=== PATIENT | female | born 1940 | race Caucasian/White ===

== ENCOUNTER 2017-09-20 17:24 | Emergency (ER) | payer MEDICARE, BC ==
[2017-09-20] MEDS ORDERED: Lidocaine 1% with EPINEPHrine 1:100,000 20 ML MDV INFILT ONE (17:25)
--- NOTE | 2017-09-20 18:20 | EDM.PDOC ---
ED HPI GENERAL MEDICAL PROBLEM - General Chief Complaint: Laceration Stated Complaint: LAC Time Seen by Provider: 09/20/17 17:25 Source of Information: Reports: Patient, EMS, EMS Notes Reviewed History Limitations: Reports: No Limitations - History of Present Illness INITIAL COMMENTS - FREE TEXT/NARRATIVE: Eugenie Bledsoe comes into [facility] ED by EMS following a fall at home unwitnessed about 2 hours ago. There was no reported LOC. Spouse summoned EMS about an hour prior to arrival. There is some R periorbital swelling laterally with a minor laceration. She is alert, orientated and cooperative. Her tetanus status is unknown at this time. - Related Data Allergies Allergy/AdvReac Type Severity Reaction Status Date / Time ibuprofen [From Advil] Allergy Vomiting Verified 02/10/13 13:55 Penicillins Allergy Rash Verified 02/10/13 13:55 pregabalin [From Lyrica] Allergy Edema Verified 12/20/13 15:49 Home Meds: Home Meds Estrogens, Conjugated [Premarin Vaginal Crm] 2 gram VAG BEDTIME PRN 02/10/13 [ History] Hydrochlorothiazide 12.5 mg PO DAILY 02/10/13 [History] Losartan [Cozaar] 100 mg PO DAILY 02/10/13 [History] Lovastatin 20 mg PO BEDTIME 02/10/13 [History] Omeprazole 20 mg PO ACBREAKFAST 02/10/13 [History] Calcium Carbonate/Vitamin D2 [Oyster Shell Calcium-Vit D Tab] 1 ea PO BID [History] Exenatide Microspheres [Bydureon Pen] 2 mg SQ MO 12/20/13 [History] amLODIPine [Norvasc] 10 mg PO DAILY 12/20/13 [History] Acetaminophen 1,000 mg PO Q6H 11/02/15 [History] Cholecalciferol (Vitamin D3) [Vitamin D3] 1,000 unit PO DAILY 11/02/15 [History] Cyanocobalamin (Vitamin B-12) [Vitamin B-12] 500 mcg PO DAILY 11/02/15 [History] Folic Acid 2.4 mg PO DAILY 11/02/15 [History] Gabapentin [Neurontin] 300 mg PO BID 11/02/15 [History] Magnesium Oxide [Magnesium] 400 mg PO BEDTIME 11/02/15 [History] Multivitamin [Multi-Vitamin Daily] 1 tab PO DAILY 11/02/15 [History] Potassium 99 mg PO DAILY 11/02/15 [History] Ubidecarenone [Coenzyme Q10] 100 mg PO DAILY 11/02/15 [History] Warfarin [Coumadin] 5 mg PO 1600 #30 tablet 11/11/15 [Rx] traMADol [Ultram] 50 mg PO Q6H PRN #30 tablet 11/11/15 [Rx] Past Medical History - Past Health History Medical/Surgical History: Denies Medical/Surgical History Cardiovascular History: Reports: High Cholesterol, Hypertension Respiratory History: Reports: PE, Other (See Below) Other Respiratory History: PE and infarction Gastrointestinal History: Reports: Colon Polyp, GERD, Hemorrhoids, Other (See Below) Other Gastrointestinal History: internal hemorrohoids 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 Neurological History: Reports: Neuropathy, Diabetic Other Neuro History: Cold laser tx on bilateral feet: Nov 2016 to Jan 2017 Endocrine/Metabolic History: Reports: Diabetes, Type II - Past Surgical History Musculoskeletal Surgical History: Reports: Arthroscopic Knee, Other (See Below) Other Musculoskeletal Surgeries/Procedures:: Bilateral SI fusion: 06-18-16 and Social & Family History - Family History Cardiac: Reports: Bypass, Hypertension, Other (See Below) Other Cardiac Family History: Quad bypass Neurological: Reports: Dementia Endocrine/Metabolic: Reports: Diabetes, type II Hematologic: Reports: Anemia Oncologic: Reports: Colon, Other (See Below) Other Oncologic Family History: Mesothelioma ED ROS GENERAL - Review of Systems Review Of Systems: ROS reveals no pertinent complaints other than HPI. ED EXAM, SKIN/RASH Exam: See Below Exam Limited By: No Limitations General Appearance: Alert, WD/WN, No Apparent Distress Eye Exam: Bilateral Eye: EOMI, Normal Fundi, PERRL, Other (R lateral periorbital laceration of facial margin) Ears: Normal External Exam Nose: Normal Inspection Throat/Mouth: Normal Inspection, Normal Lips, Normal Teeth, Normal Oropharynx, Normal Voice Head: Other (facial laceration measuring 2.5 cm along R periorbital rim laterally) Neck: Normal Inspection, Supple Respiratory/Chest: Lungs Clear, Normal Breath Sounds, Chest Non-Tender Cardiovascular: Regular Rate, Rhythm, No Murmur Back Exam: Normal Inspection Extremities: Normal Inspection Neurological: Alert, Oriented, CN II-XII Intact, Normal Cognition, No Motor/ Sensory Deficits Psychiatric: Normal Affect, Normal Mood Skin: Warm, Dry, No Rash ED SKIN PROCEDURES - Laceration/Wound Repair Right Lateral Face Lac/Wound length In cm: 2.5 Appearance: Subcutaneous, Linear, Clean Distal NVT: Neuro & Vascular Intact Anesthetic Type: Local Local Anesthesia - Lidocaine (Xylocaine): 1% with EPI Local Anesthetic Volume: 3cc Skin Prep: Chlorhexidine (Hibiciens), Saline Exploration/Debridement/Repair: Wound Explored, No Foreign Material Found Closed with: Sutures Suture Size: other (5-0) # of Sutures: 7 Suture Type: Nylon, Interrupted Drain Placement: No Sterile Dressing Applied: Nurse Tetanus Status Addressed: Yes Complications: No Course - Vital Signs Text/Narrative:: Patient tolerated procedure well. She will check with Clinic tomorrow regarding tetanus vax status. Departure - Departure Time of Disposition: 18:20 Disposition: Home, Self-Care 01 Condition: Good Clinical Impression: Laceration of face Qualifiers: Encounter type: initial encounter Qualified Code(s): S01.81XA - Laceration without foreign body of other part of head, initial encounter - Discharge Information *PRESCRIPTION DRUG MONITORING PROGRAM REVIEWED*: Not Applicable *COPY OF PRESCRIPTION DRUG MONITORING REPORT IN PATIENT [place]: Not Applicable Referrals: Vasyl Cuevas MD [Primary Care Provider] - - Problem List & Annotations (1) Laceration of face SNOMED Code(s): 283473492 Code(s): S01.81XA - LACERATION W/O FOREIGN BODY OF OTH PART OF HEAD, INIT ENCNTR Status: Acute Current Visit: Yes Annotation/Comment:: Routine wound cares, and SR in 1 week. Qualifiers: Encounter type: initial encounter Qualified Code(s): S01.81XA - Laceration without foreign body of other part of head, initial encounter - Problem List Review Problem List Initiated/Reviewed/Updated: Yes - Assessment/Plan Plan: Follow up with PCP in 1 week for SR.
[2017-09-20 20:32] VITALS: BP 156/71
== END 2017-09-20 18:45 | disposition home or self-care (01) ==
LOC: FB.ED 17:24
DX: S01.81XA Laceration without foreign body of other part of head, initial encounter (principal); I10 Essential (primary) hypertension; E78.00 Pure hypercholesterolemia, unspecified; E11.40 Type 2 diabetes mellitus with diabetic neuropathy, unspecified; K21.9 Gastro-esophageal reflux disease without esophagitis; Z79.01 Long term (current) use of anticoagulants; Z79.899 Other long term (current) drug therapy; Z88.6 Allergy status to analgesic agent; Z88.0 Allergy status to penicillin; W19.XXXA Unspecified fall, initial encounter; Y92.009 Unspecified place in unspecified non-institutional (private) residence as the place of occurrence of the external cause
CPT/HCPCS: 12011; 99283

== ENCOUNTER 2018-04-16 13:53 | Inpatient (IN) | payer MEDICARE, BC ==
[2018-04-16] MEDS ORDERED: Acetaminophen/Diphenhydramine 500-25 MG Tab PO PRN (17:10)
--- NOTE | 2018-04-16 17:34 | PCM.HP ---
H&P History of Present Illness - General Date of Service: 04/16/18 Admit Problem/Dx: Admission Diagnosis/Problem Admission Diagnosis/Problem Cervical vertebral fusion Source of Information: Patient History Limitations: Reports: No Limitations - History of Present Illness Initial Comments - Free Text/Narative: This is a 77-year-old female patient is transferred from [place] after having spinal fusion and then a couple days later a low back fusion. Patient was on Coumadin and did bridging. Apparently a aorta filter was placed for the surgery because she has history of bilateral PEs. She has little pain in her neck and back but this bearable. She has not moved her bowels in 7 days but is passing gas. She says she does have some neuropathy that they think is coming from her low back and that's in her legs. She has no other issues today. - Related Data Allergies/Adverse Reactions: Allergies Allergy/AdvReac Type Severity Reaction Status Date / Time ibuprofen [From Advil] Allergy Vomiting Verified 09/20/17 20:36 Penicillins Allergy Rash Verified 09/20/17 20:36 pregabalin [From Lyrica] Allergy Edema Verified 09/20/17 20:36 Home Medications: Home Meds Hydrochlorothiazide 12.5 mg PO DAILY 02/10/13 [History] Losartan [Cozaar] 100 mg PO DAILY 02/10/13 [History] Omeprazole 20 mg PO Q48H 02/10/13 [History] Exenatide Microspheres [Bydureon Pen] 2 mg SQ TU@0900 12/20/13 [History] Cholecalciferol (Vitamin D3) [Vitamin D3] 1,000 unit PO DAILY 11/02/15 [History] Gabapentin [Neurontin] 300 mg PO BEDTIME 11/02/15 [History] Multivitamin [Multi-Vitamin Daily] 1 tab PO BID 11/02/15 [History] Potassium 99 mg PO BID 11/02/15 [History] Ubidecarenone [Coenzyme Q10] 100 mg PO DAILY 11/02/15 [History] traMADol [Ultram] 50 mg PO Q6H PRN #30 tablet 11/11/15 [Rx] Acetaminophen/Diphenhydramine [Tylenol Pm Ex-Strength Caplet] 1 - 2 each PO BEDTIME PRN 04/16/18 [History] Folic Acid 1.2 mg PO DAILY 04/16/18 [History] Gabapentin [Neurontin] 200 mg PO DAILY 04/16/18 [History] L.acidoph,Paracasei, B.lactis [Probiotic] 1 cap PO DAILY 04/16/18 [History] Lutein 20 mg PO DAILY 04/16/18 [History] Magnesium 200 mg PO BEDTIME 04/16/18 [History] Ranitidine HCl [Ranitidine] 150 mg PO Q48H 04/16/18 [History] Simvastatin 20 mg PO BEDTIME 04/16/18 [History] Past Medical History - Past Health History Medical/Surgical History: Denies Medical/Surgical History Cardiovascular History: Reports: High Cholesterol, Hypertension Respiratory History: Reports: PE, Other (See Below) Other Respiratory History: PE and infarction Gastrointestinal History: Reports: Colon Polyp, GERD, Hemorrhoids, Other (See Below) Other Gastrointestinal History: internal hemorrohoids 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 Neurological History: Reports: Neuropathy, Diabetic Other Neuro History: Cold laser tx on bilateral feet: Nov 2016 to Jan 2017 Endocrine/Metabolic History: Reports: Diabetes, Type II - Past Surgical History Musculoskeletal Surgical History: Reports: Arthroscopic Knee, Other (See Below) Other Musculoskeletal Surgeries/Procedures:: Bilateral SI fusion: 06-18-16 and Social & Family History - Family History Cardiac: Reports: Bypass, Hypertension, Other (See Below) Other Cardiac Family History: Quad bypass Neurological: Reports: Dementia Endocrine/Metabolic: Reports: Diabetes, type II Hematologic: Reports: Anemia Oncologic: Reports: Colon, Other (See Below) Other Oncologic Family History: Mesothelioma H&P Review of Systems - Review of Systems: Review Of Systems: See Below General: Reports: No Symptoms HEENT: Reports: No Symptoms Pulmonary: Reports: No Symptoms Cardiovascular: Reports: No Symptoms Gastrointestinal: Reports: No Symptoms Genitourinary: Reports: No Symptoms Skin: Reports: Other (See history of present illness) Psychiatric: Reports: No Symptoms Neurological: Reports: Numbness Hematologic/Lymphatic: Reports: No Symptoms Immunologic: Reports: No Symptoms Exam - Exam Exam: See Below - Vital Signs Vital Signs: Last Vital Signs Temp 97.6 F 02/04/19 16:00 Pulse 73 04/16/18 16:00 Resp 18 04/16/18 16:00 BP 162/71 H 04/16/18 16:00 Pulse Ox 97 04/16/18 16:00 Weight: 176 lb 4 oz - Exam General: Alert, Oriented, Cooperative HEENT: Hearing Intact, Mucosa Moist & [place], Posterior Pharynx Clear, TMs Clear Neck: Other (Cervical hard collar) Lungs: Clear to Auscultation Cardiovascular: Regular Rate, Regular Rhythm. No: Systolic Murmur GI/Abdominal Exam: Normal Bowel Sounds, Soft, Non-Tender, No Organomegaly, No Distention, No Abnormal Bruit, No Mass Back Exam: Other (Not able to examine because she is lying in bed) Extremities: Normal Inspection, Non-Tender, No Pedal Edema, Other (Weakness legs bilateral. Arms normal strength bilateral) Skin: Warm, Dry, Intact Neurological: Normal Speech, Normal Tone Neuro Extensive - Motor, Sensory, Reflexes: No: Normal Gait Psychiatric: Alert, Normal Affect, Normal Mood - Problem List (1) Cervical vertebral fusion SNOMED Code(s): 142856907 ICD Code: M43.22 - FUSION OF SPINE, CERVICAL REGION Status: Acute Current Visit: Yes (2) S/P lumbar spinal fusion SNOMED Code(s): 98738187338680, 33869774, 32561046772641 ICD Code: Z98.1 - ARTHRODESIS STATUS Status: Acute Current Visit: No (3) Chronic anticoagulation SNOMED Code(s): 661040715 ICD Code: Z79.01 - SPECIAL NEEDS NANNY (CURRENT) USE OF ANTICOAGULANTS Status: Chronic Current Visit: No (4) Hypertension SNOMED Code(s): 34412807 ICD Code: I10 - ESSENTIAL (PRIMARY) HYPERTENSION Status: Chronic Current Visit: No (5) Type 2 diabetes mellitus SNOMED Code(s): 40194606 ICD Code: E11.9 - TYPE 2 DIABETES MELLITUS WITHOUT COMPLICATIONS Status: Chronic Current Visit: No (6) Constipation SNOMED Code(s): 71885650 ICD Code: K59.00 - CONSTIPATION, UNSPECIFIED Status: Acute Current Visit : Yes Problem List Initiated/Reviewed/Updated: Yes Orders Last 24hrs: Active Orders 24 hr Category Date Time Status Patient Status [ADT] Routine ADT 04/16/18 17:07 Ordered Blood Glucose Check, Bedside [RC] [facility] Care 04/16/18 17:07 Ordered Height and Weight [RC] WEEKLY Care 04/16/18 17:07 Ordered Oxygen Therapy [RC] PRN Care 04/16/18 17:07 Ordered Up With Assistance [RC] ASDIRECTED Care 04/16/18 17:07 Ordered Vital Signs [RC] PER UNIT ROUTINE Care 04/16/18 17:07 Ordered OT Evaluation and Treatment [CONS] Routine Cons 04/16/18 17:07 Ordered PT Evaluation and Treatment [CONS] Routine Cons 04/16/18 17:07 Ordered Consistent Carbohydrate Diet [DIET] Diet 04/16/18 Dinner Ordered Acetaminophen/Diphenhydramine [Tylenol PM Extra Med 04/16/18 17:10 Ordered Strength] 1 each PO BEDTIME PRN Cholecalciferol (Vitamin D3) [Vitamin D3] Med 04/17/18 09:00 Ordered 1,000 units PO DAILY Exenatide Microspheres [Bydureon Pen] Med 04/17/18 09:00 Ordered 2 mg SQ TU@0900 Folic Acid [Folic Acid] Med 04/17/18 09:00 Ordered 1.2 mg PO DAILY Gabapentin [Neurontin] Med 04/17/18 09:00 Ordered 200 mg PO DAILY Gabapentin [Neurontin] Med 04/16/18 21:00 Ordered 300 mg PO BEDTIME L.acidoph,Paracasei, B.lactis [Probiotic] Med 04/17/18 09:00 Ordered 1 cap PO DAILY Losartan [Cozaar] Med 04/17/18 09:00 Ordered 100 mg PO DAILY Lutein [Lutein] Med 04/17/18 09:00 Ordered 20 mg PO DAILY Magnesium [Magnesium] Med 04/16/18 21:00 Ordered 200 mg PO BEDTIME Multivitamins [Tab-A-Champ] Med 04/16/18 21:00 Ordered 1 tab PO BID Omeprazole [Omeprazole] Med 04/16/18 17:15 Ordered 20 mg PO Q48H Polyethylene Glycol 3350 [MiraLAX] Med 04/17/18 09:00 Ordered 17 gm PO DAILY Potassium [Potassium] Med 04/16/18 21:00 Ordered 99 mg PO BID Ranitidine HCl [Ranitidine] Med 04/16/18 17:15 Ordered 150 mg PO Q48H Simvastatin [Zocor] Med 04/16/18 21:00 Ordered 20 mg PO BEDTIME Ubidecarenone [Coenzyme Q10] Med 04/17/18 09:00 Ordered 100 mg PO DAILY hydroCHLOROthiazide Med 04/17/18 09:00 Ordered 12.5 mg PO DAILY traMADol [Ultram] Med 04/16/18 17:10 Ordered 50 mg PO Q6H PRN Resuscitation Status Routine Resus Stat 04/16/18 17:07 Ordered Medication Orders Acetaminophen/Diphenhydramine HCl (Tylenol Pm Extra Strength) 1 tab PO BEDTIME PRN PRN Reason: Sleep Cholecalciferol (Vitamin D3) 1,000 units PO DAILY [facility] Coenzyme Q10 (Coenzyme Q10) 100 mg PO DAILY [facility] Folic Acid (Folic Acid) 1.2 mg PO DAILY [facility] Gabapentin (Neurontin) 200 mg PO DAILY [facility] Gabapentin (Neurontin) 300 mg PO BEDTIME [facility] Hydrochlorothiazide (Hydrochlorothiazide) 12.5 mg PO DAILY [facility] Losartan Potassium (Cozaar) 100 mg PO DAILY [facility] Lutein (Lutein) 20 mg PO DAILY [facility] Magnesium Oxide (Magnesium Oxide) 200 mg PO BEDTIME AMY Multivitamins/Minerals/Vitamin C (Tab-A-Champ) 1 tab PO BID AMY Non-Formulary Medication (Exenatide Microspheres [Bydureon Pen]) 2 mg SQ TU@ 0900 [facility] Non-Formulary Medication (L.Acidoph,Paracasei, B.Lactis [Probiotic]) 1 cap PO DAILY [facility]Y Non-Formulary Medication (Omeprazole [Omeprazole]) 20 mg PO Q48H AMY Non-Formulary Medication (Potassium [Potassium]) 99 mg PO BID AMY Non-Formulary Medication (Ranitidine Hcl [Ranitidine]) 150 mg PO Q48H AMY Polyethylene Glycol (Miralax) 17 gm PO DAILY AMY Simvastatin (Zocor) 20 mg PO BEDTIME AMY Tramadol HCl (Ultram) 50 mg PO Q6H PRN PRN Reason: Pain Assessment/Plan Comment:: 1. Admit to swing bed. 2. Discussed living fry. She wants to be resuscitated and it doesn't go well and her family's to make the call. Full resuscitation. 3. Restart home medications. 4. PT/OT. 5. Diabetic diet with Accu-Cheks twice a day. 6. MiraLAX daily for constipation. 7. Patient's normally and Coumadin and was on Lovenox. The Coumadin was stopped and were supposed to recheck recheck INR on April 20 and restart Coumadin on the . On the order it says hold Lovenox. She does have a vena cava filter in. I tried to call the surgeon to make sure these are accurate orders. I also talked to Dr. Cuevas in the referred me to the surgeon. I could not get a hold of him.
[2018-04-16] MEDS: traMADol 50 MG Tab PO PRN (19:41)
[2018-04-16] MEDS: Gabapentin 300 MG Cap PO SCH (20:29)
[2018-04-16] MEDS: Multivitamin Tab PO SCH (20:31)
[2018-04-16] MEDS: Simvastatin 20 MG Tab PO SCH (20:31)
[2018-04-16] MEDS: Magnesium Oxide 400 MG Tab PO SCH (20:31)
[2018-04-16] MEDS ORDERED: Non-Formulary Medication 1 Each (Potassium [Potassium] 99 MG) PO SCH (21:00)
[2018-04-16] MEDS: Magnesium Hydroxide 400 MG/5 ML Susp 30 ML Cup PO PRN (21:25)
[2018-04-17] MEDS: traMADol 50 MG Tab PO PRN ×3 (07:42→20:22)
[2018-04-17] MEDS: Gabapentin 100 MG Cap PO SCH (08:03)
[2018-04-17] MEDS: Saccharomyces Boulardii (Probiotic) 250 MG Cap PO SCH (08:28)
[2018-04-17] MEDS: Famotidine 20 MG Tab PO SCH (08:28)
[2018-04-17] MEDS: Polyethylene Glycol 3350 Powder 17 GM Packet PO SCH (08:28)
[2018-04-17] MEDS: Multivitamin Tab PO SCH ×2 (08:28→20:21)
[2018-04-17] MEDS: Losartan 100 MG Tab PO SCH (08:29)
[2018-04-17] MEDS: Folic Acid 0.4 MG Tab PO SCH (08:29)
[2018-04-17] MEDS: Cholecalciferol (Vitamin D3) 1,000 Unit Tab PO SCH (08:29)
[2018-04-17] MEDS: Hydrochlorothiazide 12.5 MG Cap PO SCH (08:29)
--- NOTE | 2018-04-17 11:06 | PCM.SN ---
<Ann Alejandro - Last Filed: 04/17/18 11:05> - Free Text/Narrative Note: Neurosurgeon was contacted regarding anticoagulation and per his recommendations , warfarin will be restarted this MondayApr 21 and there is no need for bridging. We can check INR on Monday. <Melo Brito - Last Filed: 04/18/18 17:50> - Free Text/Narrative Note: I saw this patient with the resident and agree with the above note.
[2018-04-17] MEDS: Acetaminophen 325 MG Tab PO PRN ×2 (13:28→18:13)
[2018-04-17] MEDS: Magnesium Oxide 400 MG Tab PO SCH (20:20)
[2018-04-17] MEDS: Simvastatin 20 MG Tab PO SCH (20:21)
[2018-04-17] MEDS: Gabapentin 300 MG Cap PO SCH (20:21)
[2018-04-18] MEDS: traMADol 50 MG Tab PO PRN ×3 (04:13→18:02)
[2018-04-18] MEDS: Magnesium Hydroxide 400 MG/5 ML Susp 30 ML Cup PO PRN (04:18)
[2018-04-18] MEDS: Pantoprazole 40 MG Tab.CR PO SCH (06:40)
[2018-04-18] MEDS ORDERED: oxyCODONE 5 MG Tab PO PRN (08:18)
--- NOTE | 2018-04-18 08:18 | PCM.PN ---
- General Info Date of Service: 04/18/18 Admission Dx/Problem (Free Text): Patient complaining of right upper arm and lower arm pain. She has a neck brace on and just had surgery. She can move her arm without any difficulty. Tramadol is not helping. They stated hydrocodone if her mental status changes. - Patient Data Vitals - Most Recent: Last Vital Signs Temp 97.3 F 04/17/18 08:37 Pulse 69 04/17/18 08:37 Resp 20 04/17/18 08:37 BP 170/78 H 04/17/18 08:37 Pulse Ox 95 04/17/18 08:37 Weight - Most Recent: 176 lb 4 oz Lab Results Last 24 Hours: Laboratory Results - last 24 hr 04/17/18 04/18/18 Range/Units 17:22 06:12 POC Glucose 114 98 (80-116) mg/dL Med Orders - Current: Current Medications Acetaminophen (Tylenol) 650 mg PO Q4H PRN PRN Reason: break through pain Last Admin: 04/17/18 18:13 Dose: 650 mg Acetaminophen/Diphenhydramine HCl (Tylenol Pm Extra Strength) 1 tab PO BEDTIME PRN PRN Reason: Sleep Last Admin: 04/17/18 22:44 Dose: 1 tab Cholecalciferol (Vitamin D3) 1,000 units PO DAILY [facility] Last Admin: 04/17/18 08:29 Dose: 1,000 units Coenzyme Q10 (Coenzyme Q10) 100 mg PO DAILY [facility] Last Admin: 04/17/18 08:28 Dose: 100 mg Famotidine (Pepcid) 20 mg PO Q48H [facility] Last Admin: 04/17/18 08:28 Dose: 20 mg Folic Acid (Folic Acid) 1.2 mg PO DAILY [facility] Last Admin: 04/17/18 08:29 Dose: 1.2 mg Gabapentin (Neurontin) 200 mg PO DAILY [facility] Last Admin: 04/17/18 08:03 Dose: 200 mg Gabapentin (Neurontin) 300 mg PO BEDTIME [facility] Last Admin: 04/17/18 20:21 Dose: 300 mg Hydrochlorothiazide (Hydrochlorothiazide) 12.5 mg PO DAILY [facility] Last Admin: 04/17/18 08:29 Dose: 12.5 mg Losartan Potassium (Cozaar) 100 mg PO DAILY [facility] Last Admin: 04/17/18 08:29 Dose: 100 mg Lutein (Lutein) 20 mg PO DAILY [facility] Last Admin: 04/17/18 08:28 Dose: 20 mg Magnesium Hydroxide (Milk Of Magnesia) 30 ml PO DAILY PRN PRN Reason: Constipation Last Admin: 04/18/18 04:18 Dose: 30 ml Magnesium Oxide (Magnesium Oxide) 200 mg PO BEDTIME [facility] Last Admin: 04/17/18 20:20 Dose: 200 mg Multivitamins/Minerals/Vitamin C (Tab-A-Champ) 1 tab PO BID [facility] Last Admin: 04/17/18 20:21 Dose: 1 tab Non-Formulary Medication (Exenatide Microspheres [Bydureon Pen]) 2 mg SQ TU@ 0900 [facility] Non-Formulary Medication (Potassium [Potassium]) 99 mg PO BID [facility] Pantoprazole Sodium (Protonix) 40 mg PO Q48H [facility] Last Admin: 04/18/18 06:40 Dose: 40 mg Polyethylene Glycol (Miralax) 17 gm PO DAILY [facility] Last Admin: 04/17/18 08:28 Dose: 17 gm Saccharomyces Boulardii (Florastor) 250 mg PO DAILY [facility] Last Admin: 04/17/18 08:28 Dose: 250 mg Simvastatin (Zocor) 20 mg PO BEDTIME [facility] Last Admin: 04/17/18 20:21 Dose: 20 mg Tramadol HCl (Ultram) 50 mg PO Q6H PRN PRN Reason: Pain Last Admin: 04/18/18 04:13 Dose: 50 mg Warfarin Sodium (Coumadin) 5 mg PO DAILY@1600 [facility] Warfarin Sodium (Coumadin Sliding Scale) 1 each PO ASDIRECTED [facility] - Exam General: Alert, Oriented HEENT: Other (Hard collar on. I did not remove it for exam.) Lungs: Normal Respiratory Effort Extremities: Other (Right arm has no pain on palpation. Normal range of motion without difficulty) - Problem List & Annotations (1) Cervical vertebral fusion SNOMED Code(s): 443709662 Code(s): M43.22 - FUSION OF SPINE, CERVICAL REGION Status: Acute Current Visit: Yes (2) S/P lumbar spinal fusion SNOMED Code(s): 37797113486029, 03535909, [id number] Code(s): Z98.1 - ARTHRODESIS STATUS Status: Acute Current Visit: No (3) Chronic anticoagulation SNOMED Code(s): 626932805 Code(s): Z79.01 - DETENTION (CURRENT) USE OF ANTICOAGULANTS Status: Chronic Current Visit: No (4) Hypertension SNOMED Code(s): 19553534 Code(s): I10 - ESSENTIAL (PRIMARY) HYPERTENSION Status: Chronic Current Visit: No (5) Type 2 diabetes mellitus SNOMED Code(s): 08749106 Code(s): E11.9 - TYPE 2 DIABETES MELLITUS WITHOUT COMPLICATIONS Status: Chronic Current Visit: No (6) Constipation SNOMED Code(s): 59998751 Code(s): K59.00 - CONSTIPATION, UNSPECIFIED Status: Acute Current Visit: Yes - Problem List Review Problem List Initiated/Reviewed/Updated: Yes - My Orders Last 24 Hours: My Active Orders 04/17/18 09:00 Cholecalciferol (Vitamin D3) [Vitamin D3] 1,000 units PO DAILY Exenatide Microspheres [Bydureon Pen] 2 mg SQ TU@0900 Famotidine [Pepcid] 20 mg PO Q48H Folic Acid 1.2 mg PO DAILY Gabapentin [Neurontin] 200 mg PO DAILY Losartan [Cozaar] 100 mg PO DAILY Lutein 20 mg PO DAILY Polyethylene Glycol 3350 [MiraLAX] 17 gm PO DAILY Saccharomyces Boulardii [Florastor] 250 mg PO DAILY Ubidecarenone [Coenzyme Q10] 100 mg PO DAILY hydroCHLOROthiazide 12.5 mg PO DAILY 04/17/18 13:20 Acetaminophen [Tylenol] 650 mg PO Q4H PRN 04/18/18 07:30 Pantoprazole [ProTONIX] 40 mg PO Q48H 04/20/18 06:00 INR,PT,PROTHROMBIN TIME [COAG] Routine 04/21/18 06:00 INR,PT,PROTHROMBIN TIME [COAG] DAILY 04/21/18 08:30 Warfarin Sliding Scale [Coumadin Sliding Scale] 1 each PO ASDIRECTED 04/21/18 16:00 Warfarin [Coumadin] 5 mg PO DAILY@1600 04/22/18 06:00 INR,PT,PROTHROMBIN TIME [COAG] DAILY 04/23/18 06:00 INR,PT,PROTHROMBIN TIME [COAG] DAILY 04/24/18 06:00 INR,PT,PROTHROMBIN TIME [COAG] DAILY 04/25/18 06:00 INR,PT,PROTHROMBIN TIME [COAG] DAILY - Plan Plan:: 1. Try some oxycodone if the tramadol does not help her pain. Use tramadol for mild pain oxycodone for severe pain. Watch for mental status changes.
[2018-04-18] MEDS ORDERED: Magnesium Citrate Solution 296 ML Bottle PO ONE (08:31)
[2018-04-18] MEDS ORDERED: Magnesium Hydroxide 400 MG/5 ML Susp 30 ML Cup PO ONE (08:40)
[2018-04-18] MEDS: Losartan 100 MG Tab PO SCH (08:45)
[2018-04-18] MEDS: Polyethylene Glycol 3350 Powder 17 GM Packet PO SCH (08:46)
[2018-04-18] MEDS: Saccharomyces Boulardii (Probiotic) 250 MG Cap PO SCH (08:46)
[2018-04-18] MEDS: Hydrochlorothiazide 12.5 MG Cap PO SCH (08:46)
[2018-04-18] MEDS: Folic Acid 0.4 MG Tab PO SCH (08:46)
[2018-04-18] MEDS: Cholecalciferol (Vitamin D3) 1,000 Unit Tab PO SCH (08:46)
[2018-04-18] MEDS: Multivitamin Tab PO SCH ×2 (08:47→21:39)
[2018-04-18] MEDS: Gabapentin 100 MG Cap PO SCH (08:59)
[2018-04-18] MEDS: EXENATIDE MICROSPHERES 2 MG SQ SCH (14:31)
[2018-04-18] MEDS: Acetaminophen 325 MG Tab PO PRN ×2 (17:17→22:10)
[2018-04-18] MEDS: Magnesium Oxide 400 MG Tab PO SCH (21:38)
[2018-04-18] MEDS: Simvastatin 20 MG Tab PO SCH (21:38)
[2018-04-18] MEDS: Gabapentin 300 MG Cap PO SCH (21:40)
[2018-04-19] MEDS: traMADol 50 MG Tab PO PRN ×3 (01:09→15:45)
[2018-04-19] MEDS: Acetaminophen 325 MG Tab PO PRN (04:14)
[2018-04-19] MEDS: Cholecalciferol (Vitamin D3) 1,000 Unit Tab PO SCH (08:41)
[2018-04-19] MEDS: Folic Acid 0.4 MG Tab PO SCH (08:41)
[2018-04-19] MEDS: Saccharomyces Boulardii (Probiotic) 250 MG Cap PO SCH (08:42)
[2018-04-19] MEDS: Famotidine 20 MG Tab PO SCH (08:42)
[2018-04-19] MEDS: Losartan 100 MG Tab PO SCH (08:42)
[2018-04-19] MEDS: Multivitamin Tab PO SCH ×2 (08:43→20:40)
[2018-04-19] MEDS: Polyethylene Glycol 3350 Powder 17 GM Packet PO SCH (08:43)
[2018-04-19] MEDS: Hydrochlorothiazide 12.5 MG Cap PO SCH (08:43)
[2018-04-19] MEDS: Gabapentin 100 MG Cap PO SCH (08:46)
[2018-04-19] MEDS: Celecoxib 200 MG Cap PO SCH ×2 (11:30→20:40)
[2018-04-19] MEDS: Magnesium Oxide 400 MG Tab PO SCH (20:40)
[2018-04-19] MEDS: Simvastatin 20 MG Tab PO SCH (20:40)
[2018-04-19] MEDS: Gabapentin 300 MG Cap PO SCH (20:41)
[2018-04-20] MEDS: traMADol 50 MG Tab PO PRN ×4 (00:04→18:00)
[2018-04-20] MEDS: Acetaminophen 325 MG Tab PO PRN (04:26)
[2018-04-20] MEDS: Pantoprazole 40 MG Tab.CR PO SCH (07:52)
[2018-04-20] MEDS ORDERED: Acetaminophen 500 MG Tab PO SCH (08:00)
[2018-04-20] MEDS: Celecoxib 200 MG Cap PO SCH (08:01)
[2018-04-20] MEDS: Losartan 100 MG Tab PO SCH (08:02)
[2018-04-20] MEDS: Folic Acid 0.4 MG Tab PO SCH (08:04)
[2018-04-20] MEDS: Hydrochlorothiazide 12.5 MG Cap PO SCH (08:05)
[2018-04-20] MEDS: Multivitamin Tab PO SCH ×2 (08:06→20:52)
[2018-04-20] MEDS: Cholecalciferol (Vitamin D3) 1,000 Unit Tab PO SCH (08:06)
[2018-04-20] MEDS: Polyethylene Glycol 3350 Powder 17 GM Packet PO SCH (08:07)
[2018-04-20] MEDS: Gabapentin 100 MG Cap PO SCH (08:20)
[2018-04-20] MEDS: Saccharomyces Boulardii (Probiotic) 250 MG Cap PO SCH (08:25)
[2018-04-20] MEDS: busPIRone 5 MG Tab PO SCH ×2 (08:26→20:49)
--- NOTE | 2018-04-20 11:06 | CT ---
INDICATION: Status of arthrodesis. CT CERVICAL SPINE WITHOUT CONTRAST: Spiral 2.5 mm axial sections were obtained through the cervical spine with sagittal and coronal reconstructions, 04/20/18 - no comparisons were available at the time of dictation. Total exam DLP = 538.86 mGy-cm. Vertebral body heights were fairly well-maintained, except for some mild loss anteriorly at C7. The C2-3, C3-4 disk spaces appeared relatively normal. Degenerative changes of moderate to moderately severe degree are noted at the atlantoodontoid joint. The atlas and the axis were intact. There is a fusion noted at the C4 through C7 level with a plate and screws in place, which appear to be intact. Position and alignment of the vertebral elements in this area appear to be satisfactory. Disk spacers are present. The screws at the C7 level are at the extreme caudal aspect of the vertebral body and are not fully advanced into the vertebral body. Comparison with previous examinations will be made when they become available. The appearance of the fusion was otherwise unremarkable. The prevertebral space appears to be normal, except for impingement on it by the plate and screws of the inferior portion of the fusion. No evidence of spinal stenosis is seen. The lungs included on the study showed no acute process with scarring at the left apex and to a minimal extent right apex. IMPRESSION: Overall stable appearance of fusion at the C4 through C7 level. Comparison with previous examination will be obtained when they become available. MTDD
--- NOTE | 2018-04-20 11:18 | CT ---
INDICATION: Status of arthrodesis. CT LUMBOSACRAL SPINE WITHOUT CONTRAST: Spiral 2.5 mm axial sections were obtained through the lumbosacral spine with sagittal and coronal reconstructions , 04/20/18. Comparisons were not available at the time of dictation. Total exam DLP = 1,268.50 mGy-cm. A mild dextroconvex rotoscoliosis of the lumbar spine is noted. Incidental note is made of an IVC umbrella. There also is noted what appears to be a 41 mm parapelvic cyst of the right kidney. There also appears to be a cyst at the left kidney lower pole, only partially visualized. Calcifications are also noted in the aorta, splenic, renal, and iliac arteries. There is noted fusion at the L3 through L5 vertebral bodies with a disk spacer at the L3-4 level and at the L4-5 level. There is evidence of laminectomy at the L4-5 level. Narrowing of the L5-S1 disk space is noted with hypertrophic degenerative changes at that level. Hypertrophic degenerative changes are noted at the posterior elements of L2-3 through L5-S1 to mild to moderate degree , most severe at the lower levels. There is also disk disease at L2-3 with vacuum disk phenomenon and hypertrophic degenerative changes off vertebral bodies at that level, as well as at the remainder of the thoracolumbar spine. There are also noted multiple pins extending transversely through the sacroiliac joints bilaterally. There are three of these triangular metallic pins bilaterally. The fusion appears to be grossly intact with satisfactory alignment of vertebral elements included. IMPRESSION: 1. Fusion L3 through L5 appears satisfactory, await previous images for comparison. 2. Satisfactory position and alignment of sacroiliac joints with three pins noted fixing the joints in place. 3. Degenerative changes and disk disease, as noted above. 4. Apparent cystic changes in the kidneys. [facility]
--- NOTE | 2018-04-20 13:31 | PCM.PN ---
- General Info Date of Service: 04/20/18 Subjective Update: Patient is a 77-year-old female who has a long-standing history of osteoarthritis with cervical degenerative joint disease and lumbar degenerative joint disease. She also has a history of DVT with PE and a previous surgery around 2010 on her lumbar spine. She made the decision to go ahead with Dr. Higuera from [place] (neurosurgeon) to have cervical spinal fusion done but because she would need to go off her anticoagulation for this an IVC filter was placed on 04/03/18 with the intent to remove this in 3 months after her surgery. She then proceeded to have C4-C7 decompression and fusion anteriorly in [place] on 04/10/18. The plan was to wait until a month out and then do lumbar spine fusion but unfortunately the patient had severe neurogenic claudication symptoms on 04/12/18 and was taken to the operating room emergently for L3-L4 fusion with screw placement. Pain control was a significant issue after the patient's surgeries and she was treated initially with tramadol and then put on hydrocodone which caused her to be encephalopathic and was stopped. She is also on gabapentin chronically for pain and has continued on her home dose of 200 mg every morning and 300 mg every evening. Past medical history significant for: Hypertension Hyperlipidemia Fibromyalgia Diabetes mellitus type 2 with peripheral neuropathy History of anemia History of DVT with PE bilaterally and on chronic anticoagulation. Patient had an IVC filter placed before her procedure since she was going to need to be off anticoagulation due to the spinal fusion. Osteoarthritis with a history of bursitis with bilateral shoulders Gastroesophageal reflux disease Status post total knee arthroplasty The patient has struggled with pain control here since she was admitted here on 04/16/18 for swing bed status. She was started on Celebrex yesterday but I recommended we discontinue that as neurosurgery had requested absolute no anticoagulation until at least 10 days out from her lumbar spine procedure with the plan to gradually drift up on her warfarin. The Celebrex did improve her pain dramatically. She continues to have left arm tingling and burning particularly in the shoulder and it greatly limits her therapy participation. At rest she is fairly comfortable. She has no chest pain, no shortness of breath , no nausea, no vomiting. She was struggling with constipation but now has been moving her bowels although it's been loose, and she's had no leg pain or swelling. - Patient Data Vitals - Most Recent: Last Vital Signs Temp 35.7 C 04/20/18 07:55 Pulse 84 04/20/18 07:55 Resp 18 04/20/18 07:55 BP 161/68 H 04/20/18 08:02 Pulse Ox 98 04/20/18 07:55 Weight - Most Recent: 75.863 kg Lab Results Last 24 Hours: Laboratory Results - last 24 hr 04/19/18 04/20/18 04/20/18 Range/Units 16:56 05:54 05:55 PT 10.2 (8.7-11.1) INR 1.05 (0.89-1.13) POC Glucose 152 H 139 H (80-116) mg/dL Med Orders - Current: Current Medications Acetaminophen (Tylenol Extra Strength) 1,000 mg PO Q8H [facility] Buspirone HCl (Buspar) 5 mg PO BID [facility] Last Admin: 04/20/18 08:26 Dose: 5 mg Cholecalciferol (Vitamin D3) 1,000 units PO DAILY [facility] Last Admin: 04/20/18 08:06 Dose: 1,000 units Coenzyme Q10 (Coenzyme Q10) 100 mg PO DAILY [facility] Last Admin: 04/20/18 08:01 Dose: 100 mg Famotidine (Pepcid) 20 mg PO Q48H [facility] Last Admin: 04/19/18 08:42 Dose: 20 mg Folic Acid (Folic Acid) 1.2 mg PO DAILY [facility] Last Admin: 04/20/18 08:04 Dose: 1.2 mg Gabapentin (Neurontin) 300 mg PO TID [facility] Hydrochlorothiazide (Hydrochlorothiazide) 12.5 mg PO DAILY [facility] Last Admin: 04/20/18 08:05 Dose: 12.5 mg Losartan Potassium (Cozaar) 100 mg PO DAILY [facility] Last Admin: 04/20/18 08:02 Dose: 100 mg Lutein (Lutein) 20 mg PO DAILY [facility] Last Admin: 04/20/18 08:05 Dose: 20 mg Magnesium Hydroxide (Milk Of Magnesia) 30 ml PO DAILY PRN PRN Reason: Constipation Last Admin: 04/18/18 04:18 Dose: 30 ml Magnesium Oxide (Magnesium Oxide) 200 mg PO BEDTIME [facility] Last Admin: 04/19/18 20:40 Dose: 200 mg Multivitamins/Minerals/Vitamin C (Tab-A-Champ) 1 tab PO BID [facility] Last Admin: 04/20/18 08:06 Dose: 1 tab Exenatide Microspheres [ Bydureon Pen] 2 Mg * Ptom 2 mg SQ We@0900 [facility] Last Admin: 04/18/18 14:31 Dose: 2 mg Non-Formulary Medication (Potassium [Potassium]) 99 mg PO BID [facility] Pantoprazole Sodium (Protonix) 40 mg PO Q48H [facility] Last Admin: 04/20/18 07:52 Dose: 40 mg Polyethylene Glycol (Miralax) 17 gm PO DAILY [facility] Last Admin: 04/20/18 08:07 Dose: Not Given Saccharomyces Boulardii (Florastor) 250 mg PO DAILY [facility] Last Admin: 04/20/18 08:25 Dose: 250 mg Simvastatin (Zocor) 20 mg PO BEDTIME [facility] Last Admin: 04/19/18 20:40 Dose: 20 mg Tramadol HCl (Ultram) 50 mg PO Q6H PRN PRN Reason: Pain Last Admin: 04/20/18 11:53 Dose: 50 mg Warfarin Sodium (Coumadin) 5 mg PO DAILY@1600 [facility] Warfarin Sodium (Coumadin Sliding Scale) 1 each PO ASDIRECTED [facility] Discontinued Medications Acetaminophen (Tylenol) 650 mg PO Q4H PRN PRN Reason: break through pain Last Admin: 04/20/18 04:26 Dose: 650 mg Acetaminophen (Tylenol Extra Strength) 1,000 mg PO Q8H [facility] Last Admin: 04/20/18 08:25 Dose: 1,000 mg Acetaminophen/Diphenhydramine HCl (Tylenol Pm Extra Strength) 1 tab PO BEDTIME PRN PRN Reason: Sleep Last Admin: 04/17/18 22:44 Dose: 1 tab Celecoxib (Celebrex) 200 mg PO BID [facility] Last Admin: 04/20/18 08:01 Dose: 200 mg Gabapentin (Neurontin) 200 mg PO DAILY [facility] Last Admin: 04/20/18 08:20 Dose: 200 mg Gabapentin (Neurontin) 300 mg PO BEDTIME [facility] Last Admin: 04/19/18 20:41 Dose: 300 mg Magnesium Citrate (Citrate Of Magnesia) 296 ml PO ONETIME ONE Stop: 04/18/18 08:32 Last Admin: 04/18/18 08:44 Dose: 296 ml Magnesium Hydroxide (Milk Of Magnesia) 30 ml PO ONETIME ONE Stop: 04/18/18 08:41 Last Admin: 04/18/18 08:40 Dose: 30 ml Oxycodone HCl (Oxycodone) 5 mg PO Q6H PRN PRN Reason: Pain Last Admin: 04/18/18 08:41 Dose: 5 mg - Exam General: Alert, Oriented, Cooperative, No Acute Distress HEENT: Pupils Equal, Pupils Reactive Neck: Supple Lungs: Clear to Auscultation, Normal Respiratory Effort Cardiovascular: Regular Rate, Regular Rhythm, No Murmurs GI/Abdominal Exam: Normal Bowel Sounds, Soft, Non-Tender, No Distention Extremities: No Pedal Edema Wound/Incisions: Healing Well, No Drainage Psy/Mental Status: Alert, Normal Affect, Normal Mood - Problem List & Annotations (1) Cervical vertebral fusion SNOMED Code(s): 941839214 Code(s): M43.22 - FUSION OF SPINE, CERVICAL REGION Status: Acute Current Visit: Yes Annotation/Comment:: We'll increase gabapentin to 300 mg 3 times a day to see if this gives improved pain management. Continue tramadol. PT and OT to continue to work with the patient for both her cervical spine and lumbar spine with postsurgical precautions. (2) S/P lumbar spinal fusion SNOMED Code(s): 45250594762714, 44729208, 61501305710702 Code(s): Z98.1 - ARTHRODESIS STATUS Status: Acute Current Visit: No Annotation/Comment:: See above. (3) Constipation SNOMED Code(s): 23134598 Code(s): K59.00 - CONSTIPATION, UNSPECIFIED Status: Acute Current Visit: Yes Annotation/Comment:: Now with loose stools. Scheduled MiraLAX each day and then added when necessary docusate sodium and patient can decline the MiraLAX if she feels she is becoming too loose. (4) Type 2 diabetes mellitus SNOMED Code(s): 20255667 Code(s): E11.9 - TYPE 2 DIABETES MELLITUS WITHOUT COMPLICATIONS Status: Chronic Current Visit: No Annotation/Comment:: Currently on exenatide once weekly and got a dose yesterday 04/19. Blood sugars have been under 150 and will continue to monitor. (5) Chronic anticoagulation SNOMED Code(s): 937948357 Code(s): Z79.01 - [facility] COORDIN[facility] (CURRENT) USE OF ANTICOAGULANTS Status: Chronic Current Visit: No Annotation/Comment:: Hold until 04/21/18 at which point warfarin can be restarted with the plan to drift up gradually so patient will be fully anticoagulated around postoperative day #10. (6) Hypertension SNOMED Code(s): 73503767 Code(s): I10 - ESSENTIAL (PRIMARY) HYPERTENSION Status: Chronic Current Visit: No Annotation/Comment:: Was running a little high this morning. We'll monitor. (7) Anxiety SNOMED Code(s): 26321791 Code(s): F41.9 - ANXIETY DISORDER, UNSPECIFIED Status: Acute Current Visit: Yes Annotation/Comment:: Patient has really struggled with anxiety since her surgery and needing to go back in for her second surgery. I started her on BuSpar this morning which has seemed to be fairly effective. Continue to monitor. (8) DVT prophylaxis SNOMED Code(s): 295339026, 768832823 Code(s): TOT6329 - Status: Acute Current Visit: Yes Annotation/Comment :: SCDs, NORAH tomlinson, restart warfarin 04/21/18. IVC filter is in place. - Problem List Review Problem List Initiated/Reviewed/Updated: Yes - My Orders Last 24 Hours: My Active Orders 04/20/18 09:00 busPIRone [Buspar] 5 mg PO BID 04/20/18 14:00 Acetaminophen [Tylenol Extra Strength] 1,000 mg PO Q8H Gabapentin [Neurontin] 300 mg PO TID 04/21/18 05:11 CBC WITH AUTO DIFF [HEME] AM COMPREHENSIVE METABOLIC PN,CMP [CHEM] AM MG [MAGNESIUM] [CHEM] AM
[2018-04-20] MEDS: Gabapentin 300 MG Cap PO SCH ×2 (14:54→20:51)
[2018-04-20] MEDS: Acetaminophen 500 MG Tab PO SCH ×2 (14:55→21:47)
[2018-04-20] MEDS: Magnesium Oxide 400 MG Tab PO SCH (20:50)
[2018-04-20] MEDS: Simvastatin 20 MG Tab PO SCH (20:53)
[2018-04-21] MEDS: traMADol 50 MG Tab PO PRN ×4 (00:09→18:39)
[2018-04-21] MEDS: Acetaminophen 500 MG Tab PO SCH ×3 (06:24→21:21)
[2018-04-21] MEDS: busPIRone 5 MG Tab PO SCH ×2 (08:12→20:32)
[2018-04-21] MEDS: Losartan 100 MG Tab PO SCH (08:13)
[2018-04-21] MEDS: Saccharomyces Boulardii (Probiotic) 250 MG Cap PO SCH (08:14)
[2018-04-21] MEDS: Folic Acid 0.4 MG Tab PO SCH (08:14)
[2018-04-21] MEDS: Famotidine 20 MG Tab PO SCH (08:16)
[2018-04-21] MEDS: Polyethylene Glycol 3350 Powder 17 GM Packet PO SCH (08:16)
[2018-04-21] MEDS: Gabapentin 300 MG Cap PO SCH ×3 (08:16→20:32)
[2018-04-21] MEDS: Multivitamin Tab PO SCH ×2 (08:17→20:32)
[2018-04-21] MEDS: Cholecalciferol (Vitamin D3) 1,000 Unit Tab PO SCH (08:17)
[2018-04-21] MEDS ORDERED: Warfarin Sliding Scale PO SCH (08:30)
[2018-04-21] MEDS: Warfarin 5 MG Tab PO SCH (16:39)
[2018-04-21] MEDS: Simvastatin 20 MG Tab PO SCH (20:31)
[2018-04-21] MEDS: Magnesium Oxide 400 MG Tab PO SCH (20:32)
[2018-04-22] MEDS: traMADol 50 MG Tab PO PRN ×4 (00:22→18:31)
[2018-04-22] MEDS: Acetaminophen 500 MG Tab PO SCH ×3 (06:16→22:10)
--- NOTE | 2018-04-22 08:01 | PCM.SN ---
- Free Text/Narrative Note: Patient's vital signs and labs reviewed. No concerns today other than a sodium of 125. The patient feels her mental status is better today and family agrees with this. We don't have a previous value. I discussed with the patient stopping her hydrochlorothiazide as this can cause low sodium. She is also on gabapentin and tramadol which can cause low sodium but at this point I don't think they should be stopped given the difficulty we're having with pain management. Patient wondering about a lidocaine patch for her arm pain which is neuropathic and I think that would be an excellent choice. Also could consider Voltaren gel as she got great relief with Celebrex (stopped due to bleeding risk ). Warfarin was restarted today and will be allowed to drift up. She has an appointment with her surgeon on the for follow-up. Spent about 20 minutes with the patient and her family reviewing her labs and current plan of care.
[2018-04-22] MEDS: busPIRone 5 MG Tab PO SCH ×2 (09:17→21:23)
[2018-04-22] MEDS: Pantoprazole 40 MG Tab.CR PO SCH (09:17)
[2018-04-22] MEDS: Losartan 100 MG Tab PO SCH (09:19)
[2018-04-22] MEDS: Saccharomyces Boulardii (Probiotic) 250 MG Cap PO SCH (09:19)
[2018-04-22] MEDS: Folic Acid 0.4 MG Tab PO SCH (09:20)
[2018-04-22] MEDS: Lidocaine 5% 700 MG Patch TOP SCH (09:21)
[2018-04-22] MEDS: Gabapentin 300 MG Cap PO SCH ×3 (09:23→21:23)
[2018-04-22] MEDS: Polyethylene Glycol 3350 Powder 17 GM Packet PO SCH (09:23)
[2018-04-22] MEDS: Multivitamin Tab PO SCH ×2 (09:23→21:22)
[2018-04-22] MEDS: Cholecalciferol (Vitamin D3) 1,000 Unit Tab PO SCH (09:24)
--- NOTE | 2018-04-22 10:38 | PCM.SN ---
- Free Text/Narrative Note: Patient is a 77-year-old female currently on swing bed day #7 post cervical spinal fusion and lumbar fusion. Pain in that right arm and shoulder continues to be a problem. She has not yet tried a lidocaine patch but will today. Sodium was 127 today so improving. Otherwise the patient is doing well, vital signs were stable, blood sugars have been all under 160. Labs this morning were otherwise unremarkable.
[2018-04-22] MEDS: Warfarin 5 MG Tab PO SCH (17:05)
[2018-04-22] MEDS: Magnesium Oxide 400 MG Tab PO SCH (21:05)
[2018-04-22] MEDS: Simvastatin 20 MG Tab PO SCH (21:23)
[2018-04-23] MEDS: traMADol 50 MG Tab PO PRN ×4 (00:25→21:53)
[2018-04-23] MEDS: Acetaminophen 500 MG Tab PO SCH ×3 (06:02→21:53)
[2018-04-23] MEDS ORDERED: Warfarin 2.5 MG Tab PO ONE (08:45)
[2018-04-23] MEDS: Folic Acid 0.4 MG Tab PO SCH (09:32)
[2018-04-23] MEDS: Saccharomyces Boulardii (Probiotic) 250 MG Cap PO SCH (09:32)
[2018-04-23] MEDS: Famotidine 20 MG Tab PO SCH (09:32)
[2018-04-23] MEDS: busPIRone 5 MG Tab PO SCH ×2 (09:32→21:54)
[2018-04-23] MEDS: Cholecalciferol (Vitamin D3) 1,000 Unit Tab PO SCH (09:33)
[2018-04-23] MEDS: Multivitamin Tab PO SCH ×2 (09:33→21:53)
[2018-04-23] MEDS: Polyethylene Glycol 3350 Powder 17 GM Packet PO SCH (09:34)
[2018-04-23] MEDS: Losartan 100 MG Tab PO SCH (09:34)
[2018-04-23] MEDS: Lidocaine 5% 700 MG Patch TOP SCH (09:34)
[2018-04-23] MEDS: Gabapentin 300 MG Cap PO SCH ×3 (09:36→21:53)
[2018-04-23] MEDS: Lidocaine 5% 700 MG Patch TRDERM SCH (11:38)
[2018-04-23] MEDS ORDERED: Warfarin 5 MG, Warfarin 2.5 MG PO ONE ×2 (16:00)
[2018-04-23] MEDS: Magnesium Oxide 400 MG Tab PO SCH (21:53)
[2018-04-23] MEDS: Simvastatin 20 MG Tab PO SCH (21:53)
[2018-04-24] MEDS: traMADol 50 MG Tab PO PRN ×3 (04:59→20:16)
[2018-04-24] MEDS: Acetaminophen 500 MG Tab PO SCH ×3 (06:30→22:11)
[2018-04-24] MEDS: Pantoprazole 40 MG Tab.CR PO SCH (06:30)
[2018-04-24] MEDS: Losartan 100 MG Tab PO SCH (08:22)
[2018-04-24] MEDS: busPIRone 5 MG Tab PO SCH ×2 (08:22→20:16)
[2018-04-24] MEDS: Folic Acid 0.4 MG Tab PO SCH (08:23)
[2018-04-24] MEDS: Saccharomyces Boulardii (Probiotic) 250 MG Cap PO SCH (08:23)
[2018-04-24] MEDS: Lidocaine 5% 700 MG Patch TOP SCH (08:24)
[2018-04-24] MEDS: Lidocaine 5% 700 MG Patch TRDERM SCH (08:24)
[2018-04-24] MEDS: Cholecalciferol (Vitamin D3) 1,000 Unit Tab PO SCH (08:25)
[2018-04-24] MEDS: Multivitamin Tab PO SCH ×2 (08:25→20:16)
[2018-04-24] MEDS: Polyethylene Glycol 3350 Powder 17 GM Packet PO SCH (08:25)
[2018-04-24] MEDS: Gabapentin 300 MG Cap PO SCH ×3 (08:29→20:16)
[2018-04-24] MEDS: Warfarin 5 MG Tab PO SCH (16:30)
[2018-04-24] MEDS: Magnesium Oxide 400 MG Tab PO SCH (20:16)
[2018-04-24] MEDS: Simvastatin 20 MG Tab PO SCH (20:16)
[2018-04-25] MEDS: traMADol 50 MG Tab PO PRN ×2 (01:01→20:13)
[2018-04-25] MEDS: Acetaminophen 500 MG Tab PO SCH ×3 (06:14→22:13)
[2018-04-25] MEDS: EXENATIDE MICROSPHERES 2 MG SQ SCH (08:16)
[2018-04-25] MEDS: busPIRone 5 MG Tab PO SCH ×2 (08:17→20:05)
[2018-04-25] MEDS: Losartan 100 MG Tab PO SCH (08:17)
[2018-04-25] MEDS: Saccharomyces Boulardii (Probiotic) 250 MG Cap PO SCH (08:20)
[2018-04-25] MEDS: Folic Acid 0.4 MG Tab PO SCH (08:21)
[2018-04-25] MEDS: Lidocaine 5% 700 MG Patch TOP SCH (08:22)
[2018-04-25] MEDS: Lidocaine 5% 700 MG Patch TRDERM SCH (08:23)
[2018-04-25] MEDS: Polyethylene Glycol 3350 Powder 17 GM Packet PO SCH (08:23)
[2018-04-25] MEDS: Famotidine 20 MG Tab PO SCH (08:24)
[2018-04-25] MEDS: amLODIPine 5 MG Tab PO SCH (08:24)
[2018-04-25] MEDS: Cholecalciferol (Vitamin D3) 1,000 Unit Tab PO SCH (08:25)
[2018-04-25] MEDS: Multivitamin Tab PO SCH ×2 (08:25→20:06)
[2018-04-25] MEDS: Gabapentin 300 MG Cap PO SCH ×3 (08:34→20:06)
[2018-04-25] MEDS: Warfarin 5 MG Tab PO SCH (15:33)
[2018-04-25] MEDS: Magnesium Oxide 400 MG Tab PO SCH (20:05)
[2018-04-25] MEDS: Simvastatin 20 MG Tab PO SCH (20:06)
[2018-04-26] MEDS: traMADol 50 MG Tab PO PRN ×3 (01:51→14:37)
[2018-04-26] MEDS: Acetaminophen 500 MG Tab PO SCH ×3 (06:15→21:07)
[2018-04-26] MEDS: Pantoprazole 40 MG Tab.CR PO SCH (06:58)
[2018-04-26] MEDS: Losartan 100 MG Tab PO SCH (08:24)
[2018-04-26] MEDS: Saccharomyces Boulardii (Probiotic) 250 MG Cap PO SCH (08:24)
[2018-04-26] MEDS: Folic Acid 0.4 MG Tab PO SCH (08:24)
[2018-04-26] MEDS: busPIRone 10 MG Tab PO SCH ×2 (08:27→21:07)
[2018-04-26] MEDS: Lidocaine 5% 700 MG Patch TRDERM SCH ×2 (08:28→21:07)
[2018-04-26] MEDS: Lidocaine 5% 700 MG Patch TOP SCH ×2 (08:28→21:07)
[2018-04-26] MEDS: amLODIPine 5 MG Tab PO SCH (08:29)
[2018-04-26] MEDS: Multivitamin Tab PO SCH ×2 (08:29→21:07)
[2018-04-26] MEDS: Polyethylene Glycol 3350 Powder 17 GM Packet PO SCH (08:29)
[2018-04-26] MEDS: Cholecalciferol (Vitamin D3) 1,000 Unit Tab PO SCH (08:29)
[2018-04-26] MEDS: Gabapentin 300 MG Cap PO SCH ×3 (08:35→21:07)
[2018-04-26] MEDS: Warfarin 5 MG Tab PO SCH (15:32)
[2018-04-26] MEDS: Magnesium Oxide 400 MG Tab PO SCH (21:07)
[2018-04-26] MEDS: Simvastatin 20 MG Tab PO SCH (21:07)
[2018-04-27] MEDS: traMADol 50 MG Tab PO PRN ×3 (01:45→21:16)
[2018-04-27] MEDS: Acetaminophen 500 MG Tab PO SCH ×3 (06:38→21:02)
[2018-04-27] MEDS: Losartan 100 MG Tab PO SCH (08:49)
[2018-04-27] MEDS: busPIRone 10 MG Tab PO SCH ×2 (08:49→21:02)
[2018-04-27] MEDS: Polyethylene Glycol 3350 Powder 17 GM Packet PO SCH (08:50)
[2018-04-27] MEDS: Folic Acid 0.4 MG Tab PO SCH (08:50)
[2018-04-27] MEDS: Saccharomyces Boulardii (Probiotic) 250 MG Cap PO SCH (08:50)
[2018-04-27] MEDS: Gabapentin 300 MG Cap PO SCH ×3 (08:51→21:03)
[2018-04-27] MEDS: amLODIPine 5 MG Tab PO SCH (08:51)
[2018-04-27] MEDS: Multivitamin Tab PO SCH ×2 (08:51→21:02)
[2018-04-27] MEDS: Famotidine 20 MG Tab PO SCH (08:51)
[2018-04-27] MEDS: Cholecalciferol (Vitamin D3) 1,000 Unit Tab PO SCH (08:52)
[2018-04-27] MEDS: Warfarin 5 MG Tab PO SCH (17:21)
[2018-04-27] MEDS: Lidocaine 5% 700 MG Patch TRDERM SCH (21:00)
[2018-04-27] MEDS: Lidocaine 5% 700 MG Patch TOP SCH (21:01)
[2018-04-27] MEDS: Simvastatin 20 MG Tab PO SCH (21:02)
[2018-04-27] MEDS: Magnesium Oxide 400 MG Tab PO SCH (21:03)
[2018-04-28] MEDS: Acetaminophen 500 MG Tab PO SCH ×3 (05:20→21:07)
[2018-04-28] MEDS: Pantoprazole 40 MG Tab.CR PO SCH ×2 (05:20→07:23)
[2018-04-28] MEDS: Folic Acid 0.4 MG Tab PO SCH (09:21)
[2018-04-28] MEDS: Cholecalciferol (Vitamin D3) 1,000 Unit Tab PO SCH (09:22)
[2018-04-28] MEDS: Losartan 100 MG Tab PO SCH (09:22)
[2018-04-28] MEDS: amLODIPine 5 MG Tab PO SCH (09:22)
[2018-04-28] MEDS: Multivitamin Tab PO SCH ×2 (09:22→21:06)
[2018-04-28] MEDS: busPIRone 10 MG Tab PO SCH ×2 (09:22→21:05)
[2018-04-28] MEDS: Saccharomyces Boulardii (Probiotic) 250 MG Cap PO SCH (09:22)
[2018-04-28] MEDS: Polyethylene Glycol 3350 Powder 17 GM Packet PO SCH (09:23)
[2018-04-28] MEDS: Gabapentin 300 MG Cap PO SCH ×3 (09:23→21:05)
[2018-04-28] MEDS: traMADol 50 MG Tab PO PRN ×2 (14:15→21:05)
[2018-04-28] MEDS: Warfarin 5 MG Tab PO SCH (16:06)
[2018-04-28] MEDS: Simvastatin 20 MG Tab PO SCH (21:06)
[2018-04-28] MEDS: Magnesium Oxide 400 MG Tab PO SCH (21:06)
[2018-04-28] MEDS: Lidocaine 5% 700 MG Patch TOP SCH (21:07)
[2018-04-28] MEDS: Lidocaine 5% 700 MG Patch TRDERM SCH (21:08)
[2018-04-29] MEDS: traMADol 50 MG Tab PO PRN ×2 (03:08→09:43)
[2018-04-29] MEDS: Acetaminophen 500 MG Tab PO SCH ×3 (06:01→21:57)
[2018-04-29] MEDS: Gabapentin 300 MG Cap PO SCH ×3 (08:12→20:10)
[2018-04-29] MEDS: Folic Acid 0.4 MG Tab PO SCH (08:13)
[2018-04-29] MEDS: busPIRone 10 MG Tab PO SCH ×2 (08:13→20:08)
[2018-04-29] MEDS: Multivitamin Tab PO SCH ×2 (08:14→20:11)
[2018-04-29] MEDS: amLODIPine 5 MG Tab PO SCH (08:16)
[2018-04-29] MEDS: Cholecalciferol (Vitamin D3) 1,000 Unit Tab PO SCH (08:17)
[2018-04-29] MEDS: Losartan 100 MG Tab PO SCH (08:17)
[2018-04-29] MEDS: Saccharomyces Boulardii (Probiotic) 250 MG Cap PO SCH (08:17)
[2018-04-29] MEDS: Famotidine 20 MG Tab PO SCH (08:18)
[2018-04-29] MEDS: Polyethylene Glycol 3350 Powder 17 GM Packet PO SCH (08:18)
[2018-04-29] MEDS: Warfarin 5 MG Tab PO SCH (16:33)
[2018-04-29] MEDS: Lidocaine 5% 700 MG Patch TOP SCH (20:08)
[2018-04-29] MEDS: Magnesium Oxide 400 MG Tab PO SCH (20:10)
[2018-04-29] MEDS: Simvastatin 20 MG Tab PO SCH (20:11)
[2018-04-29] MEDS: Lidocaine 5% 700 MG Patch TRDERM SCH (20:12)
[2018-04-30] MEDS: traMADol 50 MG Tab PO PRN ×2 (04:13→21:56)
[2018-04-30] MEDS: Pantoprazole 40 MG Tab.CR PO SCH (06:09)
[2018-04-30] MEDS: Acetaminophen 500 MG Tab PO SCH ×3 (06:09→21:30)
[2018-04-30] MEDS: Losartan 100 MG Tab PO SCH (08:35)
[2018-04-30] MEDS: busPIRone 10 MG Tab PO SCH ×2 (08:35→20:21)
[2018-04-30] MEDS: Saccharomyces Boulardii (Probiotic) 250 MG Cap PO SCH (08:36)
[2018-04-30] MEDS: amLODIPine 5 MG Tab PO SCH (08:36)
[2018-04-30] MEDS: Folic Acid 0.4 MG Tab PO SCH (08:36)
[2018-04-30] MEDS: Multivitamin Tab PO SCH ×2 (08:37→20:23)
[2018-04-30] MEDS: Cholecalciferol (Vitamin D3) 1,000 Unit Tab PO SCH (08:37)
[2018-04-30] MEDS: Polyethylene Glycol 3350 Powder 17 GM Packet PO SCH (08:39)
[2018-04-30] MEDS: Gabapentin 300 MG Cap PO SCH ×3 (08:43→20:27)
[2018-04-30] MEDS: Warfarin 5 MG Tab PO SCH (15:20)
[2018-04-30] MEDS: Lidocaine 5% 700 MG Patch TOP SCH (20:21)
[2018-04-30] MEDS: Lidocaine 5% 700 MG Patch TRDERM SCH (20:22)
[2018-04-30] MEDS: Magnesium Oxide 400 MG Tab PO SCH (20:23)
[2018-04-30] MEDS: Simvastatin 20 MG Tab PO SCH (20:24)
[2018-05-01] MEDS: traMADol 50 MG Tab PO PRN ×2 (04:13→18:52)
[2018-05-01] MEDS: Acetaminophen 500 MG Tab PO SCH ×3 (06:09→21:23)
[2018-05-01] MEDS: busPIRone 10 MG Tab PO SCH ×2 (08:21→20:21)
[2018-05-01] MEDS: Losartan 100 MG Tab PO SCH (08:22)
[2018-05-01] MEDS: Folic Acid 0.4 MG Tab PO SCH (08:22)
[2018-05-01] MEDS: Saccharomyces Boulardii (Probiotic) 250 MG Cap PO SCH (08:22)
[2018-05-01] MEDS: Polyethylene Glycol 3350 Powder 17 GM Packet PO SCH (08:23)
[2018-05-01] MEDS: Famotidine 20 MG Tab PO SCH (08:24)
[2018-05-01] MEDS: amLODIPine 5 MG Tab PO SCH (08:24)
[2018-05-01] MEDS: Multivitamin Tab PO SCH ×2 (08:24→20:21)
[2018-05-01] MEDS: Gabapentin 300 MG Cap PO SCH ×3 (08:24→20:23)
[2018-05-01] MEDS: Cholecalciferol (Vitamin D3) 1,000 Unit Tab PO SCH (08:24)
[2018-05-01] MEDS ORDERED: Naproxen 500 MG Tab PO SCH (17:15)
[2018-05-01] MEDS ORDERED: traMADol 50 MG Tab PO SCH ×3 (18:30→21:00)
[2018-05-01] MEDS: Magnesium Oxide 400 MG Tab PO SCH (20:20)
[2018-05-01] MEDS: Simvastatin 20 MG Tab PO SCH (20:21)
[2018-05-01] MEDS: Lidocaine 5% 700 MG Patch TOP SCH (20:23)
[2018-05-01] MEDS: Lidocaine 5% 700 MG Patch TRDERM SCH (20:24)
[2018-05-01] MEDS: Melatonin 3 MG Tab PO SCH (20:28)
[2018-05-02] MEDS: traMADol 50 MG Tab PO PRN ×3 (04:09→20:43)
[2018-05-02] MEDS: Acetaminophen 500 MG Tab PO SCH ×3 (05:11→22:00)
[2018-05-02] MEDS: Pantoprazole 40 MG Tab.CR PO SCH ×2 (05:14→06:53)
[2018-05-02] MEDS: Polyethylene Glycol 3350 Powder 17 GM Packet PO SCH (08:00)
[2018-05-02] MEDS: amLODIPine 5 MG Tab PO SCH (08:03)
[2018-05-02] MEDS: Folic Acid 0.4 MG Tab PO SCH (08:03)
[2018-05-02] MEDS: Saccharomyces Boulardii (Probiotic) 250 MG Cap PO SCH (08:03)
[2018-05-02] MEDS: Losartan 100 MG Tab PO SCH (08:03)
[2018-05-02] MEDS: Cholecalciferol (Vitamin D3) 1,000 Unit Tab PO SCH (08:04)
[2018-05-02] MEDS: Multivitamin Tab PO SCH ×2 (08:04→20:39)
[2018-05-02] MEDS: busPIRone 10 MG Tab PO SCH ×2 (08:04→20:39)
[2018-05-02] MEDS: Gabapentin 300 MG Cap PO SCH ×3 (08:27→21:19)
[2018-05-02] MEDS: EXENATIDE MICROSPHERES 2 MG SQ SCH (13:11)
[2018-05-02] MEDS: Warfarin 5 MG Tab PO SCH (17:30)
[2018-05-02] MEDS: Magnesium Oxide 400 MG Tab PO SCH (20:39)
[2018-05-02] MEDS: Melatonin 3 MG Tab PO SCH (20:40)
[2018-05-02] MEDS: Lidocaine 5% 700 MG Patch TRDERM SCH ×2 (20:41→20:43)
[2018-05-02] MEDS: Simvastatin 20 MG Tab PO SCH (20:45)
[2018-05-03] MEDS: Acetaminophen 500 MG Tab PO SCH ×3 (06:59→22:00)
[2018-05-03] MEDS: traMADol 50 MG Tab PO PRN ×2 (07:01→15:48)
[2018-05-03] MEDS: busPIRone 10 MG Tab PO SCH ×2 (08:21→21:14)
[2018-05-03] MEDS: Losartan 100 MG Tab PO SCH (08:22)
[2018-05-03] MEDS: Saccharomyces Boulardii (Probiotic) 250 MG Cap PO SCH (08:22)
[2018-05-03] MEDS: Folic Acid 0.4 MG Tab PO SCH (08:22)
[2018-05-03] MEDS: Famotidine 20 MG Tab PO SCH (08:23)
[2018-05-03] MEDS: Gabapentin 300 MG Cap PO SCH ×3 (08:23→21:16)
[2018-05-03] MEDS: Lidocaine 5% 700 MG Patch TOP SCH (08:23)
[2018-05-03] MEDS: Polyethylene Glycol 3350 Powder 17 GM Packet PO SCH (08:23)
[2018-05-03] MEDS: amLODIPine 5 MG Tab PO SCH (08:23)
[2018-05-03] MEDS: Cholecalciferol (Vitamin D3) 1,000 Unit Tab PO SCH (08:24)
[2018-05-03] MEDS: Multivitamin Tab PO SCH ×2 (08:24→21:16)
[2018-05-03] MEDS ORDERED: Warfarin 2.5 MG Tab PO SCH (16:00)
[2018-05-03] MEDS ORDERED: traMADol 50 MG Tab PO PRN (20:09)
[2018-05-03] MEDS: Magnesium Oxide 400 MG Tab PO SCH (21:14)
[2018-05-03] MEDS: Melatonin 3 MG Tab PO SCH (21:15)
[2018-05-03] MEDS: traMADol 50 MG Tab PO SCH (21:16)
[2018-05-03] MEDS: Simvastatin 20 MG Tab PO SCH (21:18)
[2018-05-03] MEDS: Lidocaine 5% 700 MG Patch TRDERM SCH (21:21)
[2018-05-04] MEDS: Acetaminophen 500 MG Tab PO SCH ×3 (06:30→21:30)
[2018-05-04] MEDS: Pantoprazole 40 MG Tab.CR PO SCH (06:30)
[2018-05-04] MEDS: Polyethylene Glycol 3350 Powder 17 GM Packet PO SCH (08:56)
[2018-05-04] MEDS: busPIRone 10 MG Tab PO SCH ×2 (08:57→21:30)
[2018-05-04] MEDS: Saccharomyces Boulardii (Probiotic) 250 MG Cap PO SCH (08:58)
[2018-05-04] MEDS: Folic Acid 0.4 MG Tab PO SCH (08:58)
[2018-05-04] MEDS: Losartan 100 MG Tab PO SCH (08:58)
[2018-05-04] MEDS: Multivitamin Tab PO SCH ×2 (09:02→21:30)
[2018-05-04] MEDS: Cholecalciferol (Vitamin D3) 1,000 Unit Tab PO SCH (09:02)
[2018-05-04] MEDS: amLODIPine 5 MG Tab PO SCH (09:02)
[2018-05-04] MEDS: Gabapentin 300 MG Cap PO SCH ×3 (09:02→21:30)
[2018-05-04] MEDS: traMADol 50 MG Tab PO PRN (09:03)
[2018-05-04] MEDS: Lidocaine 5% 700 MG Patch TOP SCH (09:07)
--- NOTE | 2018-05-04 13:07 | PN ---
DATE SEEN: 05/04/2018 SUBJECTIVE: Eugenie Chase is a delightful 77-year-old, female, in swing bed. She had a complicated first cervical and then lumbar back surgery. Has been at [facility] since 04/16/17. Lengthy stay suspected. Pain appears to be well controlled. Stooling with good success. Sugars have been satisfactory and within good goals. INR has been therapeutic. Sleep has been a bit impaired, but much better last evening due to 2 Ultram at bedtime. MEDICATIONS: On board include maintenance medications of: 1. Amlodipine. 2. BuSpar. 3. Pepcid. 4. Folic acid. 5. Neurontin. 6. Lidoderm patch. 7. Losartan. 8. Lutein. 9. Magnesium hydroxide. 10.Melatonin. 11.Bydureon. 12.Protonix. 13.MiraLAX. 14.Simvastatin. 15.Ultram primarily given at bedtime, and p.r.n. during the day. 16.Coumadin on board as directed. OBJECTIVE: VITAL SIGNS: 36.3, 72, 137/67, 18, 98 on room air. GENERAL: Appears comfortable. Trach collar in place. NECK: Benign as palpated. CHEST: Clear all lung boyd. HEART: No ectopy or murmur. ABDOMEN: Benign. ASSESSMENT: Postoperative care cervical lumbar surgery. PLAN: Medications, care and treatment appropriate, diabetes well controlled. Pain control and intervention. Lengthy stay expected. /[id number] 1221 GRICELDA/GINA
[2018-05-04] MEDS: Warfarin 5 MG Tab PO SCH (15:29)
[2018-05-04] MEDS: Lidocaine 5% 700 MG Patch TRDERM SCH (21:30)
[2018-05-04] MEDS: Simvastatin 20 MG Tab PO SCH (21:30)
[2018-05-04] MEDS: traMADol 50 MG Tab PO SCH (21:30)
[2018-05-04] MEDS: Magnesium Oxide 400 MG Tab PO SCH (21:30)
[2018-05-04] MEDS: Melatonin 3 MG Tab PO SCH (21:30)
[2018-05-05] MEDS: Acetaminophen 500 MG Tab PO SCH ×3 (06:36→21:43)
[2018-05-05] MEDS: busPIRone 10 MG Tab PO SCH ×2 (09:24→21:41)
[2018-05-05] MEDS: Losartan 100 MG Tab PO SCH (09:24)
[2018-05-05] MEDS: Saccharomyces Boulardii (Probiotic) 250 MG Cap PO SCH (09:25)
[2018-05-05] MEDS: Folic Acid 0.4 MG Tab PO SCH (09:26)
[2018-05-05] MEDS: Polyethylene Glycol 3350 Powder 17 GM Packet PO SCH (09:27)
[2018-05-05] MEDS: amLODIPine 5 MG Tab PO SCH (09:27)
[2018-05-05] MEDS: Gabapentin 300 MG Cap PO SCH ×3 (09:27→21:39)
[2018-05-05] MEDS: Multivitamin Tab PO SCH ×2 (09:28→21:43)
[2018-05-05] MEDS: Famotidine 20 MG Tab PO SCH (09:28)
[2018-05-05] MEDS: Cholecalciferol (Vitamin D3) 1,000 Unit Tab PO SCH (09:28)
[2018-05-05] MEDS: traMADol 50 MG Tab PO PRN (09:29)
[2018-05-05] MEDS: Lidocaine 5% 700 MG Patch TOP SCH (09:32)
--- NOTE | 2018-05-05 10:14 | PN ---
DATE SEEN: 05/05/2018 SUBJECTIVE: Eugenie Chase is a delightful 77-year-old female, seen today for review. Swing bed since 04/16, complicated cervical and lumbar back surgery. Making good progress. INR satisfactory. Sugars have been satisfactory. Two Ultram at bedtime complementary. PHYSICAL EXAMINATION: VITAL SIGNS: 166/63, 18, 98 O2 saturation, pulse 72, 36.3. GENERAL: Surgical wound, neck was reviewed as best, could see with collar in place. Healing well. CHEST: Clear in all lung boyd. HEART: No ectopy or significant murmur. ABDOMEN: Benign. SCARS: Surgical scars, back intact. ASSESSMENT: Postoperative cervical and lumbar surgery. PLAN: Medications, care and treatment appropriate, all complementary. Proceed accordingly. /[id number] 1007 GRICELDA/GINA
[2018-05-05] MEDS: Warfarin 5 MG Tab PO SCH (15:45)
[2018-05-05] MEDS: traMADol 50 MG Tab PO SCH (21:39)
[2018-05-05] MEDS: Lidocaine 5% 700 MG Patch TRDERM SCH (21:41)
[2018-05-05] MEDS: Magnesium Oxide 400 MG Tab PO SCH (21:42)
[2018-05-05] MEDS: Melatonin 3 MG Tab PO SCH (21:42)
[2018-05-05] MEDS: Simvastatin 20 MG Tab PO SCH (21:43)
[2018-05-06] MEDS: Acetaminophen 500 MG Tab PO SCH ×3 (06:16→21:28)
[2018-05-06] MEDS: Pantoprazole 40 MG Tab.CR PO SCH (07:41)
[2018-05-06] MEDS: busPIRone 10 MG Tab PO SCH ×2 (09:26→21:26)
[2018-05-06] MEDS: Losartan 100 MG Tab PO SCH (09:27)
[2018-05-06] MEDS: Saccharomyces Boulardii (Probiotic) 250 MG Cap PO SCH (09:28)
[2018-05-06] MEDS: Folic Acid 0.4 MG Tab PO SCH (09:29)
[2018-05-06] MEDS: Polyethylene Glycol 3350 Powder 17 GM Packet PO SCH (09:29)
[2018-05-06] MEDS: amLODIPine 5 MG Tab PO SCH (09:30)
[2018-05-06] MEDS: Gabapentin 300 MG Cap PO SCH ×3 (09:30→21:25)
[2018-05-06] MEDS: Multivitamin Tab PO SCH ×2 (09:31→21:26)
[2018-05-06] MEDS: Cholecalciferol (Vitamin D3) 1,000 Unit Tab PO SCH (09:31)
[2018-05-06] MEDS: traMADol 50 MG Tab PO PRN (09:32)
[2018-05-06] MEDS: Lidocaine 5% 700 MG Patch TOP SCH (09:34)
--- NOTE | 2018-05-06 10:10 | PN ---
DATE SEEN: 05/06/2018 SUBJECTIVE: Eugenie Chase is a 77-year-old, female, in swing bed. Long-term course rehab, previous lumbar back surgery, cervical disk surgery. Making good progress. Ambulation skills are improving. Analgesics, comfortable, and without conflict. LABORATORY STUDIES: Glucose of 100. INR on 05/05/2018, 2.45; on 05/03/2018, 2.0. PHYSICAL EXAMINATION: VITAL SIGNS: Stable. 143/62, 16, 98, 36.3. GENERAL: Appears comfortable. NECK: Surgical wound right side. Left side intact. Neck otherwise benign. CHEST: Clear in all lung boyd. HEART: No ectopy or murmur. ABDOMEN: Benign. Surgical scar back healed. ASSESSMENT: Postoperative care, cervical disk surgery, lumbar surgery. PLAN: Medications, care and treatment appropriate, pain controlled, Coumadin on board. /[id number] 0950 1002 GRICELDA/GINA
[2018-05-06] MEDS: Warfarin 5 MG Tab PO SCH (15:33)
[2018-05-06] MEDS: traMADol 50 MG Tab PO SCH (21:24)
[2018-05-06] MEDS: Magnesium Oxide 400 MG Tab PO SCH (21:25)
[2018-05-06] MEDS: Melatonin 3 MG Tab PO SCH (21:26)
[2018-05-06] MEDS: Lidocaine 5% 700 MG Patch TRDERM SCH (21:27)
[2018-05-06] MEDS: Simvastatin 20 MG Tab PO SCH (21:27)
[2018-05-07] MEDS: Acetaminophen 500 MG Tab PO SCH ×3 (06:09→21:07)
[2018-05-07] MEDS: busPIRone 10 MG Tab PO SCH ×2 (08:44→21:04)
[2018-05-07] MEDS: Losartan 100 MG Tab PO SCH (08:44)
[2018-05-07] MEDS: Saccharomyces Boulardii (Probiotic) 250 MG Cap PO SCH (08:44)
[2018-05-07] MEDS: Lidocaine 5% 700 MG Patch TOP SCH (08:45)
[2018-05-07] MEDS: Folic Acid 0.4 MG Tab PO SCH (08:45)
[2018-05-07] MEDS: Famotidine 20 MG Tab PO SCH (08:46)
[2018-05-07] MEDS: Gabapentin 300 MG Cap PO SCH ×3 (08:46→21:05)
[2018-05-07] MEDS: Polyethylene Glycol 3350 Powder 17 GM Packet PO SCH (08:46)
[2018-05-07] MEDS: amLODIPine 5 MG Tab PO SCH (08:46)
[2018-05-07] MEDS: Multivitamin Tab PO SCH ×2 (08:47→21:06)
[2018-05-07] MEDS: Cholecalciferol (Vitamin D3) 1,000 Unit Tab PO SCH (08:47)
--- NOTE | 2018-05-07 10:50 | PN ---
DATE SEEN: 05/07/2018 SUBJECTIVE: Eugenie Chase is a 77-year-old female, in rehab. Complicated cervical and lumbar back surgery. Progress has been predictable. There have been no complicating issue. Meeting for duration of care under review. LABORATORY STUDIES: INR 3.69. Coumadin will be held. OBJECTIVE: VITAL SIGNS: Stable. GENERAL: Appears comfortable. Speech was fluent. NECK: Surgical wound, left neck and lower back, intact. CHEST: Clear. HEART: Regular. ASSESSMENT: Postoperative care, cervical lumbar surgery. PLAN: Medications on board, treatment in place, doing well. Pain controlled. /[id number] 1045 /GINA
[2018-05-07] MEDS: Lidocaine 5% 700 MG Patch TRDERM SCH (21:04)
[2018-05-07] MEDS: Melatonin 3 MG Tab PO SCH (21:05)
[2018-05-07] MEDS: Magnesium Oxide 400 MG Tab PO SCH (21:05)
[2018-05-07] MEDS: Simvastatin 20 MG Tab PO SCH (21:06)
[2018-05-07] MEDS: traMADol 50 MG Tab PO SCH (21:06)
[2018-05-08] MEDS: Pantoprazole 40 MG Tab.CR PO SCH (05:54)
[2018-05-08] MEDS: Acetaminophen 500 MG Tab PO SCH ×3 (05:54→21:33)
[2018-05-08] MEDS: busPIRone 10 MG Tab PO SCH ×2 (09:20→21:32)
[2018-05-08] MEDS: Losartan 100 MG Tab PO SCH (09:20)
[2018-05-08] MEDS: Saccharomyces Boulardii (Probiotic) 250 MG Cap PO SCH (09:21)
[2018-05-08] MEDS: Folic Acid 0.4 MG Tab PO SCH (09:21)
[2018-05-08] MEDS: Lidocaine 5% 700 MG Patch TOP SCH (09:22)
[2018-05-08] MEDS: amLODIPine 5 MG Tab PO SCH (09:23)
[2018-05-08] MEDS: Polyethylene Glycol 3350 Powder 17 GM Packet PO SCH (09:23)
[2018-05-08] MEDS: Cholecalciferol (Vitamin D3) 1,000 Unit Tab PO SCH (09:24)
[2018-05-08] MEDS: Multivitamin Tab PO SCH ×2 (09:24→21:33)
[2018-05-08] MEDS: Gabapentin 300 MG Cap PO SCH ×3 (09:27→21:35)
--- NOTE | 2018-05-08 10:55 | PN ---
DATE SEEN: 05/08/2018 SUBJECTIVE: Eugenie Chase is a 77-year-old female presently in swing bed. Underwent complicated lumbar and cervical disk surgery. Improvements continue. Walking better with success. Strength is improving. She has an appointment in [place] with her neurosurgeon. Son and are traveling; weather should be good. We will send some notes along for their observations. LABORATORY DATA: Outstanding laboratory: Glucose 99, 93. INR pending. OBJECTIVE: VITAL SIGNS: 36.4, 135/61, mean of 85, 18 respirations, 98% sat. GENERAL: Always in good spirits. NECK: Benign. Surgical site viewed and intact. CHEST: Clear in all lung boyd. No adventitious sounds. HEART: Distant heart sounds. Occasional ectopy. EXTREMITIES: Minimal edema. ASSESSMENT: Status post cervical and lumbar disk surgery. PLAN: Rehab intervention upcoming plan. /[id number] 0950 /GINA
[2018-05-08] MEDS ORDERED: Warfarin 2.5 MG Tab PO ONE (16:00)
[2018-05-08] MEDS: Lidocaine 5% 700 MG Patch TRDERM SCH (21:32)
[2018-05-08] MEDS: Magnesium Oxide 400 MG Tab PO SCH (21:32)
[2018-05-08] MEDS: Simvastatin 20 MG Tab PO SCH (21:33)
[2018-05-08] MEDS: Melatonin 3 MG Tab PO SCH (21:33)
[2018-05-08] MEDS: traMADol 50 MG Tab PO SCH (21:36)
[2018-05-09] MEDS: Acetaminophen 500 MG Tab PO SCH ×4 (05:40→21:10)
[2018-05-09] MEDS: Polyethylene Glycol 3350 Powder 17 GM Packet PO SCH (08:55)
[2018-05-09] MEDS: busPIRone 10 MG Tab PO SCH ×2 (08:57→20:34)
[2018-05-09] MEDS: Losartan 100 MG Tab PO SCH (08:59)
[2018-05-09] MEDS: Saccharomyces Boulardii (Probiotic) 250 MG Cap PO SCH (08:59)
[2018-05-09] MEDS: Folic Acid 0.4 MG Tab PO SCH (08:59)
[2018-05-09] MEDS: Lidocaine 5% 700 MG Patch TOP SCH (09:01)
[2018-05-09] MEDS: amLODIPine 5 MG Tab PO SCH (09:04)
[2018-05-09] MEDS: Gabapentin 300 MG Cap PO SCH ×3 (09:04→20:40)
[2018-05-09] MEDS: Famotidine 20 MG Tab PO SCH (09:05)
[2018-05-09] MEDS: Cholecalciferol (Vitamin D3) 1,000 Unit Tab PO SCH (09:06)
[2018-05-09] MEDS: Multivitamin Tab PO SCH ×2 (09:06→20:41)
--- NOTE | 2018-05-09 12:49 | PN ---
DATE SEEN: 05/09/2018 SUBJECTIVE: Eugenie Chase is a delightful 77-year-old female in swing bed. Saw her neurosurgeon, Guanaco Higuera, in [place] yesterday. Apparently, has a screw loose in one of her cervical plate devices. Encouraged not to do any upper extremity exercises other than routine daily cares. Otherwise good. PT actively involved, no intervention of consequence. OBJECTIVE: VITAL SIGNS: Have been stable. LUNGS: Clear. HEART: Regular. GASTROINTESTINAL: Stooling comfortably. ASSESSMENT: Swing bed stay. PLAN: Medications, care, and treatment appropriate. /[id number] 1236 GRICELDA/GINA
[2018-05-09] MEDS: EXENATIDE MICROSPHERES 2 MG SQ SCH (14:45)
[2018-05-09] MEDS ORDERED: Warfarin 5 MG Tab PO SCH (16:00)
[2018-05-09] MEDS: Lidocaine 5% 700 MG Patch TRDERM SCH (20:38)
[2018-05-09] MEDS: Magnesium Oxide 400 MG Tab PO SCH (20:40)
[2018-05-09] MEDS: Melatonin 3 MG Tab PO SCH (20:40)
[2018-05-09] MEDS: traMADol 50 MG Tab PO SCH (20:41)
[2018-05-09] MEDS: Simvastatin 20 MG Tab PO SCH (20:41)
[2018-05-10] MEDS: traMADol 50 MG Tab PO PRN (02:10)
[2018-05-10] MEDS: Acetaminophen 500 MG Tab PO SCH ×3 (05:55→21:01)
[2018-05-10] MEDS: Pantoprazole 40 MG Tab.CR PO SCH (05:55)
[2018-05-10] MEDS: busPIRone 10 MG Tab PO SCH ×2 (09:28→20:56)
[2018-05-10] MEDS: Saccharomyces Boulardii (Probiotic) 250 MG Cap PO SCH (09:28)
[2018-05-10] MEDS: Losartan 100 MG Tab PO SCH (09:28)
[2018-05-10] MEDS: Folic Acid 0.4 MG Tab PO SCH (09:29)
[2018-05-10] MEDS: Polyethylene Glycol 3350 Powder 17 GM Packet PO SCH (09:30)
[2018-05-10] MEDS: amLODIPine 5 MG Tab PO SCH (09:30)
[2018-05-10] MEDS: Multivitamin Tab PO SCH ×2 (09:31→20:57)
[2018-05-10] MEDS: Cholecalciferol (Vitamin D3) 1,000 Unit Tab PO SCH (09:31)
[2018-05-10] MEDS: Gabapentin 300 MG Cap PO SCH ×3 (09:33→21:01)
[2018-05-10] MEDS: Lidocaine 5% 700 MG Patch TOP SCH (09:35)
--- NOTE | 2018-05-10 11:31 | PN ---
DATE SEEN: 05/10/2018 SUBJECTIVE: Eugenie Chase is a 77-year-old female seen today for review. In swing bed for post cervical and lumbar surgery. Recent visit with Neurosurgery in [place]. Was encouraged to limit use of overhead as a tiny screw which is not well fixated in the left neck. Otherwise doing well. Ambulation skills are better. Anxious to continue treatment. Outstanding laboratory studies, none. Medications reviewed. OBJECTIVE: VITAL SIGNS: 36.8, 142/65, 95 mean blood pressure, respirations 16, and O2 saturation 100%. GENERAL: Comfortable and conversant. NECK: Collar in place. CHEST: Clear in all lung boyd. HEART: No ectopy or murmur. ABDOMEN: Benign. ASSESSMENT: Postoperative care, cervical-lumbar surgery. PLAN: On board with treatment. /[id number] 1107 /GINA
[2018-05-10] MEDS ORDERED: Warfarin 5 MG Tab PO SCH (16:00)
[2018-05-10] MEDS: Lidocaine 5% 700 MG Patch TRDERM SCH (20:56)
[2018-05-10] MEDS: Magnesium Oxide 400 MG Tab PO SCH (20:57)
[2018-05-10] MEDS: Simvastatin 20 MG Tab PO SCH (20:57)
[2018-05-10] MEDS: Melatonin 3 MG Tab PO SCH (20:57)
[2018-05-10] MEDS: traMADol 50 MG Tab PO SCH (21:01)
[2018-05-11] MEDS: Acetaminophen 500 MG Tab PO SCH ×3 (06:47→21:21)
[2018-05-11] MEDS: busPIRone 10 MG Tab PO SCH ×2 (08:27→20:03)
[2018-05-11] MEDS: Saccharomyces Boulardii (Probiotic) 250 MG Cap PO SCH (08:28)
[2018-05-11] MEDS: Losartan 100 MG Tab PO SCH (08:28)
[2018-05-11] MEDS: Folic Acid 0.4 MG Tab PO SCH (08:28)
[2018-05-11] MEDS: Lidocaine 5% 700 MG Patch TOP SCH (08:29)
[2018-05-11] MEDS: Gabapentin 300 MG Cap PO SCH ×3 (08:30→20:05)
[2018-05-11] MEDS: Polyethylene Glycol 3350 Powder 17 GM Packet PO SCH (08:30)
[2018-05-11] MEDS: amLODIPine 5 MG Tab PO SCH (08:30)
[2018-05-11] MEDS: Famotidine 20 MG Tab PO SCH (08:31)
[2018-05-11] MEDS: Multivitamin Tab PO SCH ×2 (08:31→20:06)
[2018-05-11] MEDS: traMADol 50 MG Tab PO PRN ×2 (08:32→14:50)
[2018-05-11] MEDS: Cholecalciferol (Vitamin D3) 1,000 Unit Tab PO SCH (08:32)
[2018-05-11] MEDS: Warfarin 5 MG Tab PO SCH (17:14)
[2018-05-11] MEDS: Magnesium Oxide 400 MG Tab PO SCH (20:04)
[2018-05-11] MEDS: Lidocaine 5% 700 MG Patch TRDERM SCH (20:04)
[2018-05-11] MEDS: Melatonin 3 MG Tab PO SCH (20:05)
[2018-05-11] MEDS: traMADol 50 MG Tab PO SCH (20:06)
[2018-05-11] MEDS: Simvastatin 20 MG Tab PO SCH (20:08)
[2018-05-12] MEDS: Pantoprazole 40 MG Tab.CR PO SCH (06:48)
[2018-05-12] MEDS: Acetaminophen 500 MG Tab PO SCH ×3 (06:48→22:22)
[2018-05-12] MEDS: busPIRone 10 MG Tab PO SCH ×2 (08:01→20:17)
[2018-05-12] MEDS: Saccharomyces Boulardii (Probiotic) 250 MG Cap PO SCH (08:01)
[2018-05-12] MEDS: Losartan 100 MG Tab PO SCH (08:01)
[2018-05-12] MEDS: Folic Acid 0.4 MG Tab PO SCH (08:02)
[2018-05-12] MEDS: Cholecalciferol (Vitamin D3) 1,000 Unit Tab PO SCH (08:02)
[2018-05-12] MEDS: Multivitamin Tab PO SCH ×2 (08:02→20:19)
[2018-05-12] MEDS: amLODIPine 5 MG Tab PO SCH (08:02)
[2018-05-12] MEDS: Polyethylene Glycol 3350 Powder 17 GM Packet PO SCH (08:08)
[2018-05-12] MEDS: Lidocaine 5% 700 MG Patch TOP SCH (08:08)
[2018-05-12] MEDS: Gabapentin 300 MG Cap PO SCH ×3 (08:14→20:19)
[2018-05-12] MEDS: traMADol 50 MG Tab PO PRN (10:08)
[2018-05-12] MEDS: Warfarin 5 MG Tab PO SCH (15:55)
[2018-05-12] MEDS: Melatonin 3 MG Tab PO SCH (20:18)
[2018-05-12] MEDS: Lidocaine 5% 700 MG Patch TRDERM SCH (20:18)
[2018-05-12] MEDS: Magnesium Oxide 400 MG Tab PO SCH (20:18)
[2018-05-12] MEDS: traMADol 50 MG Tab PO SCH (20:20)
[2018-05-12] MEDS: Simvastatin 20 MG Tab PO SCH (20:20)
[2018-05-13] MEDS: busPIRone 10 MG Tab PO SCH ×2 (09:00→20:43)
[2018-05-13] MEDS: Multivitamin Tab PO SCH ×2 (09:15→20:46)
[2018-05-13] MEDS: Acetaminophen 500 MG Tab PO SCH ×3 (12:26→21:53)
[2018-05-13] MEDS: Saccharomyces Boulardii (Probiotic) 250 MG Cap PO SCH (12:26)
[2018-05-13] MEDS: Losartan 100 MG Tab PO SCH (12:26)
[2018-05-13] MEDS: Folic Acid 0.4 MG Tab PO SCH (12:27)
[2018-05-13] MEDS: Lidocaine 5% 700 MG Patch TOP SCH (12:27)
[2018-05-13] MEDS: Polyethylene Glycol 3350 Powder 17 GM Packet PO SCH (12:28)
[2018-05-13] MEDS: amLODIPine 5 MG Tab PO SCH (12:29)
[2018-05-13] MEDS: Gabapentin 300 MG Cap PO SCH ×3 (12:29→20:45)
[2018-05-13] MEDS: Famotidine 20 MG Tab PO SCH (12:30)
[2018-05-13] MEDS: Cholecalciferol (Vitamin D3) 1,000 Unit Tab PO SCH (12:32)
[2018-05-13] MEDS ORDERED: Warfarin 2.5 MG Tab PO ONE (16:00)
[2018-05-13] MEDS: traMADol 50 MG Tab PO PRN (17:14)
[2018-05-13] MEDS: Magnesium Oxide 400 MG Tab PO SCH (20:44)
[2018-05-13] MEDS: Lidocaine 5% 700 MG Patch TRDERM SCH (20:44)
[2018-05-13] MEDS: Melatonin 3 MG Tab PO SCH (20:45)
[2018-05-13] MEDS: traMADol 50 MG Tab PO SCH (20:46)
[2018-05-13] MEDS: Simvastatin 20 MG Tab PO SCH (20:47)
[2018-05-14] MEDS: Acetaminophen 500 MG Tab PO SCH ×3 (05:52→21:28)
[2018-05-14] MEDS: Pantoprazole 40 MG Tab.CR PO SCH (05:53)
[2018-05-14] MEDS: Polyethylene Glycol 3350 Powder 17 GM Packet PO SCH (09:08)
[2018-05-14] MEDS: amLODIPine 5 MG Tab PO SCH (09:09)
[2018-05-14] MEDS: Losartan 100 MG Tab PO SCH (09:09)
[2018-05-14] MEDS: Saccharomyces Boulardii (Probiotic) 250 MG Cap PO SCH (09:10)
[2018-05-14] MEDS: Folic Acid 0.4 MG Tab PO SCH (09:10)
[2018-05-14] MEDS: Multivitamin Tab PO SCH ×2 (09:10→21:28)
[2018-05-14] MEDS: busPIRone 10 MG Tab PO SCH ×2 (09:10→21:28)
[2018-05-14] MEDS: Cholecalciferol (Vitamin D3) 1,000 Unit Tab PO SCH (09:10)
[2018-05-14] MEDS: Gabapentin 300 MG Cap PO SCH ×3 (09:17→21:28)
[2018-05-14] MEDS: Lidocaine 5% 700 MG Patch TOP SCH (09:18)
[2018-05-14] MEDS: traMADol 50 MG Tab PO PRN ×2 (12:57→18:17)
[2018-05-14] MEDS ORDERED: Warfarin 2.5 MG Tab PO ONE (16:00)
[2018-05-14] MEDS: Simvastatin 20 MG Tab PO SCH (21:28)
[2018-05-14] MEDS: Melatonin 3 MG Tab PO SCH (21:28)
[2018-05-14] MEDS: Magnesium Oxide 400 MG Tab PO SCH (21:28)
[2018-05-14] MEDS: Lidocaine 5% 700 MG Patch TRDERM SCH (21:29)
[2018-05-14] MEDS: traMADol 50 MG Tab PO SCH (22:12)
[2018-05-15] MEDS: Acetaminophen 500 MG Tab PO SCH ×3 (06:35→21:39)
[2018-05-15] MEDS: traMADol 50 MG Tab PO PRN ×2 (06:41→14:34)
[2018-05-15] MEDS: Losartan 100 MG Tab PO SCH (08:59)
[2018-05-15] MEDS: busPIRone 10 MG Tab PO SCH ×2 (08:59→21:35)
[2018-05-15] MEDS: amLODIPine 5 MG Tab PO SCH (09:00)
[2018-05-15] MEDS: Multivitamin Tab PO SCH ×2 (09:00→21:38)
[2018-05-15] MEDS: Famotidine 20 MG Tab PO SCH (09:00)
[2018-05-15] MEDS: Cholecalciferol (Vitamin D3) 1,000 Unit Tab PO SCH (09:01)
[2018-05-15] MEDS: Folic Acid 0.4 MG Tab PO SCH (09:01)
[2018-05-15] MEDS: Gabapentin 300 MG Cap PO SCH ×3 (09:01→21:45)
[2018-05-15] MEDS: Saccharomyces Boulardii (Probiotic) 250 MG Cap PO SCH (09:01)
[2018-05-15] MEDS: Polyethylene Glycol 3350 Powder 17 GM Packet PO SCH (09:01)
[2018-05-15] MEDS: Lidocaine 5% 700 MG Patch TOP SCH (09:02)
[2018-05-15] MEDS ORDERED: Warfarin 5 MG Tab PO ONE (16:00)
[2018-05-15] MEDS: traMADol 50 MG Tab PO SCH (21:29)
[2018-05-15] MEDS: Lidocaine 5% 700 MG Patch TRDERM SCH (21:36)
[2018-05-15] MEDS: Melatonin 3 MG Tab PO SCH (21:37)
[2018-05-15] MEDS: Magnesium Oxide 400 MG Tab PO SCH (21:37)
[2018-05-15] MEDS: Simvastatin 20 MG Tab PO SCH (21:39)
[2018-05-16] MEDS: Acetaminophen 500 MG Tab PO SCH ×3 (05:57→22:15)
[2018-05-16] MEDS: Pantoprazole 40 MG Tab.CR PO SCH (07:26)
[2018-05-16] MEDS: busPIRone 10 MG Tab PO SCH ×2 (08:10→20:35)
[2018-05-16] MEDS: Losartan 100 MG Tab PO SCH (08:11)
[2018-05-16] MEDS: Saccharomyces Boulardii (Probiotic) 250 MG Cap PO SCH (08:13)
[2018-05-16] MEDS: Folic Acid 0.4 MG Tab PO SCH (08:13)
[2018-05-16] MEDS: Polyethylene Glycol 3350 Powder 17 GM Packet PO SCH (08:13)
[2018-05-16] MEDS: amLODIPine 5 MG Tab PO SCH (08:14)
[2018-05-16] MEDS: Multivitamin Tab PO SCH ×2 (08:14→20:37)
[2018-05-16] MEDS: Cholecalciferol (Vitamin D3) 1,000 Unit Tab PO SCH (08:14)
[2018-05-16] MEDS: Gabapentin 300 MG Cap PO SCH ×3 (08:17→21:00)
[2018-05-16] MEDS: Lidocaine 5% 700 MG Patch TOP SCH (08:52)
[2018-05-16] MEDS: traMADol 50 MG Tab PO PRN (11:40)
[2018-05-16] MEDS: EXENATIDE MICROSPHERES 2 MG SQ SCH (14:18)
[2018-05-16] MEDS: Warfarin 5 MG Tab PO SCH (16:09)
[2018-05-16] MEDS: Magnesium Oxide 400 MG Tab PO SCH (20:35)
[2018-05-16] MEDS: Lidocaine 5% 700 MG Patch TRDERM SCH (20:36)
[2018-05-16] MEDS: Melatonin 3 MG Tab PO SCH (20:36)
[2018-05-16] MEDS: Simvastatin 20 MG Tab PO SCH (20:42)
[2018-05-16] MEDS: traMADol 50 MG Tab PO SCH (20:43)
[2018-05-17] MEDS: Acetaminophen 500 MG Tab PO SCH ×3 (06:02→22:05)
[2018-05-17] MEDS: traMADol 50 MG Tab PO PRN ×2 (08:34→14:32)
[2018-05-17] MEDS: Losartan 100 MG Tab PO SCH (08:35)
[2018-05-17] MEDS: Cholecalciferol (Vitamin D3) 1,000 Unit Tab PO SCH (08:35)
[2018-05-17] MEDS: Saccharomyces Boulardii (Probiotic) 250 MG Cap PO SCH (08:35)
[2018-05-17] MEDS: Gabapentin 300 MG Cap PO SCH ×3 (08:35→21:09)
[2018-05-17] MEDS: Folic Acid 0.4 MG Tab PO SCH (08:37)
[2018-05-17] MEDS: busPIRone 10 MG Tab PO SCH ×2 (08:37→21:10)
[2018-05-17] MEDS: Multivitamin Tab PO SCH ×2 (08:37→21:09)
[2018-05-17] MEDS: amLODIPine 5 MG Tab PO SCH (08:37)
[2018-05-17] MEDS: Famotidine 20 MG Tab PO SCH (08:38)
[2018-05-17] MEDS: Lidocaine 5% 700 MG Patch TOP SCH (08:38)
[2018-05-17] MEDS: Polyethylene Glycol 3350 Powder 17 GM Packet PO SCH (08:38)
[2018-05-17] MEDS: Warfarin 2.5 MG Tab PO SCH (17:14)
[2018-05-17] MEDS: Simvastatin 20 MG Tab PO SCH (21:09)
[2018-05-17] MEDS: Magnesium Oxide 400 MG Tab PO SCH (21:09)
[2018-05-17] MEDS: traMADol 50 MG Tab PO SCH (21:10)
[2018-05-17] MEDS: Melatonin 3 MG Tab PO SCH (21:10)
[2018-05-17] MEDS: Lidocaine 5% 700 MG Patch TRDERM SCH (21:15)
[2018-05-18] MEDS: Pantoprazole 40 MG Tab.CR PO SCH (05:56)
[2018-05-18] MEDS: Acetaminophen 500 MG Tab PO SCH ×3 (05:56→21:58)
[2018-05-18] MEDS: Folic Acid 0.4 MG Tab PO SCH (08:12)
[2018-05-18] MEDS: busPIRone 10 MG Tab PO SCH ×2 (08:13→20:18)
[2018-05-18] MEDS: Losartan 100 MG Tab PO SCH (08:13)
[2018-05-18] MEDS: Saccharomyces Boulardii (Probiotic) 250 MG Cap PO SCH (08:13)
[2018-05-18] MEDS: Multivitamin Tab PO SCH ×2 (08:13→20:19)
[2018-05-18] MEDS: Cholecalciferol (Vitamin D3) 1,000 Unit Tab PO SCH (08:14)
[2018-05-18] MEDS: amLODIPine 5 MG Tab PO SCH (08:14)
[2018-05-18] MEDS: Lidocaine 5% 700 MG Patch TOP SCH (08:15)
[2018-05-18] MEDS: traMADol 50 MG Tab PO PRN ×2 (08:17→14:35)
[2018-05-18] MEDS: Polyethylene Glycol 3350 Powder 17 GM Packet PO SCH (08:18)
[2018-05-18] MEDS: Gabapentin 300 MG Cap PO SCH ×3 (08:18→20:34)
--- NOTE | 2018-05-18 13:43 | PN ---
DATE SEEN: 05/18/2018 HISTORY: Ms. Chase is a 77-year-old woman, who underwent a cervical spine fusion by Dr. Guanaco Higuera in [place] on the March,. Four days later, she had a multilevel lumbar spine fusion by Dr. Guanaco Higuera in [place] for relatively sudden worsening of low back pain and leg weakness. Subsequent to that, she has been in a cervical brace. She was discharged to swing bed at [facility] on April 16, 2018, and she has been progressing satisfactorily through therapy. She saw Dr. Higuera in his office approximately 2 days ago. Repeat cervical spine x-rays were done, and she was told there is a loose screw, so she needs to stay in the cervical collar for an additional 6 weeks. She judges her pain level in the back as still moderate. She is trying to minimize her pain medications. Ms. Chase also has a history of recurrent pulmonary emboli and is on lifelong anticoagulation. PAST MEDICAL HISTORY: She has type 2 diabetes. REVIEW OF SYSTEMS: She is not having fever, chills, sweats, or symptoms of infection. No cough, dyspnea, or chest pain. No shortness of breath, palpitations, abdominal pain, swelling, or skin rash. PHYSICAL EXAMINATION: GENERAL: She is alert, comfortable, and a good historian. VITAL SIGNS: Blood pressure 138/40, pulse 78 and regular, respirations 14, temperature 98.1, O2 saturation 99% on room air. Weight on May 02, 168 pounds 8 ounces. SKIN: Shows nicely healed left lumbar paramedian surgical incision. Right paramedian lumbar surgical incision is healing nicely with the exception of a 1 cm scabbed area with no sign of infection in the upper end of her right-sided incision. She has an anterior cervical incision that is healing nicely as well. Cervical brace was not removed for exam. She also has a gauze pad over her coccyx that was not removed. HEENT: Show her mouth to be dry. LUNGS: Clear to the bases. HEART: Regular without murmur or gallop. ABDOMEN: Soft, nontender. EXTREMITIES: Show no ankle edema. LABORATORY: INR 2.81. Glucose 173. Hemoglobin done last on April 25 was 10.6. Electrolytes normal. ASSESSMENT: 1. Six weeks postop multilevel cervical fusion, in brace for at least 6 more weeks. 2. Six-week postop multilevel lumbar fusion, apparently healing satisfactorily. 3. Chronic essential hypertension, controlled. 4. Hyperlipidemia. 5. Type 2 diabetes. 6. Recurrent pulmonary embolism, on lifelong warfarin. PLAN: Medications are reviewed today. We will recheck laboratory tomorrow morning. We will plan to discontinue her Protonix, Mag-Ox, and she may be able to get off additional medications in the near future. We will provide palliative care measures for her underlying arthritis and loss of mobility. She will continue her regularly scheduled followup with Dr. Higuera in [place]. /[id number] [id number] JACK/GINA
[2018-05-18] MEDS: Warfarin 5 MG Tab PO SCH (17:06)
[2018-05-18] MEDS: Melatonin 3 MG Tab PO SCH (20:18)
[2018-05-18] MEDS: Magnesium Oxide 400 MG Tab PO SCH (20:18)
[2018-05-18] MEDS: Simvastatin 20 MG Tab PO SCH (20:19)
[2018-05-18] MEDS: Lidocaine 5% 700 MG Patch TRDERM SCH (20:21)
[2018-05-18] MEDS: traMADol 50 MG Tab PO SCH (20:28)
[2018-05-19] MEDS: Acetaminophen 500 MG Tab PO SCH ×3 (06:09→21:01)
[2018-05-19 07:07] LABS: HEMOGLOBIN A1C 5.5 % (4.5-6.2)
[2018-05-19] MEDS: traMADol 50 MG Tab PO PRN ×2 (08:08→16:01)
[2018-05-19] MEDS: Gabapentin 300 MG Cap PO SCH ×3 (08:08→21:08)
[2018-05-19] MEDS: Folic Acid 0.4 MG Tab PO SCH (08:11)
[2018-05-19] MEDS: Losartan 100 MG Tab PO SCH (08:11)
[2018-05-19] MEDS: Saccharomyces Boulardii (Probiotic) 250 MG Cap PO SCH (08:12)
[2018-05-19] MEDS: amLODIPine 5 MG Tab PO SCH (08:12)
[2018-05-19] MEDS: Multivitamin Tab PO SCH ×2 (08:12→21:01)
[2018-05-19] MEDS: busPIRone 10 MG Tab PO SCH ×2 (08:13→20:56)
[2018-05-19] MEDS: Lidocaine 5% 700 MG Patch TOP SCH (08:15)
[2018-05-19] MEDS: Polyethylene Glycol 3350 Powder 17 GM Packet PO SCH (08:18)
[2018-05-19] MEDS: Famotidine 20 MG Tab PO SCH (08:18)
[2018-05-19] MEDS: Cholecalciferol (Vitamin D3) 1,000 Unit Tab PO SCH (08:19)
[2018-05-19] MEDS: Warfarin 5 MG Tab PO SCH (16:03)
[2018-05-19] MEDS: Magnesium Oxide 400 MG Tab PO SCH (20:57)
[2018-05-19] MEDS: Lidocaine 5% 700 MG Patch TRDERM SCH (20:57)
[2018-05-19] MEDS: Melatonin 3 MG Tab PO SCH (20:59)
[2018-05-19] MEDS: Simvastatin 20 MG Tab PO SCH (21:00)
[2018-05-19] MEDS: traMADol 50 MG Tab PO SCH (21:18)
[2018-05-20] MEDS: Acetaminophen 500 MG Tab PO SCH ×3 (06:04→21:11)
[2018-05-20] MEDS: traMADol 50 MG Tab PO PRN (06:29)
[2018-05-20] MEDS: Gabapentin 300 MG Cap PO SCH ×3 (08:33→21:08)
[2018-05-20] MEDS: Lidocaine 5% 700 MG Patch TOP SCH (08:34)
[2018-05-20] MEDS: Saccharomyces Boulardii (Probiotic) 250 MG Cap PO SCH (08:35)
[2018-05-20] MEDS: Cholecalciferol (Vitamin D3) 1,000 Unit Tab PO SCH (08:35)
[2018-05-20] MEDS: Multivitamin Tab PO SCH ×2 (08:35→21:09)
[2018-05-20] MEDS: Losartan 100 MG Tab PO SCH (08:36)
[2018-05-20] MEDS: Folic Acid 0.4 MG Tab PO SCH (08:36)
[2018-05-20] MEDS: busPIRone 10 MG Tab PO SCH ×2 (08:36→21:06)
[2018-05-20] MEDS: amLODIPine 5 MG Tab PO SCH (08:36)
[2018-05-20] MEDS: Polyethylene Glycol 3350 Powder 17 GM Packet PO SCH (08:37)
[2018-05-20] MEDS: Warfarin 5 MG Tab PO SCH (17:42)
[2018-05-20] MEDS: Simvastatin 20 MG Tab PO SCH (21:06)
[2018-05-20] MEDS: Lidocaine 5% 700 MG Patch TRDERM SCH (21:07)
[2018-05-20] MEDS: Melatonin 3 MG Tab PO SCH (21:08)
[2018-05-20] MEDS: Magnesium Oxide 400 MG Tab PO SCH (21:08)
[2018-05-20] MEDS: traMADol 50 MG Tab PO SCH (21:10)
[2018-05-21] MEDS: Acetaminophen 500 MG Tab PO SCH ×3 (06:50→21:23)
[2018-05-21] MEDS: Lidocaine 5% 700 MG Patch TOP SCH (08:51)
[2018-05-21] MEDS: busPIRone 10 MG Tab PO SCH ×2 (08:53→21:24)
[2018-05-21] MEDS: Saccharomyces Boulardii (Probiotic) 250 MG Cap PO SCH (08:54)
[2018-05-21] MEDS: Cholecalciferol (Vitamin D3) 1,000 Unit Tab PO SCH (08:55)
[2018-05-21] MEDS: Multivitamin Tab PO SCH ×2 (08:55→21:27)
[2018-05-21] MEDS: Polyethylene Glycol 3350 Powder 17 GM Packet PO SCH (08:57)
[2018-05-21] MEDS: Famotidine 20 MG Tab PO SCH (08:57)
[2018-05-21] MEDS: Folic Acid 0.4 MG Tab PO SCH (08:59)
[2018-05-21] MEDS: traMADol 50 MG Tab PO PRN ×2 (09:02→14:52)
[2018-05-21] MEDS: Losartan 100 MG Tab PO SCH (09:04)
[2018-05-21] MEDS: amLODIPine 5 MG Tab PO SCH (09:09)
[2018-05-21] MEDS: Gabapentin 300 MG Cap PO SCH ×3 (09:24→21:26)
[2018-05-21] MEDS: Warfarin 2.5 MG Tab PO SCH (17:02)
[2018-05-21] MEDS: Lidocaine 5% 700 MG Patch TRDERM SCH (21:24)
[2018-05-21] MEDS: Melatonin 3 MG Tab PO SCH (21:25)
[2018-05-21] MEDS: traMADol 50 MG Tab PO SCH (21:27)
[2018-05-21] MEDS: Magnesium Oxide 400 MG Tab PO SCH (21:28)
[2018-05-21] MEDS: Simvastatin 20 MG Tab PO SCH (21:28)
[2018-05-22] MEDS: Acetaminophen 500 MG Tab PO SCH ×3 (05:30→23:17)
[2018-05-22] MEDS: traMADol 50 MG Tab PO PRN ×2 (08:05→14:05)
[2018-05-22] MEDS: Gabapentin 300 MG Cap PO SCH ×3 (08:05→21:16)
[2018-05-22] MEDS: amLODIPine 5 MG Tab PO SCH (08:07)
[2018-05-22] MEDS: Multivitamin Tab PO SCH ×2 (08:07→21:16)
[2018-05-22] MEDS: Saccharomyces Boulardii (Probiotic) 250 MG Cap PO SCH (08:07)
[2018-05-22] MEDS: busPIRone 10 MG Tab PO SCH ×2 (08:08→21:14)
[2018-05-22] MEDS: Cholecalciferol (Vitamin D3) 1,000 Unit Tab PO SCH (08:08)
[2018-05-22] MEDS: Losartan 100 MG Tab PO SCH (08:08)
[2018-05-22] MEDS: Polyethylene Glycol 3350 Powder 17 GM Packet PO SCH (08:09)
[2018-05-22] MEDS: Lidocaine 5% 700 MG Patch TOP SCH (08:13)
[2018-05-22] MEDS: Folic Acid 0.4 MG Tab PO SCH (08:27)
[2018-05-22] MEDS: Warfarin 5 MG Tab PO SCH (17:44)
[2018-05-22] MEDS: Magnesium Oxide 400 MG Tab PO SCH (21:15)
[2018-05-22] MEDS: Melatonin 3 MG Tab PO SCH (21:15)
[2018-05-22] MEDS: traMADol 50 MG Tab PO SCH (21:17)
[2018-05-22] MEDS: Simvastatin 20 MG Tab PO SCH (21:19)
[2018-05-23] MEDS: Acetaminophen 500 MG Tab PO SCH ×3 (07:18→21:03)
[2018-05-23] MEDS: traMADol 50 MG Tab PO PRN ×2 (08:39→13:57)
[2018-05-23] MEDS: busPIRone 10 MG Tab PO SCH ×2 (08:40→20:30)
[2018-05-23] MEDS: Gabapentin 300 MG Cap PO SCH ×3 (08:40→20:34)
[2018-05-23] MEDS: amLODIPine 5 MG Tab PO SCH (08:42)
[2018-05-23] MEDS: Famotidine 20 MG Tab PO SCH (08:42)
[2018-05-23] MEDS: Multivitamin Tab PO SCH ×2 (08:43→20:32)
[2018-05-23] MEDS: Cholecalciferol (Vitamin D3) 1,000 Unit Tab PO SCH (08:43)
[2018-05-23] MEDS: Losartan 100 MG Tab PO SCH (08:44)
[2018-05-23] MEDS: Polyethylene Glycol 3350 Powder 17 GM Packet PO SCH (08:45)
[2018-05-23] MEDS: Folic Acid 0.4 MG Tab PO SCH (08:45)
[2018-05-23] MEDS: Saccharomyces Boulardii (Probiotic) 250 MG Cap PO SCH (08:50)
[2018-05-23] MEDS: EXENATIDE MICROSPHERES 2 MG SQ SCH (13:15)
[2018-05-23] MEDS: Warfarin 5 MG Tab PO SCH (16:55)
[2018-05-23] MEDS: Magnesium Oxide 400 MG Tab PO SCH (20:31)
[2018-05-23] MEDS: Melatonin 3 MG Tab PO SCH (20:31)
[2018-05-23] MEDS: traMADol 50 MG Tab PO SCH (20:34)
[2018-05-23] MEDS: Simvastatin 20 MG Tab PO SCH (20:34)
[2018-05-24] MEDS: Acetaminophen 500 MG Tab PO SCH ×3 (05:55→21:21)
[2018-05-24] MEDS: Gabapentin 300 MG Cap PO SCH ×3 (08:01→20:24)
[2018-05-24] MEDS: traMADol 50 MG Tab PO PRN ×2 (08:01→13:32)
[2018-05-24] MEDS: Multivitamin Tab PO SCH ×2 (08:03→22:47)
[2018-05-24] MEDS: amLODIPine 5 MG Tab PO SCH (08:03)
[2018-05-24] MEDS: Folic Acid 0.4 MG Tab PO SCH (08:04)
[2018-05-24] MEDS: busPIRone 10 MG Tab PO SCH ×2 (08:04→20:14)
[2018-05-24] MEDS: Losartan 100 MG Tab PO SCH (08:05)
[2018-05-24] MEDS: Saccharomyces Boulardii (Probiotic) 250 MG Cap PO SCH (08:05)
[2018-05-24] MEDS: Cholecalciferol (Vitamin D3) 1,000 Unit Tab PO SCH (08:06)
[2018-05-24] MEDS: Polyethylene Glycol 3350 Powder 17 GM Packet PO SCH (08:06)
[2018-05-24] MEDS: Warfarin 2.5 MG Tab PO SCH (16:25)
[2018-05-24] MEDS: Magnesium Oxide 400 MG Tab PO SCH (20:14)
[2018-05-24] MEDS: Simvastatin 20 MG Tab PO SCH (20:14)
[2018-05-24] MEDS: Melatonin 3 MG Tab PO SCH (20:15)
[2018-05-24] MEDS: traMADol 50 MG Tab PO SCH (21:21)
[2018-05-25] MEDS: Acetaminophen 500 MG Tab PO SCH ×3 (05:00→22:08)
[2018-05-25] MEDS: Polyethylene Glycol 3350 Powder 17 GM Packet PO SCH (08:35)
[2018-05-25] MEDS: busPIRone 10 MG Tab PO SCH ×2 (08:36→22:13)
[2018-05-25] MEDS: amLODIPine 5 MG Tab PO SCH (08:36)
[2018-05-25] MEDS: Famotidine 20 MG Tab PO SCH (08:36)
[2018-05-25] MEDS: Cholecalciferol (Vitamin D3) 1,000 Unit Tab PO SCH (08:36)
[2018-05-25] MEDS: Folic Acid 0.4 MG Tab PO SCH (08:36)
[2018-05-25] MEDS: Saccharomyces Boulardii (Probiotic) 250 MG Cap PO SCH (08:38)
[2018-05-25] MEDS: Multivitamin Tab PO SCH ×2 (08:38→20:45)
[2018-05-25] MEDS: Gabapentin 300 MG Cap PO SCH ×3 (08:38→20:45)
[2018-05-25] MEDS: Losartan 100 MG Tab PO SCH (08:38)
[2018-05-25] MEDS: Warfarin 5 MG Tab PO SCH (15:24)
[2018-05-25] MEDS: traMADol 50 MG Tab PO PRN (16:18)
[2018-05-25] MEDS: traMADol 50 MG Tab PO SCH (20:44)
[2018-05-25] MEDS: Melatonin 3 MG Tab PO SCH (20:45)
[2018-05-25] MEDS: Simvastatin 20 MG Tab PO SCH (20:45)
[2018-05-25] MEDS: Magnesium Oxide 400 MG Tab PO SCH (21:00)
[2018-05-26] MEDS: Acetaminophen 500 MG Tab PO SCH ×3 (05:55→22:21)
[2018-05-26] MEDS: Gabapentin 300 MG Cap PO SCH ×3 (08:28→20:27)
[2018-05-26] MEDS: amLODIPine 5 MG Tab PO SCH (08:29)
[2018-05-26] MEDS: traMADol 50 MG Tab PO PRN (08:29)
[2018-05-26] MEDS: busPIRone 10 MG Tab PO SCH ×2 (08:30→20:30)
[2018-05-26] MEDS: Saccharomyces Boulardii (Probiotic) 250 MG Cap PO SCH (08:30)
[2018-05-26] MEDS: Folic Acid 0.4 MG Tab PO SCH (08:30)
[2018-05-26] MEDS: Cholecalciferol (Vitamin D3) 1,000 Unit Tab PO SCH (08:31)
[2018-05-26] MEDS: Losartan 100 MG Tab PO SCH (08:31)
[2018-05-26] MEDS: Multivitamin Tab PO SCH ×2 (08:31→20:31)
[2018-05-26] MEDS: Polyethylene Glycol 3350 Powder 17 GM Packet PO SCH (08:35)
[2018-05-26] MEDS: Warfarin 5 MG Tab PO SCH (20:25)
[2018-05-26] MEDS: traMADol 50 MG Tab PO SCH (20:26)
[2018-05-26] MEDS: Melatonin 3 MG Tab PO SCH (20:31)
[2018-05-26] MEDS: Simvastatin 20 MG Tab PO SCH (20:31)
[2018-05-26] MEDS: Magnesium Oxide 400 MG Tab PO SCH (20:31)
[2018-05-27] MEDS: traMADol 50 MG Tab PO PRN ×2 (04:30→08:40)
[2018-05-27] MEDS: Acetaminophen 500 MG Tab PO SCH ×3 (06:21→21:51)
[2018-05-27] MEDS: Polyethylene Glycol 3350 Powder 17 GM Packet PO SCH (08:39)
[2018-05-27] MEDS: Gabapentin 300 MG Cap PO SCH ×3 (08:40→20:13)
[2018-05-27] MEDS: amLODIPine 5 MG Tab PO SCH (08:41)
[2018-05-27] MEDS: Losartan 100 MG Tab PO SCH (08:41)
[2018-05-27] MEDS: Folic Acid 0.4 MG Tab PO SCH (08:42)
[2018-05-27] MEDS: Multivitamin Tab PO SCH ×2 (08:42→20:13)
[2018-05-27] MEDS: Saccharomyces Boulardii (Probiotic) 250 MG Cap PO SCH (08:42)
[2018-05-27] MEDS: Cholecalciferol (Vitamin D3) 1,000 Unit Tab PO SCH (08:42)
[2018-05-27] MEDS: busPIRone 10 MG Tab PO SCH ×2 (08:42→20:12)
[2018-05-27] MEDS: Famotidine 20 MG Tab PO SCH (08:43)
[2018-05-27] MEDS ORDERED: Warfarin 2.5 MG Tab PO ONE (16:00)
[2018-05-27] MEDS: Magnesium Oxide 400 MG Tab PO SCH (20:12)
[2018-05-27] MEDS: Melatonin 3 MG Tab PO SCH (20:13)
[2018-05-27] MEDS: traMADol 50 MG Tab PO SCH (20:14)
[2018-05-27] MEDS: Simvastatin 20 MG Tab PO SCH (20:15)
[2018-05-28] MEDS: traMADol 50 MG Tab PO PRN ×2 (03:30→13:47)
[2018-05-28] MEDS: Acetaminophen 500 MG Tab PO SCH ×3 (07:10→21:17)
[2018-05-28] MEDS: Gabapentin 300 MG Cap PO SCH ×3 (08:12→21:15)
[2018-05-28] MEDS: Polyethylene Glycol 3350 Powder 17 GM Packet PO SCH (08:12)
[2018-05-28] MEDS: amLODIPine 5 MG Tab PO SCH (08:13)
[2018-05-28] MEDS: Folic Acid 0.4 MG Tab PO SCH (08:14)
[2018-05-28] MEDS: Saccharomyces Boulardii (Probiotic) 250 MG Cap PO SCH (08:15)
[2018-05-28] MEDS: busPIRone 10 MG Tab PO SCH ×2 (08:15→21:14)
[2018-05-28] MEDS: Cholecalciferol (Vitamin D3) 1,000 Unit Tab PO SCH (08:16)
[2018-05-28] MEDS: Multivitamin Tab PO SCH ×2 (08:16→21:15)
[2018-05-28] MEDS: Losartan 100 MG Tab PO SCH (08:17)
--- NOTE | 2018-05-28 09:12 | PCM.PN ---
- General Info Date of Service: 05/28/18 Admission Dx/Problem (Free Text): Patient states occasionally she has some pain or left buttocks. Neck is feeling pretty good although she still in the collar. - Patient Data Vitals - Most Recent: Last Vital Signs Temp 97.6 F 05/27/18 07:44 Pulse 80 05/27/18 07:44 Resp 18 05/27/18 07:44 BP 141/63 H 05/28/18 08:17 Pulse Ox 100 05/27/18 07:44 Weight - Most Recent: 168 lb 8 oz Lab Results Last 24 Hours: Laboratory Results - last 24 hr 05/28/18 Range/Units 06:16 PT 21.5 H (8.7-11.1) INR 2.24 H (0.89-1.13) Med Orders - Current: Current Medications Acetaminophen (Tylenol Extra Strength) 1,000 mg PO Q8H [facility] Last Admin: 05/28/18 07:10 Dose: 1,000 mg Amlodipine Besylate (Norvasc) 5 mg PO DAILY [facility] Last Admin: 05/28/18 08:13 Dose: 5 mg Buspirone HCl (Buspar) 5 mg PO BID [facility] Last Admin: 05/28/18 08:15 Dose: 5 mg Cholecalciferol (Vitamin D3) 1,000 units PO DAILY [facility] Last Admin: 05/28/18 08:16 Dose: 1,000 units Coenzyme Q10 (Coenzyme Q10) 100 mg PO DAILY [facility] Last Admin: 05/28/18 08:16 Dose: 100 mg Famotidine (Pepcid) 20 mg PO Q48H [facility] Last Admin: 05/27/18 08:43 Dose: 20 mg Folic Acid (Folic Acid) 1.2 mg PO DAILY [facility] Last Admin: 05/28/18 08:14 Dose: 1.2 mg Gabapentin (Neurontin) 300 mg PO TID [facility] Last Admin: 05/28/18 08:12 Dose: 300 mg Losartan Potassium (Cozaar) 100 mg PO DAILY [facility] Last Admin: 05/28/18 08:17 Dose: 100 mg Lutein (Lutein) 20 mg PO DAILY [facility] Last Admin: 05/28/18 08:14 Dose: 20 mg Magnesium Hydroxide (Milk Of Magnesia) 30 ml PO DAILY PRN PRN Reason: Constipation Last Admin: 04/18/18 04:18 Dose: 30 ml Magnesium Oxide (Magnesium Oxide) 200 mg PO BEDTIME [facility] Last Admin: 05/27/18 20:12 Dose: 200 mg Melatonin (Melatonin) 9 mg PO BEDTIME [facility] Last Admin: 05/27/18 20:13 Dose: 9 mg Multivitamins/Minerals/Vitamin C (Tab-A-Champ) 1 tab PO BID [facility] Last Admin: 05/28/18 08:16 Dose: 1 tab Exenatide Microspheres [ Bydureon Pen] 2 Mg * Ptom 2 mg SQ We@0900 [facility] Last Admin: 05/23/18 13:15 Dose: 2 mg Non-Formulary Medication (Potassium [Potassium]) 99 mg PO BID [facility] Polyethylene Glycol (Miralax) 17 gm PO DAILY [facility] Last Admin: 05/28/18 08:12 Dose: 17 gm Saccharomyces Boulardii (Florastor) 250 mg PO DAILY [facility] Last Admin: 05/28/18 08:15 Dose: 250 mg Simvastatin (Zocor) 20 mg PO BEDTIME [facility] Last Admin: 05/27/18 20:15 Dose: 20 mg Tramadol HCl (Ultram) 100 mg PO BEDTIME [facility] Last Admin: 05/27/18 20:14 Dose: 100 mg Tramadol HCl (Ultram) 50 mg PO BID PRN PRN Reason: Pain Last Admin: 05/28/18 03:30 Dose: 50 mg Warfarin Sodium (Coumadin Sliding Scale) 1 each PO ASDIRECTED [facility] Warfarin Sodium (Coumadin) 5 mg PO DAILY@1600 [facility] Discontinued Medications Acetaminophen (Tylenol) 650 mg PO Q4H PRN PRN Reason: break through pain Last Admin: 04/20/18 04:26 Dose: 650 mg Acetaminophen (Tylenol Extra Strength) 1,000 mg PO Q8H [facility] Last Admin: 04/20/18 08:25 Dose: 1,000 mg Acetaminophen/Diphenhydramine HCl (Tylenol Pm Extra Strength) 1 tab PO BEDTIME PRN PRN Reason: Sleep Last Admin: 04/17/18 22:44 Dose: 1 tab Buspirone HCl (Buspar) 5 mg PO BID [facility] Last Admin: 04/25/18 20:05 Dose: 5 mg Celecoxib (Celebrex) 200 mg PO BID [facility] Last Admin: 04/20/18 08:01 Dose: 200 mg Gabapentin (Neurontin) 200 mg PO DAILY [facility] Last Admin: 04/20/18 08:20 Dose: 200 mg Gabapentin (Neurontin) 300 mg PO BEDTIME [facility] Last Admin: 04/19/18 20:41 Dose: 300 mg Hydrochlorothiazide (Hydrochlorothiazide) 12.5 mg PO DAILY [facility] Last Admin: 04/20/18 08:05 Dose: 12.5 mg Lidocaine (Lidoderm 5%) 700 mg TOP DAILY [facility] Last Admin: 04/26/18 08:28 Dose: Not Given Lidocaine (Lidoderm 5%) 700 mg TRDERM DAILY [facility] Last Admin: 04/26/18 08:28 Dose: Not Given Lidocaine (Lidoderm 5%) 700 mg TOP BEDTIME [facility] Last Admin: 05/01/18 20:23 Dose: 700 mg Lidocaine (Lidoderm 5%) 700 mg TRDERM BEDTIME [facility] Last Admin: 05/21/18 21:24 Dose: 700 mg Lidocaine (Lidoderm 5%) 700 mg TOP Q24H [facility] Stop: 05/22/18 21:00 Last Admin: 05/22/18 08:13 Dose: 700 mg Magnesium Citrate (Citrate Of Magnesia) 296 ml PO ONETIME ONE Stop: 04/18/18 08:32 Last Admin: 04/18/18 08:44 Dose: 296 ml Magnesium Hydroxide (Milk Of Magnesia) 30 ml PO ONETIME ONE Stop: 04/18/18 08:41 Last Admin: 04/18/18 08:40 Dose: 30 ml Miscellaneous Information (Remove Patch) 1 ea TRDERM BEDTIME [facility] Last Admin: 04/25/18 20:06 Dose: 1 ea Miscellaneous Information (Remove Patch) 1 ea TRDERM BEDTIME [facility] Last Admin: 04/25/18 20:07 Dose: 1 ea Miscellaneous Information (Remove Patch) 1 ea TRDERM DAILY [facility] Last Admin: 05/22/18 08:09 Dose: 1 ea Miscellaneous Information (Remove Patch) 1 ea TRDERM DAILY [facility] Last Admin: 05/02/18 08:06 Dose: 1 ea Miscellaneous Information (Remove Patch) 1 ea TRDERM BEDTIME [facility] Stop: 05/22/18 23:00 Last Admin: 05/22/18 21:16 Dose: 1 ea Naproxen (Naprosyn) 500 mg PO Q12HR [facility] Oxycodone HCl (Oxycodone) 5 mg PO Q6H PRN PRN Reason: Pain Last Admin: 04/18/18 08:41 Dose: 5 mg Pantoprazole Sodium (Protonix) 40 mg PO Q48H [facility] Last Admin: 04/26/18 06:58 Dose: 40 mg Pantoprazole Sodium (Protonix) 40 mg PO Q48H [facility] Last Admin: 05/18/18 05:56 Dose: 40 mg Tramadol HCl (Ultram) 50 mg PO Q6H PRN PRN Reason: Pain Last Admin: 05/01/18 04:13 Dose: 50 mg Tramadol HCl (Ultram) 50 mg PO TID [facility] Tramadol HCl (Ultram) 50 mg PO TID [facility] Last Admin: 05/01/18 18:42 Dose: Not Given Tramadol HCl (Ultram) 50 mg PO TID [facility] Last Admin: 05/01/18 18:43 Dose: Not Given Tramadol HCl (Ultram) 50 mg PO TID PRN PRN Reason: Pain Last Admin: 05/03/18 15:48 Dose: 50 mg Tramadol HCl (Ultram) 50 - 100 mg PO Q4H PRN PRN Reason: Pain Tramadol HCl (Ultram) 50 - 100 mg PO Q12H PRN PRN Reason: Pain Last Admin: 05/10/18 02:10 Dose: 50 mg Warfarin Sodium (Coumadin) 5 mg PO DAILY@1600 [facility] Last Admin: 04/22/18 17:05 Dose: 5 mg Warfarin Sodium (Coumadin) 5 mg PO 1600 [facility] Last Admin: 04/30/18 15:20 Dose: 5 mg Warfarin Sodium 5 mg/ Warfarin (Sodium 2.5 mg) 7.5 mg PO ONETIME ONE Stop: 04/23/18 16:01 Last Admin: 04/23/18 16:48 Dose: 7.5 mg Warfarin Sodium (Coumadin) 5 mg PO SuTuWeFrSa@1600 [facility] Last Admin: 05/06/18 15:33 Dose: 5 mg Warfarin Sodium (Coumadin) 2.5 mg PO MoTh@1600 [facility] Last Admin: 05/03/18 15:44 Dose: 2.5 mg Warfarin Sodium (Coumadin) 2.5 mg PO ONETIME ONE Stop: 05/08/18 16:01 Last Admin: 05/08/18 18:31 Dose: 2.5 mg Warfarin Sodium (Coumadin) 5 mg PO 05/09/18@1600 [facility] Stop: 05/09/18 16:30 Last Admin: 05/09/18 16:08 Dose: 5 mg Warfarin Sodium (Coumadin) 5 mg PO 05/10/18@1600 [facility] Stop: 05/10/18 16:30 Last Admin: 05/10/18 17:34 Dose: 5 mg Warfarin Sodium (Coumadin) 5 mg PO DAILY@1600 [facility] Last Admin: 05/12/18 15:55 Dose: 5 mg Warfarin Sodium (Coumadin) 2.5 mg PO ONETIME ONE Stop: 05/13/18 16:01 Last Admin: 05/13/18 17:15 Dose: 2.5 mg Warfarin Sodium (Coumadin) 2.5 mg PO ONETIME ONE Stop: 05/14/18 16:01 Last Admin: 05/14/18 16:13 Dose: 2.5 mg Warfarin Sodium (Coumadin) 5 mg PO ONETIME ONE Stop: 05/15/18 16:01 Last Admin: 05/15/18 17:05 Dose: 5 mg Warfarin Sodium (Coumadin) 5 mg PO SuTuWeFrSa [facility] Last Admin: 05/26/18 20:25 Dose: 5 mg Warfarin Sodium (Coumadin) 2.5 mg PO MoTh [facility] Last Admin: 05/24/18 16:25 Dose: 2.5 mg Warfarin Sodium (Coumadin) 7.5 mg PO ONETIME ONE Stop: 05/27/18 16:01 Last Admin: 05/27/18 16:58 Dose: 7.5 mg - Exam General: Alert, Oriented, Cooperative Lungs: Normal Respiratory Effort Back Exam: Other (Neck in cervical collar today.) - Problem List & Annotations (1) Cervical vertebral fusion SNOMED Code(s): 248138132 Code(s): M43.22 - FUSION OF SPINE, CERVICAL REGION Status: Acute Current Visit: Yes Annotation/Comment:: We'll increase gabapentin to 300 mg 3 times a day to see if this gives improved pain management. Continue tramadol. PT and OT to continue to work with the patient for both her cervical spine and lumbar spine with postsurgical precautions. (2) S/P lumbar spinal fusion SNOMED Code(s): 40724402364077, 11139570, 07872255116694 Code(s): Z98.1 - ARTHRODESIS STATUS Status: Acute Current Visit: No Annotation/Comment:: See above. (3) Chronic anticoagulation SNOMED Code(s): 476523593 Code(s): Z79.01 - BUILDINGS [employer] (CURRENT) USE OF ANTICOAGULANTS Status: Chronic Current Visit: No Annotation/Comment:: Hold until 04/21/18 at which point warfarin can be restarted with the plan to drift up gradually so patient will be fully anticoagulated around postoperative day #10. (4) Hypertension SNOMED Code(s): 26701815 Code(s): I10 - ESSENTIAL (PRIMARY) HYPERTENSION Status: Chronic Current Visit: No Annotation/Comment:: Was running a little high this morning. We'll monitor. (5) Type 2 diabetes mellitus SNOMED Code(s): 93145849 Code(s): E11.9 - TYPE 2 DIABETES MELLITUS WITHOUT COMPLICATIONS Status: Chronic Current Visit: No Annotation/Comment:: Currently on exenatide once weekly and got a dose yesterday 04/19. Blood sugars have been under 150 and will continue to monitor. (6) Constipation SNOMED Code(s): 41169117 Code(s): K59.00 - CONSTIPATION, UNSPECIFIED Status: Acute Current Visit: Yes Annotation/Comment:: Now with loose stools. Scheduled MiraLAX each day and then added when necessary docusate sodium and patient can decline the MiraLAX if she feels she is becoming too loose. - Problem List Review Problem List Initiated/Reviewed/Updated: Yes - My Orders Last 24 Hours: My Active Orders 05/28/18 16:00 Warfarin [Coumadin] 5 mg PO DAILY@1600 - Assessment Assessment:: Continue current care. - Plan Plan:: 1. Try some oxycodone if the tramadol does not help her pain. Use tramadol for mild pain oxycodone for severe pain. Watch for mental status changes.
[2018-05-28] MEDS: Warfarin 5 MG Tab PO SCH (17:12)
[2018-05-28] MEDS: Magnesium Oxide 400 MG Tab PO SCH (21:14)
[2018-05-28] MEDS: Melatonin 3 MG Tab PO SCH (21:15)
[2018-05-28] MEDS: traMADol 50 MG Tab PO SCH (21:15)
[2018-05-28] MEDS: Simvastatin 20 MG Tab PO SCH (21:16)
[2018-05-29] MEDS: Acetaminophen 500 MG Tab PO SCH ×3 (06:54→21:34)
[2018-05-29] MEDS: busPIRone 10 MG Tab PO SCH ×2 (09:39→20:35)
[2018-05-29] MEDS: Folic Acid 0.4 MG Tab PO SCH (09:41)
[2018-05-29] MEDS: Losartan 100 MG Tab PO SCH (09:41)
[2018-05-29] MEDS: Saccharomyces Boulardii (Probiotic) 250 MG Cap PO SCH (09:41)
[2018-05-29] MEDS: Polyethylene Glycol 3350 Powder 17 GM Packet PO SCH (09:42)
[2018-05-29] MEDS: amLODIPine 5 MG Tab PO SCH (09:43)
[2018-05-29] MEDS: Multivitamin Tab PO SCH ×2 (09:44→20:36)
[2018-05-29] MEDS: Cholecalciferol (Vitamin D3) 1,000 Unit Tab PO SCH (09:44)
[2018-05-29] MEDS: Famotidine 20 MG Tab PO SCH (09:44)
[2018-05-29] MEDS: Gabapentin 300 MG Cap PO SCH ×3 (09:53→20:36)
[2018-05-29] MEDS: traMADol 50 MG Tab PO PRN (14:12)
[2018-05-29] MEDS: Warfarin 5 MG Tab PO SCH (18:42)
[2018-05-29] MEDS: Magnesium Oxide 400 MG Tab PO SCH (20:35)
[2018-05-29] MEDS: Melatonin 3 MG Tab PO SCH (20:36)
[2018-05-29] MEDS: traMADol 50 MG Tab PO SCH (20:37)
[2018-05-29] MEDS: Simvastatin 20 MG Tab PO SCH (20:38)
[2018-05-30] MEDS: Acetaminophen 500 MG Tab PO SCH ×2 (05:43→13:21)
[2018-05-30] MEDS: traMADol 50 MG Tab PO PRN ×2 (07:59→13:21)
--- NOTE | 2018-05-30 08:12 | PCM.PN ---
- General Info Date of Service: 05/30/18 Admission Dx/Problem (Free Text): Patient is doing well. Still has a hard collar on and requires tramadol for pain. She is excited to go home although worried that she will overdo it. No other concerns. - Patient Data Vitals - Most Recent: Last Vital Signs Temp 97.8 F 05/29/18 08:00 Pulse 67 05/29/18 08:00 Resp 18 05/29/18 08:00 BP 147/58 H 05/29/18 09:43 Pulse Ox 99 05/29/18 08:00 Weight - Most Recent: 168 lb 8 oz Lab Results Last 24 Hours: Laboratory Results - last 24 hr 05/30/18 Range/Units 06:05 PT 29.3 H (8.7-11.1) INR 3.05 H (0.89-1.13) Med Orders - Current: Current Medications Acetaminophen (Tylenol Extra Strength) 1,000 mg PO Q8H [facility] Last Admin: 05/30/18 05:43 Dose: 1,000 mg Amlodipine Besylate (Norvasc) 5 mg PO DAILY [facility] Last Admin: 05/29/18 09:43 Dose: 5 mg Buspirone HCl (Buspar) 5 mg PO BID [facility] Last Admin: 05/29/18 20:35 Dose: 5 mg Cholecalciferol (Vitamin D3) 1,000 units PO DAILY [facility] Last Admin: 05/29/18 09:44 Dose: 1,000 units Coenzyme Q10 (Coenzyme Q10) 100 mg PO DAILY [facility] Last Admin: 05/29/18 09:40 Dose: 100 mg Famotidine (Pepcid) 20 mg PO Q48H [facility] Last Admin: 05/29/18 09:44 Dose: 20 mg Folic Acid (Folic Acid) 1.2 mg PO DAILY [facility] Last Admin: 05/29/18 09:41 Dose: 1.2 mg Gabapentin (Neurontin) 300 mg PO TID [facility] Last Admin: 05/29/18 20:36 Dose: 300 mg Losartan Potassium (Cozaar) 100 mg PO DAILY [facility] Last Admin: 05/29/18 09:41 Dose: 100 mg Lutein (Lutein) 20 mg PO DAILY [facility] Last Admin: 05/29/18 09:42 Dose: 20 mg Magnesium Hydroxide (Milk Of Magnesia) 30 ml PO DAILY PRN PRN Reason: Constipation Last Admin: 04/18/18 04:18 Dose: 30 ml Magnesium Oxide (Magnesium Oxide) 200 mg PO BEDTIME [facility] Last Admin: 05/29/18 20:35 Dose: 200 mg Melatonin (Melatonin) 9 mg PO BEDTIME [facility] Last Admin: 05/29/18 20:36 Dose: 9 mg Multivitamins/Minerals/Vitamin C (Tab-A-Champ) 1 tab PO BID [facility] Last Admin: 05/29/18 20:36 Dose: 1 tab Exenatide Microspheres [ Bydureon Pen] 2 Mg * Ptom 2 mg SQ We@0900 [facility] Last Admin: 05/23/18 13:15 Dose: 2 mg Non-Formulary Medication (Potassium [Potassium]) 99 mg PO BID [facility] Polyethylene Glycol (Miralax) 17 gm PO DAILY [facility] Last Admin: 05/29/18 09:42 Dose: 17 gm Saccharomyces Boulardii (Florastor) 250 mg PO DAILY [facility] Last Admin: 05/29/18 09:41 Dose: 250 mg Simvastatin (Zocor) 20 mg PO BEDTIME [facility] Last Admin: 05/29/18 20:38 Dose: 20 mg Tramadol HCl (Ultram) 100 mg PO BEDTIME [facility] Last Admin: 05/29/18 20:37 Dose: 100 mg Tramadol HCl (Ultram) 50 mg PO BID PRN PRN Reason: Pain Last Admin: 05/30/18 07:59 Dose: 50 mg Warfarin Sodium (Coumadin Sliding Scale) 1 each PO ASDIRECTED [facility] Warfarin Sodium (Coumadin) 5 mg PO DAILY@1600 [facility] Last Admin: 05/29/18 18:42 Dose: 5 mg Discontinued Medications Acetaminophen (Tylenol) 650 mg PO Q4H PRN PRN Reason: break through pain Last Admin: 04/20/18 04:26 Dose: 650 mg Acetaminophen (Tylenol Extra Strength) 1,000 mg PO Q8H [facility] Last Admin: 04/20/18 08:25 Dose: 1,000 mg Acetaminophen/Diphenhydramine HCl (Tylenol Pm Extra Strength) 1 tab PO BEDTIME PRN PRN Reason: Sleep Last Admin: 04/17/18 22:44 Dose: 1 tab Buspirone HCl (Buspar) 5 mg PO BID [facility] Last Admin: 04/25/18 20:05 Dose: 5 mg Celecoxib (Celebrex) 200 mg PO BID [facility] Last Admin: 04/20/18 08:01 Dose: 200 mg Gabapentin (Neurontin) 200 mg PO DAILY [facility] Last Admin: 04/20/18 08:20 Dose: 200 mg Gabapentin (Neurontin) 300 mg PO BEDTIME [facility] Last Admin: 04/19/18 20:41 Dose: 300 mg Hydrochlorothiazide (Hydrochlorothiazide) 12.5 mg PO DAILY [facility] Last Admin: 04/20/18 08:05 Dose: 12.5 mg Lidocaine (Lidoderm 5%) 700 mg TOP DAILY [facility] Last Admin: 04/26/18 08:28 Dose: Not Given Lidocaine (Lidoderm 5%) 700 mg TRDERM DAILY [facility] Last Admin: 04/26/18 08:28 Dose: Not Given Lidocaine (Lidoderm 5%) 700 mg TOP BEDTIME [facility] Last Admin: 05/01/18 20:23 Dose: 700 mg Lidocaine (Lidoderm 5%) 700 mg TRDERM BEDTIME [facility] Last Admin: 05/21/18 21:24 Dose: 700 mg Lidocaine (Lidoderm 5%) 700 mg TOP Q24H [facility] Stop: 05/22/18 21:00 Last Admin: 05/22/18 08:13 Dose: 700 mg Magnesium Citrate (Citrate Of Magnesia) 296 ml PO ONETIME ONE Stop: 04/18/18 08:32 Last Admin: 04/18/18 08:44 Dose: 296 ml Magnesium Hydroxide (Milk Of Magnesia) 30 ml PO ONETIME ONE Stop: 04/18/18 08:41 Last Admin: 04/18/18 08:40 Dose: 30 ml Miscellaneous Information (Remove Patch) 1 ea TRDERM BEDTIME [facility] Last Admin: 04/25/18 20:06 Dose: 1 ea Miscellaneous Information (Remove Patch) 1 ea TRDERM BEDTIME [facility] Last Admin: 04/25/18 20:07 Dose: 1 ea Miscellaneous Information (Remove Patch) 1 ea TRDERM DAILY [facility] Last Admin: 05/22/18 08:09 Dose: 1 ea Miscellaneous Information (Remove Patch) 1 ea TRDERM DAILY [facility] Last Admin: 05/02/18 08:06 Dose: 1 ea Miscellaneous Information (Remove Patch) 1 ea TRDERM BEDTIME [facility] Stop: 05/22/18 23:00 Last Admin: 05/22/18 21:16 Dose: 1 ea Naproxen (Naprosyn) 500 mg PO Q12HR [facility] Oxycodone HCl (Oxycodone) 5 mg PO Q6H PRN PRN Reason: Pain Last Admin: 04/18/18 08:41 Dose: 5 mg Pantoprazole Sodium (Protonix) 40 mg PO Q48H [facility] Last Admin: 04/26/18 06:58 Dose: 40 mg Pantoprazole Sodium (Protonix) 40 mg PO Q48H [facility] Last Admin: 05/18/18 05:56 Dose: 40 mg Tramadol HCl (Ultram) 50 mg PO Q6H PRN PRN Reason: Pain Last Admin: 05/01/18 04:13 Dose: 50 mg Tramadol HCl (Ultram) 50 mg PO TID [facility] Tramadol HCl (Ultram) 50 mg PO TID [facility] Last Admin: 05/01/18 18:42 Dose: Not Given Tramadol HCl (Ultram) 50 mg PO TID [facility] Last Admin: 05/01/18 18:43 Dose: Not Given Tramadol HCl (Ultram) 50 mg PO TID PRN PRN Reason: Pain Last Admin: 05/03/18 15:48 Dose: 50 mg Tramadol HCl (Ultram) 50 - 100 mg PO Q4H PRN PRN Reason: Pain Tramadol HCl (Ultram) 50 - 100 mg PO Q12H PRN PRN Reason: Pain Last Admin: 05/10/18 02:10 Dose: 50 mg Warfarin Sodium (Coumadin) 5 mg PO DAILY@1600 [facility] Last Admin: 04/22/18 17:05 Dose: 5 mg Warfarin Sodium (Coumadin) 5 mg PO 1600 [facility] Last Admin: 04/30/18 15:20 Dose: 5 mg Warfarin Sodium 5 mg/ Warfarin (Sodium 2.5 mg) 7.5 mg PO ONETIME ONE Stop: 04/23/18 16:01 Last Admin: 04/23/18 16:48 Dose: 7.5 mg Warfarin Sodium (Coumadin) 5 mg PO SuTuWeFrSa@1600 [facility] Last Admin: 05/06/18 15:33 Dose: 5 mg Warfarin Sodium (Coumadin) 2.5 mg PO MoTh@1600 [facility] Last Admin: 05/03/18 15:44 Dose: 2.5 mg Warfarin Sodium (Coumadin) 2.5 mg PO ONETIME ONE Stop: 05/08/18 16:01 Last Admin: 05/08/18 18:31 Dose: 2.5 mg Warfarin Sodium (Coumadin) 5 mg PO 05/09/18@1600 [facility] Stop: 05/09/18 16:30 Last Admin: 05/09/18 16:08 Dose: 5 mg Warfarin Sodium (Coumadin) 5 mg PO 05/10/18@1600 [facility] Stop: 05/10/18 16:30 Last Admin: 05/10/18 17:34 Dose: 5 mg Warfarin Sodium (Coumadin) 5 mg PO DAILY@1600 [facility] Last Admin: 05/12/18 15:55 Dose: 5 mg Warfarin Sodium (Coumadin) 2.5 mg PO ONETIME ONE Stop: 05/13/18 16:01 Last Admin: 05/13/18 17:15 Dose: 2.5 mg Warfarin Sodium (Coumadin) 2.5 mg PO ONETIME ONE Stop: 05/14/18 16:01 Last Admin: 05/14/18 16:13 Dose: 2.5 mg Warfarin Sodium (Coumadin) 5 mg PO ONETIME ONE Stop: 05/15/18 16:01 Last Admin: 05/15/18 17:05 Dose: 5 mg Warfarin Sodium (Coumadin) 5 mg PO SuTuWeFrSa [facility] Last Admin: 05/26/18 20:25 Dose: 5 mg Warfarin Sodium (Coumadin) 2.5 mg PO MoTh [facility] Last Admin: 05/24/18 16:25 Dose: 2.5 mg Warfarin Sodium (Coumadin) 7.5 mg PO ONETIME ONE Stop: 05/27/18 16:01 Last Admin: 05/27/18 16:58 Dose: 7.5 mg - Exam General: Alert, Oriented Neck: Other (Hard collar) - Problem List & Annotations (1) Cervical vertebral fusion SNOMED Code(s): 789080993 Code(s): M43.22 - FUSION OF SPINE, CERVICAL REGION Status: Acute Current Visit: Yes Annotation/Comment:: We'll increase gabapentin to 300 mg 3 times a day to see if this gives improved pain management. Continue tramadol. PT and OT to continue to work with the patient for both her cervical spine and lumbar spine with postsurgical precautions. (2) S/P lumbar spinal fusion SNOMED Code(s): 96527067602873, 95177448, [id number] Code(s): Z98.1 - ARTHRODESIS STATUS Status: Acute Current Visit: No Annotation/Comment:: See above. (3) Chronic anticoagulation SNOMED Code(s): 701497539 Code(s): Z79.01 - HEEL [employer] (CURRENT) USE OF ANTICOAGULANTS Status: Chronic Current Visit: No Annotation/Comment:: Hold until 04/21/18 at which point warfarin can be restarted with the plan to drift up gradually so patient will be fully anticoagulated around postoperative day #10. (4) Hypertension SNOMED Code(s): 32559106 Code(s): I10 - ESSENTIAL (PRIMARY) HYPERTENSION Status: Chronic Current Visit: No Annotation/Comment:: Was running a little high this morning. We'll monitor. (5) Type 2 diabetes mellitus SNOMED Code(s): 77384514 Code(s): E11.9 - TYPE 2 DIABETES MELLITUS WITHOUT COMPLICATIONS Status: Chronic Current Visit: No Annotation/Comment:: Currently on exenatide once weekly and got a dose yesterday 04/19. Blood sugars have been under 150 and will continue to monitor. (6) Constipation SNOMED Code(s): 83027975 Code(s): K59.00 - CONSTIPATION, UNSPECIFIED Status: Acute Current Visit: Yes Annotation/Comment:: Now with loose stools. Scheduled MiraLAX each day and then added when necessary docusate sodium and patient can decline the MiraLAX if she feels she is becoming too loose. - Problem List Review Problem List Initiated/Reviewed/Updated: Yes - Plan Plan:: 1. Discharge to home with PT/OT 2. Recheck with Dr. Cuevas in 1 week with her INR. 3. Recheck with Dr. Higuera in early June at a previously scheduled appointment.
--- NOTE | 2018-05-30 08:31 | PCM.DCSUM1 ---
Discharge Summary - Hospital Course Free Text/Narrative:: Hospital course-patient was placed in swing bed for rehabilitation. She had a hard collar on per she had 2 surgeries 1 her neck and her low back. Her pain was controlled with tramadol 100 mg at at bedtime and 50 mg twice a day. She did well with her physical therapy although slow and she improved. She continued have the hard collar on. She had no significant adverse events will she was in swing bed and progressed to the point where she could go home with home health, PT/OT. She'll follow-up with Dr. Cuevas in 1 week with an INR. Her INR was controlled 5 mg of Coumadin a day. And she'll follow-up with Dr. Barney Higuera proximally June 20. She has the appointment made and knows it herself. Brief History: This is a 77-year-old female patient is transferred from [place] after having spinal fusion and then a couple days later a low back fusion. Patient was on Coumadin and did bridging. Apparently a aorta filter was placed for the surgery because she has history of bilateral PEs. She has little pain in her neck and back but this bearable. She has not moved her bowels in 7 days but is passing gas. She says she does have some neuropathy that they think is coming from her low back and that's in her legs. She has no other issues today. Diagnosis: Stroke: No - Discharge Data Discharge Date: 05/30/18 Discharge Disposition: Home, Self-Care 01 Condition: Good - Discharge Diagnosis/Problem(s) (1) Cervical vertebral fusion SNOMED Code(s): 728718769 ICD Code: M43.22 - FUSION OF SPINE, CERVICAL REGION Status: Acute Current Visit: Yes Problem Details: We'll increase gabapentin to 300 mg 3 times a day to see if this gives improved pain management. Continue tramadol. PT and OT to continue to work with the patient for both her cervical spine and lumbar spine with postsurgical precautions. (2) S/P lumbar spinal fusion SNOMED Code(s): 75007133155132, [id number], [id number] ICD Code: Z98.1 - ARTHRODESIS STATUS Status: Acute Current Visit: No Problem Details: See above. (3) Chronic anticoagulation SNOMED Code(s): 686394365 ICD Code: Z79.01 - [facility] (CURRENT) USE OF ANTICOAGULANTS Status: Chronic Current Visit: No Problem Details: Hold until 04/21/18 at which point warfarin can be restarted with the plan to drift up gradually so patient will be fully anticoagulated around postoperative day #10. (4) Hypertension SNOMED Code(s): 36804078 ICD Code: I10 - ESSENTIAL (PRIMARY) HYPERTENSION Status: Chronic Current Visit: No Problem Details: Was running a little high this morning. We'll monitor. (5) Type 2 diabetes mellitus SNOMED Code(s): 78021489 ICD Code: E11.9 - TYPE 2 DIABETES MELLITUS WITHOUT COMPLICATIONS Status: Chronic Current Visit: No Problem Details: Currently on exenatide once weekly and got a dose yesterday 04/19. Blood sugars have been under 150 and will continue to monitor. (6) Constipation SNOMED Code(s): 36131296 ICD Code: K59.00 - CONSTIPATION, UNSPECIFIED Status: Acute Current Visit : Yes Problem Details: Now with loose stools. Scheduled MiraLAX each day and then added when necessary docusate sodium and patient can decline the MiraLAX if she feels she is becoming too loose. - Patient Summary/Data Consults: Consultations 04/16/18 17:07 OT Evaluation and Treatment [CONS] Routine Please Evaluate and Treat. OT Reason for Consult: Discharge Planning This query below is only for informational purposes and is not editable. PT Evaluation and Treatment [CONS] Routine Please Evaluate and Treat. PT Reason for Consult: Strengthening This query below is only for informational purposes and is not editable. 05/09/18 10:46 Consult to Physical Therapy [PT Evaluation and Treatment] [CONS] Routine Please Evaluate and Treat. PT Reason for Consult: Other (Type Response) Special Instructions: NO UPPER EXTREMITY EXERCISES FOR 6 WEEKS TIL SEEN BY DUE TO LOOSE HARDWARE. This query below is only for informational purposes and is not editable. Admission Diagnosis/Problem: Cervical vertebral fusion - Patient Instructions Diet: Regular Diet as Tolerated Activity: As Tolerated Driving: Do Not Drive Showering/Bathing: May Shower Notify Provider of: Increased Pain Other/Special Instructions: 1. Recheck with Dr. Cuevas in 1 week with an INR. 2. Recheck with Dr. Higuera in the beginning of June. Previous appointment already made. 3. Continue hard collar until she sees Dr. Higuera. 4. Home health/PT/OT for medication management, home safety, adaptive devices, strengthening, ADLs. - Discharge Plan Prescriptions/Med Rec: amLODIPine Besylate [Norvasc] 5 mg PO DAILY #90 tablet Gabapentin 300 mg PO TID #90 ml Ranitidine HCl [Zantac] 150 mg PO Q48H #45 tablet traMADol [Ultram] 50 mg PO Q6H PRN #120 tablet PRN Reason: Pain Home Medications: Home Meds Hydrochlorothiazide 12.5 mg PO DAILY 02/10/13 [History] Losartan [Cozaar] 100 mg PO DAILY 02/10/13 [History] Omeprazole 20 mg PO Q48H 02/10/13 [History] Exenatide Microspheres [Bydureon Pen] 2 mg SQ TU@0900 12/20/13 [History] Cholecalciferol (Vitamin D3) [Vitamin D3] 1,000 unit PO DAILY 11/02/15 [History] Multivitamin [Multi-Vitamin Daily] 1 tab PO BID 11/02/15 [History] Potassium 99 mg PO BID 11/02/15 [History] Ubidecarenone [Coenzyme Q10] 100 mg PO DAILY 11/02/15 [History] Acetaminophen/Diphenhydramine [Tylenol Pm Ex-Strength Caplet] 1 - 2 each PO BEDTIME PRN 04/16/18 [History] Folic Acid 1.2 mg PO DAILY 04/16/18 [History] L.acidoph,Paracasei, B.lactis [Probiotic] 1 cap PO DAILY 04/16/18 [History] Lutein 20 mg PO DAILY 04/16/18 [History] Magnesium 200 mg PO BEDTIME 04/16/18 [History] Simvastatin 20 mg PO BEDTIME 04/16/18 [History] Warfarin [Coumadin] 5 mg PO DAILY 05/29/18 [History] Gabapentin 300 mg PO TID #90 ml 05/30/18 [Rx] Ranitidine HCl [Zantac] 150 mg PO Q48H #45 tablet 05/30/18 [Rx] amLODIPine Besylate [Norvasc] 5 mg PO DAILY #90 tablet 05/30/18 [Rx] traMADol [Ultram] 50 mg PO Q6H PRN #120 tablet 05/30/18 [Rx] Patient Handouts: Back Pain, Adult, Fall Prevention in Hospitals, Adult, Venous Thromboembolism Prevention - Discharge Summary/Plan Comment DC Time >30 min.: Yes - Patient Data Vitals - Most Recent: Last Vital Signs Temp 97.8 F 05/29/18 08:00 Pulse 67 05/29/18 08:00 Resp 18 05/29/18 08:00 BP 147/58 H 05/29/18 09:43 Pulse Ox 99 05/29/18 08:00 Weight - Most Recent: 168 lb 8 oz Lab Results - Last 24 hrs: Laboratory Results - last 24 hr 05/30/18 Range/Units 06:05 PT 29.3 H (8.7-11.1) INR 3.05 H (0.89-1.13) Med Orders - Current: Current Medications Acetaminophen (Tylenol Extra Strength) 1,000 mg PO Q8H [facility] Last Admin: 05/30/18 05:43 Dose: 1,000 mg Amlodipine Besylate (Norvasc) 5 mg PO DAILY [facility] Last Admin: 05/29/18 09:43 Dose: 5 mg Buspirone HCl (Buspar) 5 mg PO BID [facility] Last Admin: 05/29/18 20:35 Dose: 5 mg Cholecalciferol (Vitamin D3) 1,000 units PO DAILY [facility] Last Admin: 05/29/18 09:44 Dose: 1,000 units Coenzyme Q10 (Coenzyme Q10) 100 mg PO DAILY [facility] Last Admin: 05/29/18 09:40 Dose: 100 mg Famotidine (Pepcid) 20 mg PO Q48H [facility] Last Admin: 05/29/18 09:44 Dose: 20 mg Folic Acid (Folic Acid) 1.2 mg PO DAILY [facility] Last Admin: 05/29/18 09:41 Dose: 1.2 mg Gabapentin (Neurontin) 300 mg PO TID [facility] Last Admin: 05/29/18 20:36 Dose: 300 mg Losartan Potassium (Cozaar) 100 mg PO DAILY [facility] Last Admin: 05/29/18 09:41 Dose: 100 mg Lutein (Lutein) 20 mg PO DAILY [facility] Last Admin: 05/29/18 09:42 Dose: 20 mg Magnesium Hydroxide (Milk Of Magnesia) 30 ml PO DAILY PRN PRN Reason: Constipation Last Admin: 04/18/18 04:18 Dose: 30 ml Magnesium Oxide (Magnesium Oxide) 200 mg PO BEDTIME [facility] Last Admin: 05/29/18 20:35 Dose: 200 mg Melatonin (Melatonin) 9 mg PO BEDTIME [facility] Last Admin: 05/29/18 20:36 Dose: 9 mg Multivitamins/Minerals/Vitamin C (Tab-A-Champ) 1 tab PO BID [facility] Last Admin: 05/29/18 20:36 Dose: 1 tab Exenatide Microspheres [ Bydureon Pen] 2 Mg * Ptom 2 mg SQ We@0900 [facility] Last Admin: 05/23/18 13:15 Dose: 2 mg Non-Formulary Medication (Potassium [Potassium]) 99 mg PO BID [facility] Polyethylene Glycol (Miralax) 17 gm PO DAILY [facility] Last Admin: 05/29/18 09:42 Dose: 17 gm Saccharomyces Boulardii (Florastor) 250 mg PO DAILY [facility] Last Admin: 05/29/18 09:41 Dose: 250 mg Simvastatin (Zocor) 20 mg PO BEDTIME [facility] Last Admin: 05/29/18 20:38 Dose: 20 mg Tramadol HCl (Ultram) 100 mg PO BEDTIME [facility] Last Admin: 05/29/18 20:37 Dose: 100 mg Tramadol HCl (Ultram) 50 mg PO BID PRN PRN Reason: Pain Last Admin: 05/30/18 07:59 Dose: 50 mg Warfarin Sodium (Coumadin Sliding Scale) 1 each PO ASDIRECTED [facility] Warfarin Sodium (Coumadin) 5 mg PO DAILY@1600 [facility] Last Admin: 05/29/18 18:42 Dose: 5 mg Discontinued Medications Acetaminophen (Tylenol) 650 mg PO Q4H PRN PRN Reason: break through pain Last Admin: 04/20/18 04:26 Dose: 650 mg Acetaminophen (Tylenol Extra Strength) 1,000 mg PO Q8H [facility] Last Admin: 04/20/18 08:25 Dose: 1,000 mg Acetaminophen/Diphenhydramine HCl (Tylenol Pm Extra Strength) 1 tab PO BEDTIME PRN PRN Reason: Sleep Last Admin: 04/17/18 22:44 Dose: 1 tab Buspirone HCl (Buspar) 5 mg PO BID [facility] Last Admin: 04/25/18 20:05 Dose: 5 mg Celecoxib (Celebrex) 200 mg PO BID [facility] Last Admin: 04/20/18 08:01 Dose: 200 mg Gabapentin (Neurontin) 200 mg PO DAILY [facility] Last Admin: 04/20/18 08:20 Dose: 200 mg Gabapentin (Neurontin) 300 mg PO BEDTIME [facility] Last Admin: 04/19/18 20:41 Dose: 300 mg Hydrochlorothiazide (Hydrochlorothiazide) 12.5 mg PO DAILY [facility] Last Admin: 04/20/18 08:05 Dose: 12.5 mg Lidocaine (Lidoderm 5%) 700 mg TOP DAILY [facility] Last Admin: 04/26/18 08:28 Dose: Not Given Lidocaine (Lidoderm 5%) 700 mg TRDERM DAILY [facility] Last Admin: 04/26/18 08:28 Dose: Not Given Lidocaine (Lidoderm 5%) 700 mg TOP BEDTIME [facility] Last Admin: 05/01/18 20:23 Dose: 700 mg Lidocaine (Lidoderm 5%) 700 mg TRDERM BEDTIME [facility] Last Admin: 05/21/18 21:24 Dose: 700 mg Lidocaine (Lidoderm 5%) 700 mg TOP Q24H [facility] Stop: 05/22/18 21:00 Last Admin: 05/22/18 08:13 Dose: 700 mg Magnesium Citrate (Citrate Of Magnesia) 296 ml PO ONETIME ONE Stop: 04/18/18 08:32 Last Admin: 04/18/18 08:44 Dose: 296 ml Magnesium Hydroxide (Milk Of Magnesia) 30 ml PO ONETIME ONE Stop: 04/18/18 08:41 Last Admin: 04/18/18 08:40 Dose: 30 ml Miscellaneous Information (Remove Patch) 1 ea TRDERM BEDTIME [facility] Last Admin: 04/25/18 20:06 Dose: 1 ea Miscellaneous Information (Remove Patch) 1 ea TRDERM BEDTIME [facility] Last Admin: 04/25/18 20:07 Dose: 1 ea Miscellaneous Information (Remove Patch) 1 ea TRDERM DAILY [facility] Last Admin: 05/22/18 08:09 Dose: 1 ea Miscellaneous Information (Remove Patch) 1 ea TRDERM DAILY [facility] Last Admin: 05/02/18 08:06 Dose: 1 ea Miscellaneous Information (Remove Patch) 1 ea TRDERM BEDTIME [facility] Stop: 05/22/18 23:00 Last Admin: 05/22/18 21:16 Dose: 1 ea Naproxen (Naprosyn) 500 mg PO Q12HR [facility] Oxycodone HCl (Oxycodone) 5 mg PO Q6H PRN PRN Reason: Pain Last Admin: 04/18/18 08:41 Dose: 5 mg Pantoprazole Sodium (Protonix) 40 mg PO Q48H [facility] Last Admin: 04/26/18 06:58 Dose: 40 mg Pantoprazole Sodium (Protonix) 40 mg PO Q48H [facility] Last Admin: 05/18/18 05:56 Dose: 40 mg Tramadol HCl (Ultram) 50 mg PO Q6H PRN PRN Reason: Pain Last Admin: 05/01/18 04:13 Dose: 50 mg Tramadol HCl (Ultram) 50 mg PO TID [facility] Tramadol HCl (Ultram) 50 mg PO TID [facility] Last Admin: 05/01/18 18:42 Dose: Not Given Tramadol HCl (Ultram) 50 mg PO TID [facility] Last Admin: 05/01/18 18:43 Dose: Not Given Tramadol HCl (Ultram) 50 mg PO TID PRN PRN Reason: Pain Last Admin: 05/03/18 15:48 Dose: 50 mg Tramadol HCl (Ultram) 50 - 100 mg PO Q4H PRN PRN Reason: Pain Tramadol HCl (Ultram) 50 - 100 mg PO Q12H PRN PRN Reason: Pain Last Admin: 05/10/18 02:10 Dose: 50 mg Warfarin Sodium (Coumadin) 5 mg PO DAILY@1600 [facility] Last Admin: 04/22/18 17:05 Dose: 5 mg Warfarin Sodium (Coumadin) 5 mg PO 1600 [facility] Last Admin: 04/30/18 15:20 Dose: 5 mg Warfarin Sodium 5 mg/ Warfarin (Sodium 2.5 mg) 7.5 mg PO ONETIME ONE Stop: 04/23/18 16:01 Last Admin: 04/23/18 16:48 Dose: 7.5 mg Warfarin Sodium (Coumadin) 5 mg PO SuTuWeFrSa@1600 [facility] Last Admin: 05/06/18 15:33 Dose: 5 mg Warfarin Sodium (Coumadin) 2.5 mg PO MoTh@1600 [facility] Last Admin: 05/03/18 15:44 Dose: 2.5 mg Warfarin Sodium (Coumadin) 2.5 mg PO ONETIME ONE Stop: 05/08/18 16:01 Last Admin: 05/08/18 18:31 Dose: 2.5 mg Warfarin Sodium (Coumadin) 5 mg PO 05/09/18@1600 [facility] Stop: 05/09/18 16:30 Last Admin: 05/09/18 16:08 Dose: 5 mg Warfarin Sodium (Coumadin) 5 mg PO 05/10/18@1600 [facility] Stop: 05/10/18 16:30 Last Admin: 05/10/18 17:34 Dose: 5 mg Warfarin Sodium (Coumadin) 5 mg PO DAILY@1600 [facility] Last Admin: 05/12/18 15:55 Dose: 5 mg Warfarin Sodium (Coumadin) 2.5 mg PO ONETIME ONE Stop: 05/13/18 16:01 Last Admin: 05/13/18 17:15 Dose: 2.5 mg Warfarin Sodium (Coumadin) 2.5 mg PO ONETIME ONE Stop: 05/14/18 16:01 Last Admin: 05/14/18 16:13 Dose: 2.5 mg Warfarin Sodium (Coumadin) 5 mg PO ONETIME ONE Stop: 05/15/18 16:01 Last Admin: 05/15/18 17:05 Dose: 5 mg Warfarin Sodium (Coumadin) 5 mg PO MiriamuWeFMarisa [facility] Last Admin: 05/26/18 20:25 Dose: 5 mg Warfarin Sodium (Coumadin) 2.5 mg PO [facility] Last Admin: 05/24/18 16:25 Dose: 2.5 mg Warfarin Sodium (Coumadin) 7.5 mg PO ONETIME ONE Stop: 05/27/18 16:01 Last Admin: 05/27/18 16:58 Dose: 7.5 mg
[2018-05-30 08:46] VITALS: BP 145/61
[2018-05-30] MEDS: busPIRone 10 MG Tab PO SCH (08:54)
[2018-05-30] MEDS: Saccharomyces Boulardii (Probiotic) 250 MG Cap PO SCH (08:59)
[2018-05-30] MEDS: Losartan 100 MG Tab PO SCH (08:59)
[2018-05-30] MEDS: Cholecalciferol (Vitamin D3) 1,000 Unit Tab PO SCH (09:00)
[2018-05-30] MEDS: Multivitamin Tab PO SCH (09:00)
[2018-05-30] MEDS: amLODIPine 5 MG Tab PO SCH (09:00)
[2018-05-30] MEDS: Gabapentin 300 MG Cap PO SCH ×2 (09:00→13:21)
[2018-05-30] MEDS: Folic Acid 0.4 MG Tab PO SCH (09:00)
[2018-05-30] MEDS: EXENATIDE MICROSPHERES 2 MG SQ SCH (09:03)
[2018-05-30] MEDS: Polyethylene Glycol 3350 Powder 17 GM Packet PO SCH (09:04)
== END 2018-05-30 13:44 | disposition home health service (06) | DRG 552 ==
LOC: FB.MS 15:37
PROVIDERS: ADMIT Family Medicine; ATTEND Family Medicine
DX: M43.22 Fusion of spine, cervical region (principal); M43.26 Fusion of spine, lumbar region; Z98.1 Arthrodesis status; Z66 Do not resuscitate; Z98.890 Other specified postprocedural states; M54.5 Low back pain; M54.2 Cervicalgia; I10 Essential (primary) hypertension; K21.9 Gastro-esophageal reflux disease without esophagitis; Z86.718 Personal history of other venous thrombosis and embolism; Z86.711 Personal history of pulmonary embolism; E11.40 Type 2 diabetes mellitus with diabetic neuropathy, unspecified; K59.00 Constipation, unspecified; M79.7 Fibromyalgia; M19.90 Unspecified osteoarthritis, unspecified site; F41.9 Anxiety disorder, unspecified; Z79.01 Long term (current) use of anticoagulants; Z88.0 Allergy status to penicillin; Z88.8 Allergy status to other drugs, medicaments and biological substances; Z95.9 Presence of cardiac and vascular implant and graft, unspecified
CPT/HCPCS: 36415; 72125; 72131; 80048; 80053; 82962; 83036; 83735; 84295; 85018; 85025; 85610; 97110-GO; 97110-GP; 97116-GP; 97161-GP; 97165-GO; 97530-GO; 97530-GP; 97535-GO; 97760-GO; A9270-GY

== ENCOUNTER 2018-10-02 16:33 | Observation (INO) | payer MEDICARE, BC ==
--- NOTE | 2018-10-02 17:20 | EDM.PDOC ---
ED HPI GENERAL MEDICAL PROBLEM - General Chief Complaint: Back Pain or Injury Stated Complaint: BACK PAIN Time Seen by Provider: 10/02/18 17:00 Source of Information: Reports: Patient History Limitations: Reports: No Limitations - History of Present Illness INITIAL COMMENTS - FREE TEXT/NARRATIVE: Eugenie Bledsoe comes into [facility] ED by EMS for intractable lower back pain. She has been to [facility] x 3 over the past week for pain managment including epidural steroid injection and opioids. She was discharged from [facility] this am, and home by POV. She is currently taking Hydrocodone 5/325 bid with Gabapentin and Tramadol, and rates her pain as a 10/10 with wt bearing, and currently a 9-10/10 with recumbency following a Hydrocodone about 2 hours ago. She spoke with Dr Cuevas who suggested a swing bed for pain managment pending a decision about further interventions or Pain Clinic consult. - Related Data Allergies Allergy/AdvReac Type Severity Reaction Status Date / Time ibuprofen [From Advil] Allergy Vomiting Verified 09/20/17 20:36 Penicillins Allergy Rash Verified 09/20/17 20:36 pregabalin [From Lyrica] Allergy Edema Verified 09/20/17 20:36 Home Meds: Home Meds Hydrochlorothiazide 12.5 mg PO DAILY 02/10/13 [History] Losartan [Cozaar] 100 mg PO DAILY 02/10/13 [History] Omeprazole 20 mg PO Q48H 02/10/13 [History] Exenatide Microspheres [Bydureon Pen] 2 mg SQ TU@0900 12/20/13 [History] Cholecalciferol (Vitamin D3) [Vitamin D3] 1,000 unit PO DAILY 11/02/15 [History] Multivitamin [Multi-Vitamin Daily] 1 tab PO BID 11/02/15 [History] Potassium 99 mg PO BID 11/02/15 [History] Ubidecarenone [Coenzyme Q10] 100 mg PO DAILY 11/02/15 [History] Acetaminophen/Diphenhydramine [Tylenol Pm Ex-Strength Caplet] 1 - 2 each PO BEDTIME PRN 04/16/18 [History] Folic Acid 1.2 mg PO DAILY 04/16/18 [History] L.acidoph,Paracasei, B.lactis [Probiotic] 1 cap PO DAILY 04/16/18 [History] Lutein 20 mg PO DAILY 04/16/18 [History] Magnesium 200 mg PO BEDTIME 04/16/18 [History] Simvastatin 20 mg PO BEDTIME 04/16/18 [History] Warfarin [Coumadin] 5 mg PO DAILY 05/29/18 [History] Gabapentin 300 mg PO TID #90 ml 05/30/18 [Rx] amLODIPine Besylate [Norvasc] 5 mg PO DAILY #90 tablet 05/30/18 [Rx] raNITIdine HCl [Zantac] 150 mg PO Q48H #45 tablet 05/30/18 [Rx] traMADol [Ultram] 50 mg PO Q6H PRN #120 tablet 05/30/18 [Rx] Past Medical History - Past Health History Medical/Surgical History: Denies Medical/Surgical History HEENT History: Reports: Impaired Vision, Sinusitis, Other (See Below) Other HEENT History: START OF [place] Cardiovascular History: Reports: High Cholesterol, Hypertension Respiratory History: Reports: PE, Other (See Below) Other Respiratory History: PE and infarction Gastrointestinal History: Reports: Colon Polyp, GERD, Hemorrhoids, Other (See Below) Other Gastrointestinal History: internal hemorrohoids Genitourinary History: Reports: UTI, Recurrent [employer] History: Reports: Other (See Below) Other [employer] History: breast/endometrial biopsy; salphingooophorectomy Musculoskeletal History: Reports: Other (See Below) Other Musculoskeletal History: hip bursitis,right. Neurological History: Reports: Neuropathy, Diabetic Other Neuro History: Cold laser tx on bilateral feet: Nov 2016 to Jan 2017 Endocrine/Metabolic History: Reports: Diabetes, Type II - Infectious Disease History Infectious Disease History: Reports: Chicken Pox, Measles, Mumps, Shingles - Past Surgical History HEENT Surgical History: Reports: Oral Surgery Female Surgical History: Reports: Hysterectomy, Tubal Ligation Musculoskeletal Surgical History: Reports: Arthroscopic Knee, Other (See Below) Other Musculoskeletal Surgeries/Procedures:: Bilateral SI fusion: 06-18-16 and Social & Family History - Family History Family Medical History: Noncontributory Cardiac: Reports: Bypass, Hypertension, Other (See Below) Other Cardiac Family History: Quad bypass Neurological: Reports: Dementia Endocrine/Metabolic: Reports: Diabetes, type II Hematologic: Reports: Anemia Oncologic: Reports: Colon, Other (See Below) Other Oncologic Family History: Mesothelioma - Caffeine Use Caffeine Use: Reports: Coffee ED ROS GENERAL - Review of Systems Review Of Systems: ROS reveals no pertinent complaints other than HPI. ED EXAM,LOWER BACK PAIN/INJURY - Physical Exam Exam: See Below Exam Limited By: Physical Impairment (back pain) General Appearance: Alert, WD/WN, Anxious, Moderate Distress Eye Exam: Bilateral Eye: EOMI, Normal Inspection, PERRL Ears: Normal External Exam Nose: Normal Inspection Throat/Mouth: Normal Inspection, Normal Lips, Normal Oropharynx, Normal Voice, No Airway Compromise Head: Normocephalic Neck: Normal Inspection, Supple, Non-Tender, Full Range of Motion Respiratory/Chest: Lungs Clear, Normal Breath Sounds, Chest Non-Tender Cardiovascular: Regular Rate, Rhythm, No Edema, No Gallop, No JVD, No Murmur GI/Abdominal: Normal Bowel Sounds, Soft, Non-Tender, No Organomegaly, No Distention, No Mass (Female) Exam: Deferred Rectal (Female) Exam: Deferred Back Exam: Decreased Range of Motion, Paraspinal Tenderness (right), Vertebral Tenderness Extremities: Normal Inspection, Limited Range of Motion (SLR) Neurological: Alert, Normal Dorsiflexion, CN II-XII Intact, Oriented x 3 Psychiatric: Normal Affect, Anxious Skin Exam: Warm, Dry, Intact, Normal Color Lymphatic: No Adenopathy Course - Vital Signs Text/Narrative:: Following assessment, case was discussed with hospitalist who could not endorse admission at this time. I discussed pain managment with Mrs. Chase who remained steadfast in requesting pain managment at the [facility], with issues to be sorted out in the am with hospitalist and PCP. She will be admitted to Observation. Departure - Departure Time of Disposition: 18:12 Disposition: Refer to Observation Condition: Fair Clinical Impression: Back pain Qualifiers: Back pain location: low back pain Chronicity: unspecified Back pain laterality : right Sciatica presence: without sciatica Qualified Code(s): M54.5 - Low back pain - Discharge Information *PRESCRIPTION DRUG MONITORING PROGRAM REVIEWED*: Not Applicable *COPY OF PRESCRIPTION DRUG MONITORING REPORT IN PATIENT [place]: Not Applicable Referrals: Vasyl Cuevas MD [Primary Care Provider] - Forms: ED Department Discharge - Problem List & Annotations (1) Back pain SNOMED Code(s): 976859003 Code(s): M54.9 - DORSALGIA, UNSPECIFIED Status: Acute Annotation/Comment: : Admit to Observation Qualifiers: Back pain location: low back pain Chronicity: unspecified Back pain laterality: right Sciatica presence: without sciatica Qualified Code(s): M54.5 - Low back pain - Problem List Review Problem List Initiated/Reviewed/Updated: Yes - Assessment/Plan Plan: Hospitalist to see in am.
[2018-10-02] MEDS: HYDROmorphone 2 MG/ML SDV IVPUSH SCH (20:30)
[2018-10-02] MEDS: Sodium Chloride 0.9% 10 ML Syringe FLUSH PRN (20:30)
[2018-10-03] MEDS: HYDROmorphone 2 MG/ML SDV IVPUSH SCH (06:57)
[2018-10-03] MEDS: Sodium Chloride 0.9% 10 ML Syringe FLUSH PRN (06:57)
[2018-10-03] MEDS ORDERED: MELATONIN 5 MG PO PRN (08:28)
[2018-10-03] MEDS ORDERED: OMEPRAZOLE 20 MG PO SCH (08:30)
--- NOTE | 2018-10-03 08:36 | PCM.HP ---
H&P History of Present Illness - General Date of Service: 10/03/18 Admit Problem/Dx: Admission Diagnosis/Problem Admission Diagnosis/Problem Back pain Source of Information: Patient, Old Records History Limitations: Reports: Altered Mental Status - History of Present Illness Initial Comments - Free Text/Narative: Eugenie is a 78-year-old female admitted with low back pain. She's had intractable low back pain for has been seen at least 3 times the ER [facility]. She came in by ambulance with uncontrollable pain, and she was unwilling to return home, feeling is unable to walk and pain is uncontrollable. She had epidural injection yesterday. She takes hydrocodone, gabapentin and tramadol. She stays with the was apparently unable to support a fully. She has had a complicated history of back pain, with lumbar fusion in May 12 in [place]. She also has a history of hypertension, type 2 diabetes, diabetic neuropathy that have all been stable. She takes Coumadin because of a previous PEs. back Pain Score (Numeric/FACES): 5 - Related Data Allergies/Adverse Reactions: Allergies Allergy/AdvReac Type Severity Reaction Status Date / Time ibuprofen [From Advil] Allergy Vomiting Verified 09/20/17 20:36 Penicillins Allergy Rash Verified 09/20/17 20:36 pregabalin [From Lyrica] Allergy Edema Verified 09/20/17 20:36 Home Medications: Home Meds Hydrochlorothiazide 12.5 mg PO DAILY 02/10/13 [History] Losartan [Cozaar] 100 mg PO DAILY 02/10/13 [History] Omeprazole 20 mg PO Q48H 02/10/13 [History] Exenatide Microspheres [Bydureon Pen] 2 mg SQ TU@0900 12/20/13 [History] Cholecalciferol (Vitamin D3) [Vitamin D3] 1,000 unit PO DAILY 11/02/15 [History] Multivitamin [Multi-Vitamin Daily] 1 tab PO BID 11/02/15 [History] Potassium 99 mg PO BID 11/02/15 [History] Ubidecarenone [Coenzyme Q10] 100 mg PO DAILY 11/02/15 [History] Acetaminophen/Diphenhydramine [Tylenol Pm Ex-Strength Caplet] 1 each PO BEDTIME PRN 04/16/18 [History] Folic Acid 1.2 mg PO DAILY 04/16/18 [History] Lutein 20 mg PO DAILY 04/16/18 [History] Magnesium 200 mg PO BEDTIME 04/16/18 [History] Warfarin [Coumadin] 5 mg PO SUTUTHFR 05/29/18 [History] Gabapentin 300 mg PO TID #90 ml 05/30/18 [Rx] raNITIdine HCl [Zantac] 150 mg PO Q48H #45 tablet 05/30/18 [Rx] Melatonin 5 mg PO BEDTIME PRN 10/02/18 [History] Warfarin [Coumadin] 2.5 mg PO MOWESA 10/02/18 [History] traMADol [Ultram] 50 mg PO Q12H PRN 10/02/18 [History] Past Medical History - Past Health History Medical/Surgical History: Denies Medical/Surgical History HEENT History: Reports: Impaired Vision, Sinusitis, Other (See Below) Other HEENT History: START OF GLAUCOMA Cardiovascular History: Reports: High Cholesterol, Hypertension Respiratory History: Reports: PE, Other (See Below) Other Respiratory History: PE and infarction Gastrointestinal History: Reports: Colon Polyp, GERD, Hemorrhoids, Other (See Below) Other Gastrointestinal History: internal hemorrohoids Genitourinary History: Reports: UTI, 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 Neurological History: Reports: Neuropathy, Diabetic Other Neuro History: Cold laser tx on bilateral feet: Nov 2016 to Jan 2017 Psychiatric History: Reports: Anxiety, Depression Endocrine/Metabolic History: Reports: Diabetes, Type II - Infectious Disease History Infectious Disease History: Reports: Chicken Pox, Measles, Mumps, Shingles - Past Surgical History HEENT Surgical History: Reports: Oral Surgery Female Surgical History: Reports: Hysterectomy, Tubal Ligation Musculoskeletal Surgical History: Reports: Arthroscopic Knee, Other (See Below) Other Musculoskeletal Surgeries/Procedures:: Bilateral SI fusion: 06-18-16 and Social & Family History - Family History Family Medical History: Noncontributory Cardiac: Reports: Bypass, Hypertension, Other (See Below) Other Cardiac Family History: Quad bypass Neurological: Reports: Dementia Endocrine/Metabolic: Reports: Diabetes, type II Hematologic: Reports: Anemia Oncologic: Reports: Colon, Other (See Below) Other Oncologic Family History: Mesothelioma - Tobacco Use Smoking Status *Q: Former Smoker Years of Tobacco use: 20 Used Tobacco, but Quit: Yes Month/Year Tobacco Last Used: 1979 Second Hand Smoke Exposure: No - Caffeine Use Caffeine Use: Reports: Coffee Other Caffeine Use: 1-2 cups coffee/day - Recreational Drug Use Recreational Drug Use: No H&P Review of Systems - Review of Systems: Review Of Systems: ROS reveals no pertinent complaints other than HPI. Exam - Exam Exam: See Below - Vital Signs Vital Signs: Last Vital Signs Temp 97.7 F 10/02/18 20:00 Pulse 75 10/02/18 20:00 Resp 18 10/02/18 20:00 BP 136/62 10/02/18 20:00 Pulse Ox 98 10/02/18 20:00 Weight: 74.389 kg - Exam General: Alert, Oriented, 4 HEENT: PERRLA, Hearing Intact, Mucosa Moist & [place], Nares Patent, Normal Nasal Septum, Posterior Pharynx Clear, Conjunctiva Clear, EOMI, EACs Clear, TMs Clear Neck: Supple, Trachea Midline, 2 Lungs: Clear to Auscultation, Normal Respiratory Effort Cardiovascular: Systolic Murmur GI/Abdominal Exam: Normal Bowel Sounds, Soft, Non-Tender, No Organomegaly, No Distention, No Abnormal Bruit, No Mass, Pelvis Stable (Female) Exam: Deferred Rectal (Female) Exam: Deferred Back Exam: Normal Inspection, Full Range of Motion, NT Extremities: Normal Inspection, Normal Range of Motion, Non-Tender, No Pedal Edema, Normal Capillary Refill Skin: Warm, Dry, Intact Neurological: Cranial Nerves Intact, Reflexes Equal Bilateral Neuro Extensive - Mental Status: Alert, Oriented x3, Normal Mood/Affect, Normal Cognition Neuro Extensive - Motor, Sensory, Reflexes: CN II-XII Intact, Normal Gait, Normal Reflexes Psychiatric: Alert, Normal Affect, Normal Mood - Patient Data Lab Results Last 24 hrs: Laboratory Results - last 24 hr 10/02/18 10/02/18 10/02/18 Range/Units 18:33 18:33 18:33 WBC 11.5 (4.5-12.0) X10-3/uL RBC 4.65 (3.23-5.20) x10(6)uL Hgb 12.9 (11.5-15.5) g/dL Hct 39.0 (30.0-51.3) % MCV 83.9 (80-96) fL MCH 27.6 L (27.7-33.6) pg MCHC 32.9 (32.2-35.4) g/dL RDW 15.6 H (11.5-15.5) % Plt Count 290 (125-369) X10(3)uL MPV 7.9 (7.4-10.4) fL Neut % (Auto) 85.4 H (46-82) % Lymph % (Auto) 7.2 L (13-37) % Jackson % (Auto) 7.3 (4-12) % Eos % (Auto) 0 L (1.0-5.0) % Baso % (Auto) 0 (0-2) % Neut # (Auto) 9.9 H (1.6-8.3) # Lymph # (Auto) 0.8 (0.6-5.0) # Jackson # (Auto) 0.8 (0.0-1.3) # Eos # (Auto) 0.0 (0.0-0.8) # Baso # (Auto) 0.0 (0.0-0.2) # PT 10.7 (8.7-11.1) INR 1.10 (0.89-1.13) Sodium 141 (135-145) mmol/L Potassium 4.0 (3.5-5.3) mmol/L Chloride 104 (100-110) mmol/L Carbon Dioxide 30 (21-32) mmol/L BUN 36 H D (7-18) mg/dL Creatinine 0.9 (0.55-1.02) mg/dL Est Cr Clr Drug Dosing TNP Estimated GFR (MDRD) > 60 (>60) BUN/Creatinine Ratio 40.0 H (9-20) Glucose 127 H (80-116) mg/dL Calcium 9.6 (8.6-10.2) mg/dL Result Diagrams: 10/02/18 18:33 10/02/18 18:33 - Problem List (1) Acute low back pain SNOMED Code(s): 714206316 ICD Code: M54.5 - LOW BACK PAIN Status: Acute Current Visit: No (2) Ambulatory dysfunction SNOMED Code(s): 577645310 ICD Code: R26.2 - DIFFICULTY IN WALKING, NOT ELSEWHERE CLASSIFIED Status: Acute Current Visit: Yes (3) Anxiety SNOMED Code(s): 19185787 ICD Code: F41.9 - ANXIETY DISORDER, UNSPECIFIED Status: Acute Current Visit: No (4) Constipation SNOMED Code(s): 61301668 ICD Code: K59.00 - CONSTIPATION, UNSPECIFIED Status: Acute Current Visit : No (5) S/P lumbar spinal fusion SNOMED Code(s): 99849374317955, 05245220, 47630029499543 ICD Code: Z98.1 - ARTHRODESIS STATUS Status: Acute Current Visit: No Problem Details: See above. (6) Chronic anticoagulation SNOMED Code(s): 898811433 ICD Code: Z79.01 - SNF (CURRENT) USE OF ANTICOAGULANTS Status: Chronic Current Visit: No (7) Hypertension SNOMED Code(s): 28608104 ICD Code: I10 - ESSENTIAL (PRIMARY) HYPERTENSION Status: Chronic Current Visit: No Problem Details: Was running a little high this morning. We'll monitor. Qualifiers: Hypertension type: essential hypertension Qualified Code(s): I10 - Essential (primary) hypertension (8) Type 2 diabetes mellitus SNOMED Code(s): 60054962 ICD Code: E11.9 - TYPE 2 DIABETES MELLITUS WITHOUT COMPLICATIONS Status: Chronic Current Visit: No Problem Details: Currently on exenatide once weekly and got a dose yesterday 04/19. Blood sugars have been under 150 and will continue to monitor. Problem List Initiated/Reviewed/Updated: Yes Orders Last 24hrs: Active Orders 24 hr Category Date Time Status Patient Status [ADT] Routine ADT 10/02/18 22:36 Active Antiembolic Devices [RC] .Routine Care 10/02/18 18:18 Active Antiembolic Devices [RC] .Routine Care 10/02/18 22:37 Active Bedrest Bedside Commode [RC] ASDIRECTED Care 10/02/18 18:18 Active Pulse Oximetry [RC] PRN Care 10/02/18 18:18 Active VTE/DVT Education [RC] Click to Edit Care 10/02/18 18:18 Active VTE/DVT Education [RC] Click to Edit Care 10/02/18 22:37 Active Vital Signs [RC] 00,04,08,12,16,20 Care 10/02/18 18:18 Active OT Evaluation and Treatment [CONS] Routine Cons 10/03/18 08:28 Ordered PT Evaluation and Treatment [CONS] Routine Cons 10/03/18 08:28 Ordered Regular Diet [DIET] Diet 10/02/18 Dinner Ordered Exenatide Microspheres [Bydureon Pen] Med 10/09/18 09:00 Ordered 2 mg SQ TU@0900 Folic Acid Med 10/03/18 09:00 Ordered 1.2 mg PO DAILY Gabapentin [Gabapentin] Med 10/03/18 09:00 Ordered 300 mg PO TID HYDROmorphone [Dilaudid] Med 10/02/18 18:30 Active 1 mg IVPUSH Q12H Losartan [Cozaar] Med 10/03/18 09:00 Ordered 100 mg PO DAILY Lutein [Lutein] Med 10/03/18 09:00 Ordered 20 mg PO DAILY Magnesium [Magnesium] Med 10/03/18 21:00 Ordered 200 mg PO BEDTIME Melatonin [Melatonin] Med 10/03/18 08:28 Ordered 5 mg PO BEDTIME PRN Multivitamins [Tab-A-Champ] Med 10/03/18 09:00 Ordered 1 tab PO BID Omeprazole [Omeprazole] Med 10/03/18 08:30 Ordered 20 mg PO Q48H Potassium [Potassium] Med 10/03/18 09:00 Ordered 99 mg PO BID Sodium Chloride 0.9% [Saline Flush] Med 10/02/18 18:20 Active 10 ml FLUSH ASDIRECTED PRN Ubidecarenone [Coenzyme Q10] Med 10/03/18 09:00 Ordered 100 mg PO DAILY Warfarin [Coumadin] Med 10/03/18 08:30 Ordered 2.5 mg PO MOWESA Warfarin [Coumadin] Med 10/04/18 08:28 Ordered 5 mg PO SUTUTHFR hydroCHLOROthiazide Med 10/03/18 09:00 Ordered 12.5 mg PO DAILY raNITIdine HCl [Zantac] Med 10/03/18 08:30 Ordered 150 mg PO Q48H traMADol [Ultram] Med 10/03/18 08:28 Ordered 50 mg PO Q12H PRN DVT/VTE Prophylaxis Reflex [OM.PC] Per Unit Routine Oth 10/02/18 18:18 Ordered DVT/VTE Prophylaxis Reflex [OM.PC] Per Unit Routine Oth 10/02/18 22:36 Ordered Peripheral IV Insertion Adult [OM.PC] Routine Oth 10/02/18 18:20 Ordered Resuscitation Status Routine Resus Stat 10/02/18 18:18 Ordered Medication Orders Coenzyme Q10 (Coenzyme Q10) 100 mg PO DAILY [facility] Folic Acid (Folic Acid) 1.2 mg PO DAILY [facility] Hydrochlorothiazide (Hydrochlorothiazide) 12.5 mg PO DAILY [facility] Hydromorphone HCl (Dilaudid) 1 mg IVPUSH Q12H [facility] Last Admin: 10/03/18 06:57 Dose: 1 mg Admin: 10/02/18 20:30 Dose: 1 mg Losartan Potassium (Cozaar) 100 mg PO DAILY [facility] Multivitamins/Minerals/Vitamin C (Tab-A-Champ) 1 tab PO BID [facility] Non-Formulary Medication (Exenatide Microspheres [Bydureon Pen]) 2 mg SQ TU@ 0900 [facility] Non-Formulary Medication (Gabapentin [Gabapentin]) 300 mg PO TID [facility] Non-Formulary Medication (Lutein [Lutein]) 20 mg PO DAILY [facility] Non-Formulary Medication (Magnesium [Magnesium]) 200 mg PO BEDTIME [facility] Non-Formulary Medication (Melatonin [Melatonin]) 5 mg PO BEDTIME PRN PRN Reason: Sleep Non-Formulary Medication (Omeprazole [Omeprazole]) 20 mg PO Q48H [facility] Non-Formulary Medication (Potassium [Potassium]) 99 mg PO BID [facility] Non-Formulary Medication (Ranitidine Hcl [Zantac]) 150 mg PO Q48H [facility] Sodium Chloride (Saline Flush) 10 ml FLUSH ASDIRECTED PRN PRN Reason: Keep Vein Open Last Admin: 10/03/18 06:57 Dose: 10 ml Admin: 10/02/18 20:30 Dose: 10 ml Tramadol HCl (Ultram) 50 mg PO Q12H PRN PRN Reason: Pain Warfarin Sodium (Coumadin) 2.5 mg PO MOWESA [facility] Warfarin Sodium ([facility]) [facility] Assessment/Plan Comment:: 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
[2018-10-03] MEDS ORDERED: LUTEIN 20 MG PO SCH (09:00)
[2018-10-03] MEDS ORDERED: GABAPENTIN 300 MG PO SCH (09:00)
[2018-10-03] MEDS ORDERED: UBIDECARENONE 100 MG PO SCH (09:00)
[2018-10-03] MEDS ORDERED: Folic Acid 0.4 MG Tab PO SCH (09:00)
[2018-10-03] MEDS ORDERED: POTASSIUM 99 MG PO SCH (09:00)
[2018-10-03] MEDS ORDERED: MULTIVITAMIN PO SCH (09:00)
[2018-10-03] MEDS ORDERED: TIZANIDINE 2 MG PO PRN (12:59)
[2018-10-03] MEDS: GABAPENTIN 100 MG PO SCH (13:29)
[2018-10-03] MEDS: HYDROCHLOROTHIAZIDE 12.5 MG PO SCH (13:29)
[2018-10-03] MEDS: LOSARTAN 100 MG PO SCH (13:30)
[2018-10-03] MEDS: ENOXAPARIN 80 MG/0.8 ML SUBCUT SCH ×2 (13:32→22:06)
[2018-10-03] MEDS ORDERED: WARFARIN 5 MG PO SCH (16:00)
[2018-10-03] MEDS: Magnesium Hydroxide 400 MG/5 ML Susp 30 ML Cup PO PRN (16:05)
[2018-10-03] MEDS: traMADol 50 MG Tab PO PRN (16:12)
[2018-10-03] MEDS ORDERED: MAGNESIUM 200 MG PO SCH (21:00)
[2018-10-03] MEDS ORDERED: GABAPENTIN 100 MG PO SCH (21:00)
[2018-10-03] MEDS ORDERED: Acetaminophen 325 MG Tab PO PRN (21:43)
[2018-10-04] MEDS: traMADol 50 MG Tab PO PRN (06:34)
[2018-10-04] MEDS: Magnesium Hydroxide 400 MG/5 ML Susp 30 ML Cup PO PRN (06:40)
[2018-10-04] MEDS ORDERED: RANITIDINE HCL 150 MG PO SCH (08:30)
[2018-10-04] MEDS: LOSARTAN 100 MG PO SCH (08:53)
[2018-10-04] MEDS: HYDROCHLOROTHIAZIDE 12.5 MG PO SCH (08:53)
[2018-10-04] MEDS: GABAPENTIN 100 MG PO SCH (08:53)
[2018-10-04] MEDS: ENOXAPARIN 80 MG/0.8 ML SUBCUT SCH (08:54)
--- NOTE | 2018-10-04 09:05 | PCM.PN ---
- General Info Date of Service: 10/04/18 Subjective Update: Better controlled pain.PT did not pick her up. Functional Status: Reports: Pain Controlled, Tolerating Diet, Ambulating - Review of Systems Pulmonary: Reports: No Symptoms Cardiovascular: Reports: No Symptoms Gastrointestinal: Reports: No Symptoms - Patient Data Vitals - Most Recent: Last Vital Signs Temp 97 F 10/04/18 04:00 Pulse 78 10/04/18 04:00 Resp 18 10/04/18 04:00 BP 128/64 10/04/18 08:53 Pulse Ox 97 10/04/18 04:00 Weight - Most Recent: 74.389 kg Lab Results Last 24 Hours: Laboratory Results - last 24 hr 10/04/18 Range/Units 06:05 PT 11.9 H (8.7-11.1) INR 1.23 H (0.89-1.13) Med Orders - Current: Current Medications Acetaminophen (Tylenol) 650 mg PO Q4H PRN PRN Reason: Pain Last Admin: 10/03/18 22:07 Dose: 650 mg Coenzyme Q10 (Coenzyme Q10) 100 mg PO DAILY [facility] Enoxaparin Sodium (Lovenox) 75 mg SUBCUT BID [facility] Last Admin: 10/04/18 08:54 Dose: 75 mg Folic Acid (Folic Acid) 1.2 mg PO DAILY [facility] Gabapentin (Neurontin) 100 mg PO DAILY [facility] Last Admin: 10/04/18 08:53 Dose: 100 mg Gabapentin (Neurontin) 300 mg PO BEDTIME [facility] Last Admin: 10/03/18 22:05 Dose: 300 mg Hydrochlorothiazide (Hydrochlorothiazide) 12.5 mg PO DAILY [facility] Last Admin: 10/04/18 08:53 Dose: 12.5 mg Losartan Potassium (Cozaar) 100 mg PO DAILY [facility] Last Admin: 10/04/18 08:53 Dose: 100 mg Magnesium Hydroxide (Milk Of Magnesia) 30 ml PO DAILY PRN PRN Reason: Constipation Last Admin: 10/04/18 06:40 Dose: 30 ml Multivitamins/Minerals/Vitamin C (Tab-A-Champ) 1 tab PO BID [facility] Non-Formulary Medication (Exenatide Microspheres [Bydureon Pen]) 2 mg SQ TU@ 0900 [facility] Non-Formulary Medication 1 Each ( Lutein [Lutein] 20 Mg)*Ptom 20 mg PO DAILY [facility] Non-Formulary Medication 1 Each ( Magnesium [Magnesium ] 200 Mg)*Ptom 200 mg PO BEDTIME [facility] Non-Formulary Medication 1 Each ( Melatonin [Melatonin ] 5 Mg)*Ptom 5 mg PO BEDTIME PRN PRN Reason: Sleep Non-Formulary Medication 1 Each ( Omeprazole [ Omeprazole] 20 Mg)* Ptom 20 mg PO Q48H [facility] Last Admin: 10/03/18 13:30 Dose: 20 mg Non-Formulary Medication 1 Each ( Potassium [Potassium ] 99 Mg)*Ptom 99 mg PO BID [facility] Non-Formulary Medication 1 Each ( Ranitidine Hcl [ Zantac] 150 Mg)*Ptom 150 mg PO Q48H [facility] Last Admin: 10/04/18 08:52 Dose: 150 mg Tizanidine 2mg *Ptom 1 each PO Q12H PRN PRN Reason: MUSCLE SPASMS Sodium Chloride (Saline Flush) 10 ml FLUSH ASDIRECTED PRN PRN Reason: Keep Vein Open Last Admin: 10/03/18 06:57 Dose: 10 ml Tramadol HCl (Ultram) 50 mg PO Q12H PRN PRN Reason: Pain Last Admin: 10/04/18 06:34 Dose: 50 mg Warfarin Sodium (Coumadin) 2.5 mg PO MOWESA [facility] Last Admin: 10/03/18 16:04 Dose: 2.5 mg [facility]far[facility] Medications Hydromorphone HCl (Dilaudid) 1 mg IVPUSH Q12H [facility] Last Admin: 10/03/18 06:57 Dose: 1 mg Non-Formulary Medication (Gabapentin [Gabapentin]) 300 mg PO TID [facility] Last Admin: 10/03/18 13:33 Dose: Not Given - Exam General: Alert, Oriented HEENT: Pupils Equal Neck: Supple Lungs: Clear to Auscultation Cardiovascular: Regular Rate - Problem List & Annotations (1) Acute low back pain SNOMED Code(s): 466000957 Code(s): M54.5 - LOW BACK PAIN Status: Acute Current Visit: No (2) Ambulatory dysfunction SNOMED Code(s): 294673564 Code(s): R26.2 - DIFFICULTY IN WALKING, NOT ELSEWHERE CLASSIFIED Status: Acute Current Visit: Yes (3) Anxiety SNOMED Code(s): 12712956 Code(s): F41.9 - ANXIETY DISORDER, UNSPECIFIED Status: Acute Current Visit: No (4) Constipation SNOMED Code(s): 23769783 Code(s): K59.00 - CONSTIPATION, UNSPECIFIED Status: Acute Current Visit: No (5) S/P lumbar spinal fusion SNOMED Code(s): 71691900300188, 98434235, 32321596618166 Code(s): Z98.1 - ARTHRODESIS STATUS Status: Acute Current Visit: No Annotation/Comment:: See above. (6) Chronic anticoagulation SNOMED Code(s): 995760024 Code(s): Z79.01 - LONGTERM (CURRENT) USE OF ANTICOAGULANTS Status: Chronic Current Visit: No (7) Hypertension SNOMED Code(s): 48965322 Code(s): I10 - ESSENTIAL (PRIMARY) HYPERTENSION Status: Chronic Current Visit: No Qualifiers: Hypertension type: essential hypertension Qualified Code(s): I10 - Essential (primary) hypertension Annotation/Comment:: Was running a little high this morning. We'll monitor. (8) Type 2 diabetes mellitus SNOMED Code(s): 66617510 Code(s): E11.9 - TYPE 2 DIABETES MELLITUS WITHOUT COMPLICATIONS Status: Chronic Current Visit: No Annotation/Comment:: Currently on exenatide once weekly and got a dose yesterday 04/19. Blood sugars have been under 150 and will continue to monitor. - Problem List Review Problem List Initiated/Reviewed/Updated: Yes - My Orders Last 24 Hours: My Active Orders 10/03/18 08:28 OT Evaluation and Treatment [CONS] Routine PT Evaluation and Treatment [CONS] Routine Melatonin [Melatonin] 5 mg PO BEDTIME PRN traMADol [Ultram] 50 mg PO Q12H PRN 10/03/18 08:30 Omeprazole [Omeprazole] 20 mg PO Q48H 10/03/18 09:00 Folic Acid 1.2 mg PO DAILY Lutein [Lutein] 20 mg PO DAILY Multivitamins [Tab-A-Champ] 1 tab PO BID Potassium [Potassium] 99 mg PO BID Ubidecarenone [Coenzyme Q10] 100 mg PO DAILY 10/03/18 12:00 Gabapentin [Neurontin] 100 mg PO DAILY Losartan [Cozaar] 100 mg PO DAILY hydroCHLOROthiazide 12.5 mg PO DAILY 10/03/18 12:59 Non-Formulary Medication [NF Drug] 1 each PO Q12H PRN 10/03/18 13:00 Enoxaparin [Lovenox] 75 mg SUBCUT BID 10/03/18 15:51 Magnesium Hydroxide [Milk of Magnesia] 30 ml PO DAILY PRN 10/03/18 16:00 Warfarin [Coumadin] 2.5 mg PO MOWESA 10/03/18 21:00 Gabapentin [Neurontin] 300 mg PO BEDTIME Magnesium [Magnesium] 200 mg PO BEDTIME 10/03/18 21:43 Acetaminophen [Tylenol] 650 mg PO Q4H PRN 10/04/18 08:30 raNITIdine HCl [Zantac] 150 mg PO Q48H 10/04/18 16:00 Warfarin [Coumadin] 5 mg PO SUTUTHFR 10/09/18 09:00 Exenatide Microspheres [Bydureon Pen] 2 mg SQ TU@0900 - Plan Plan:: May DC home. Appreciate PT and OT input!.She has appt with pain management
[2018-10-04 14:22] VITALS: BP 132/62; PULSE 72
[2018-10-04] MEDS ORDERED: WARFARIN 5 MG PO SCH (16:00)
[2018-10-09] MEDS ORDERED: Non-Formulary Medication 1 Each (Exenatide Microspheres [Bydureon Pen] 2 MG) SQ SCH (09:00)
== END 2018-10-04 15:25 | disposition home or self-care (01) ==
LOC: FB.ED 16:33 → FB.MS 18:14
PROVIDERS: ADMIT Family Medicine; ATTEND Family Medicine
DX: M54.5 Low back pain (principal); I10 Essential (primary) hypertension; E11.39 Type 2 diabetes mellitus with other diabetic ophthalmic complication; H42 Glaucoma in diseases classified elsewhere; E78.00 Pure hypercholesterolemia, unspecified; K59.00 Constipation, unspecified; F41.9 Anxiety disorder, unspecified; R26.2 Difficulty in walking, not elsewhere classified; Z98.1 Arthrodesis status; Z88.6 Allergy status to analgesic agent; Z88.0 Allergy status to penicillin; Z88.8 Allergy status to other drugs, medicaments and biological substances; Z87.891 Personal history of nicotine dependence; Z79.84 Long term (current) use of oral hypoglycemic drugs; Z79.01 Long term (current) use of anticoagulants; Z79.899 Other long term (current) drug therapy
CPT/HCPCS: 36415; 80048; 85025; 85610; 96372; 96374; 97161; 99284; A9270; G0378; J1170; J1650

== ENCOUNTER 2019-03-12 21:43 | Emergency (ER) | payer MEDICARE, BC ==
--- NOTE | 2019-03-12 21:58 | EDM.PDOC ---
ED HPI GENERAL MEDICAL PROBLEM - General Stated Complaint: TROUBLE SPEAKING Time Seen by Provider: 03/12/19 21:45 Source of Information: Reports: Patient History Limitations: Reports: No Limitations - History of Present Illness INITIAL COMMENTS - FREE TEXT/NARRATIVE: 78 yo female complains of trouble verbalizing words. This happened about 1hour ago and lasted 30 min.It has now resolved. She had in mind to say bedroom but couldn't say it. her speech was also mumbled. A few days ago,it happened again, and lasted 2 hrs. She has no headache,chest pain or shortness of breath. She has a h/o PE's,and is on mcc anticoagulation. Eugenie also has HTN,DM and HLD,that are stable. - Related Data Allergies Allergy/AdvReac Type Severity Reaction Status Date / Time ibuprofen [From Advil] Allergy Vomiting Verified 09/20/17 20:36 Penicillins Allergy Rash Verified 09/20/17 20:36 pregabalin [From Lyrica] Allergy Edema Verified 09/20/17 20:36 Home Meds: Home Meds Hydrochlorothiazide 12.5 mg PO DAILY 02/10/13 [History] Losartan [Cozaar] 100 mg PO DAILY 02/10/13 [History] Omeprazole 20 mg PO Q48H 02/10/13 [History] Exenatide Microspheres [Bydureon Pen] 2 mg SQ TU@0900 12/20/13 [History] Cholecalciferol (Vitamin D3) [Vitamin D3] 1,000 unit PO DAILY 11/02/15 [History] Multivitamin [Multi-Vitamin Daily] 1 tab PO BID 11/02/15 [History] Potassium 99 mg PO BID 11/02/15 [History] Ubidecarenone [Coenzyme Q10] 100 mg PO DAILY 11/02/15 [History] Acetaminophen/Diphenhydramine [Tylenol Pm Ex-Strength Caplet] 1 each PO BEDTIME PRN 04/16/18 [History] Folic Acid 1.2 mg PO DAILY 04/16/18 [History] Lutein 20 mg PO DAILY 04/16/18 [History] Magnesium 200 mg PO BEDTIME 04/16/18 [History] Warfarin [Coumadin] 5 mg PO SUTUTHSA 05/29/18 [History] raNITIdine HCl [Zantac] 150 mg PO Q48H #45 tablet 05/30/18 [Rx] Melatonin 5 mg PO BEDTIME PRN 10/02/18 [History] Warfarin [Coumadin] 2.5 mg PO MOWEFR 10/02/18 [History] traMADol [Ultram] 50 mg PO Q12H PRN 10/02/18 [History] Gabapentin [Neurontin] 100 mg PO DAILY 10/03/18 [History] Gabapentin [Neurontin] 300 mg PO BEDTIME 10/03/18 [History] Lovastatin 20 mg PO BEDTIME 10/03/18 [History] tiZANidine [Zanaflex] 2 mg PO Q12H PRN 10/03/18 [History] Past Medical History - Past Health History Medical/Surgical History: Denies Medical/Surgical History HEENT History: Reports: Impaired Vision, Sinusitis, Other (See Below) Other HEENT History: START OF [place] Cardiovascular History: Reports: High Cholesterol, Hypertension Respiratory History: Reports: PE, Other (See Below) Other Respiratory History: PE and infarction Gastrointestinal History: Reports: Colon Polyp, GERD, Hemorrhoids, Other (See Below) Other Gastrointestinal History: internal hemorrohoids Genitourinary History: Reports: UTI, Recurrent NURSE'S COMPANION History: Reports: Other (See Below) Other NURSE'S COMPANION History: breast/endometrial biopsy; salphingooophorectomy Musculoskeletal History: Reports: Other (See Below) Other Musculoskeletal History: hip bursitis,right. Neurological History: Reports: Neuropathy, Diabetic Other Neuro History: Cold laser tx on bilateral feet: Nov 2016 to Jan 2017 Psychiatric History: Reports: Anxiety, Depression Endocrine/Metabolic History: Reports: Diabetes, Type II - Infectious Disease History Infectious Disease History: Reports: Chicken Pox, Measles, Mumps, Shingles - Past Surgical History HEENT Surgical History: Reports: Oral Surgery Female Surgical History: Reports: Hysterectomy, Tubal Ligation Musculoskeletal Surgical History: Reports: Arthroscopic Knee, Other (See Below) Other Musculoskeletal Surgeries/Procedures:: Bilateral SI fusion: 06-18-16 and Social & Family History - Family History Family Medical History: Noncontributory Cardiac: Reports: Bypass, Hypertension, Other (See Below) Other Cardiac Family History: Quad bypass Neurological: Reports: Dementia Endocrine/Metabolic: Reports: Diabetes, type II Hematologic: Reports: Anemia Oncologic: Reports: Colon, Other (See Below) Other Oncologic Family History: Mesothelioma - Caffeine Use Caffeine Use: Reports: Coffee Other Caffeine Use: 1-2 cups coffee/day ED ROS GENERAL - Review of Systems Review Of Systems: Comprehensive ROS is negative, except as noted in HPI. ED EXAM, NEURO - Physical Exam Exam: See Below Exam Limited By: No Limitations General Appearance: Alert, WD/WN, No Apparent Distress Ears: Normal External Exam, Normal Canal, Hearing Grossly Normal, Normal TMs Nose: Normal Inspection, Normal Mucosa, No Blood Throat/Mouth: Normal Inspection, Normal Lips, Normal Teeth, Normal Gums, Normal Oropharynx, Normal Voice, No Airway Compromise Head Exam: Atraumatic, Normocephalic Neck: Normal Inspection, Supple, Non-Tender, Full Range of Motion Respiratory/Chest: No Respiratory Distress, Lungs Clear, Normal Breath Sounds, No Accessory Muscle Use, Chest Non-Tender Cardiovascular: Normal Peripheral Pulses, Regular Rate, Rhythm, No Edema, No Gallop, No JVD, No Murmur, No Rub GI/Abdominal: Normal Bowel Sounds, Soft, Non-Tender, No Organomegaly, No Distention, No Abnormal Bruit, No Mass (Female) Exam: Normal External Exam, Normal Speculum Exam, Normal Bimanual Exam Rectal (Female) Exam: Normal Exam, Normal Rectal Tone Neurological: Alert, Normal Mood/Affect, Normal Dorsiflexion, CN II-XII Intact, Normal Plantar Flexion, Normal Gait, Normal Reflexes, No Motor/Sensory Deficits , Oriented x 3 Back Exam: Normal Inspection, Full Range of Motion, NT Extremities: Normal Inspection, Normal Range of Motion, Non-Tender, No Pedal Edema, Normal Capillary Refill Psychiatric: Normal Affect, Normal Mood Skin Exam: Warm, Dry, Intact, Normal Color, No Rash EKG INTERPRETATION Rhythm: NSR Course - Vital Signs Last Recorded V/S: Last Vital Signs Temp Pulse Resp BP 177/58 H 03/12/19 23:02 Pulse Ox - Orders/Labs/Meds Orders: Active Orders 24 hr Category Date Time Status EKG Documentation Completion [RC] ASDIRECTED Care 03/12/19 21:53 Active Head wo Cont [CT] Stat Exams 03/12/19 21:53 Taken EKG 12 Lead [EK] Routine Ther 03/12/19 21:53 Ordered Labs: Laboratory Tests 03/12/19 03/12/19 03/12/19 Range/Units 22:15 22:15 22:15 WBC 8.8 (4.5-12.0) X10-3/uL RBC 4.43 (3.23-5.20) x10(6)uL Hgb 12.6 (11.5-15.5) g/dL Hct 37.2 (30.0-51.3) % MCV 83.9 (80-96) fL MCH 28.5 (27.7-33.6) pg MCHC 34.0 (32.2-35.4) g/dL RDW 13.8 (11.5-15.5) % Plt Count 334 (125-369) X10(3)uL MPV 7.5 (7.4-10.4) fL Neut % (Auto) 74.8 (46-82) % Lymph % (Auto) 13.4 (13-37) % Tucker % (Auto) 10.3 (4-12) % Eos % (Auto) 1 (1.0-5.0) % Baso % (Auto) 0 (0-2) % Neut # (Auto) 6.6 (1.6-8.3) # Lymph # (Auto) 1.2 (0.6-5.0) # Tucker # (Auto) 0.9 (0.0-1.3) # Eos # (Auto) 0.1 (0.0-0.8) # Baso # (Auto) 0.0 (0.0-0.2) # PT (8.7-11.1) INR (0.89-1.13) Sodium 137 (135-145) mmol/L Potassium 3.8 (3.5-5.3) mmol/L Chloride 99 L D (100-110) mmol/L Carbon Dioxide 30 (21-32) mmol/L BUN 23 H D (7-18) mg/dL Creatinine 0.9 (0.55-1.02) mg/dL Est Cr Clr Drug Dosing TNP Estimated GFR (MDRD) > 60 (>60) BUN/Creatinine Ratio 25.6 H (9-20) Glucose 117 H (80-116) mg/dL Calcium 9.0 (8.6-10.2) mg/dL Troponin I < 0.017 L (<0.017-0.056) ng/mL 03/12/19 Range/Units 22:15 WBC (4.5-12.0) X10-3/uL RBC (3.23-5.20) x10(6)uL Hgb (11.5-15.5) g/dL Hct (30.0-51.3) % MCV (80-96) fL MCH (27.7-33.6) pg MCHC (32.2-35.4) g/dL RDW (11.5-15.5) % Plt Count (125-369) X10(3)uL MPV (7.4-10.4) fL Neut % (Auto) (46-82) % Lymph % (Auto) (13-37) % Tucker % (Auto) (4-12) % Eos % (Auto) (1.0-5.0) % Baso % (Auto) (0-2) % Neut # (Auto) (1.6-8.3) # Lymph # (Auto) (0.6-5.0) # Tucker # (Auto) (0.0-1.3) # Eos # (Auto) (0.0-0.8) # Baso # (Auto) (0.0-0.2) # PT 40.6 H* (8.7-11.1) INR 4.25 H* (0.89-1.13) Sodium (135-145) mmol/L Potassium (3.5-5.3) mmol/L Chloride (100-110) mmol/L Carbon Dioxide (21-32) mmol/L BUN (7-18) mg/dL Creatinine (0.55-1.02) mg/dL Est Cr Clr Drug Dosing Estimated GFR (MDRD) (>60) BUN/Creatinine Ratio (9-20) Glucose (80-116) mg/dL Calcium (8.6-10.2) mg/dL Troponin I (<0.017-0.056) ng/mL Meds: Medications Discontinued Medications Generic Name Dose Route Start Last Admin Trade Name Freq PRN Reason Stop Dose Admin Clonidine HCl 0.1 mg 03/12/19 22:43 03/12/19 23:02 Catapres PO 03/12/19 22:44 0.1 mg ONETIME ONE Administration Departure - Departure Time of Disposition: 20:00 Disposition: Home, Self-Care 01 Condition: Good Clinical Impression: Speech disturbance, HTN (hypertension) - Discharge Information Referrals: Vasyl Cuevas MD [Primary Care Provider] - Forms: ED Department Discharge Care Plan Goals: Follow up with Dr. Cuevas on March. Sepsis Event Note - Focused Exam Vital Signs: Vital Signs BP 03/12/19 23:02 177/58 H Date Exam was Performed: 03/13/19 Time Exam was Performed: 08:12 - Problem List & Annotations (1) Speech disturbance SNOMED Code(s): 16934906, 96195520, 429875496 Code(s): R47.9 - UNSPECIFIED SPEECH DISTURBANCES Status: Acute Current Visit: No Qualifiers: Speech disturbance type: aphasia Qualified Code(s): R47.01 - Aphasia (2) HTN (hypertension) SNOMED Code(s): 70695839 Code(s): I10 - ESSENTIAL (PRIMARY) HYPERTENSION Status: Acute Current Visit: No Qualifiers: Hypertension type: essential hypertension Qualified Code(s): I10 - Essential (primary) hypertension - Problem List Review Problem List Initiated/Reviewed/Updated: Yes - My Orders Last 24 Hours: My Active Orders 03/12/19 21:53 EKG Documentation Completion [RC] ASDIRECTED Head wo Cont [CT] Stat EKG 12 Lead [EK] Routine - Assessment/Plan Last 24 Hours: My Active Orders 03/12/19 21:53 EKG Documentation Completion [RC] ASDIRECTED Head wo Cont [CT] Stat EKG 12 Lead [EK] Routine Plan: CT was not diagnostic of any acute ischemia. I gave her 0.1 mg of Catapress. DC home with F/u in [address] Cuevas
[2019-03-12] MEDS ORDERED: cloNIDine 0.1 MG Tab PO ONE (22:43)
[2019-03-13 21:44] VITALS: PULSE 87
[2019-03-13 21:45] VITALS: BP 148/75
== END 2019-03-13 | disposition home or self-care (01) ==
LOC: FB.ED 21:43
DX: R47.9 Unspecified speech disturbances (principal); I10 Essential (primary) hypertension; E11.40 Type 2 diabetes mellitus with diabetic neuropathy, unspecified; Z88.0 Allergy status to penicillin; Z88.6 Allergy status to analgesic agent; Z88.8 Allergy status to other drugs, medicaments and biological substances; Z79.01 Long term (current) use of anticoagulants; Z79.899 Other long term (current) drug therapy; Z98.51 Tubal ligation status; Z90.710 Acquired absence of both cervix and uterus; Z98.890 Other specified postprocedural states
CPT/HCPCS: 36415; 70450; 80048; 84484; 85025; 85610; 93005; 99285; A9270; 93010; 99284